=== PATIENT | male | born 1965 | race Caucasian/White ===

== ENCOUNTER 2017-04-05 08:40 | Outpatient (RCR) | payer MEDICAID, SELFPAY ==
[2017-04-05 08:48] VITALS: BP 103/62; PULSE 89; RESP 18; TEMP 36.8; BMI 56.7
--- NOTE | 2017-04-05 10:22 | PCM.WC.HP ---
(1) Chronic ulcer of left foot with fat layer exposed Status: Chronic Current Visit: Yes Code(s): L97.522 - Non-pressure chronic ulcer of other part of left foot with fat layer exposed (2) Ulcer of right lower extremity with fat layer exposed Status: Chronic Current Visit: Yes Code(s): L97.912 - Non-pressure chronic ulcer of unspecified part of right lower leg with fat layer exposed (3) Malnutrition Status: Chronic Current Visit: Yes Code(s): E46 - Unspecified protein-calorie malnutrition (4) PAD (peripheral artery disease) Status: Chronic Current Visit: Yes Code(s): I73.9 - Peripheral vascular disease, unspecified (5) Type 2 diabetes mellitus with diabetic polyneuropathy Status: Chronic Current Visit: Yes Code(s): E11.42 - Type 2 diabetes mellitus with diabetic polyneuropathy History of Present Illness Date of Service: 04/05/17 Chief Complaint: right leg ulcer. left foot ulcer History of Wound: This 50-year-old male with diabetes and peripheral vascular disease presents the wound care center for chronic right leg ulcer and his previous below-knee amputation stump site. Dr. Gamez performed his surgery on February 02, 2017 and he had a subsequent dehiscence and cellulitis that is now resolved. He also has a chronic left foot ulcer that has been present for almost 3 months. [facility]. He has been discharged by his surgeon at this time. He wears a surgical shoe on the left lower extremity to keep pressure off the ulcer site however he presents wearing a slipper today. He takes nutritional supplements including Fracisco at this time. He is previously known to our vascular surgeon, Dr. Cristina who treated him for a right popliteal occlusion with a stent. He did not have intervention performed on his left popliteal occlusion site and has a future follow-up. The exact date is not known at this time. He denies recent injury, fever, chill, nausea, redness, or odor. He is previously well known to me. Past Medical History Past Medical History: Chronic Problems CAD (coronary artery disease) (Chronic) Diabetes (Chronic) HTN (hypertension) (Chronic) Dyslipidemia (Chronic) Depression (Chronic) PAD (peripheral artery disease) (Chronic) Type 2 diabetes mellitus with diabetic polyneuropathy (Chronic) Chronic ulcer of left foot with fat layer exposed (Chronic) Ulcer of right lower extremity with fat layer exposed (Chronic) Malnutrition (Chronic) Past Medical History: Peripheral vascular disease, diabetes with neuropathy, history of heroin abuse Surgical History: - - surgeries for cellulitis on each side of groin, 2 foot amputations surgeries, right below-knee amputation, stent placement for right popliteal artery occlusion Allergies/Adverse Reactions: Allergies Penicillins [PCN] Allergy (Verified 04/05/17 09:04) Hives Home Medications: Ambulatory Orders Medication Instructions Recorded Acetaminophen [Tylenol Tablet] 325 - 650 mg PO Q6H PRN tablet 01/05/17 Clopidogrel Bisulfate [Plavix] 75 mg PO DAILY #30 tablet 01/05/17 Glucerna Shake 120 ml PO 4X/DAY 01/05/17 Lactobacillus Acidophilus 1 tablet PO BID #60 tablet 01/05/17 [Acidophilus] Mag Hydrox/Al Hydrox/Simeth 30 ml PO Q6H PRN PRN udc 01/05/17 [Mylanta II] Metformin HCl [Glucophage] 1,000 mg PO BIDCM #60 tablet 01/05/17 Metoprolol Tartrate [Lopressor 12.5 mg PO BID #60 tablet 01/05/17 (beta marina)] Nutritional Supplement [Fracisco - 1 packet PO BIDCM #60 packet 01/05/17 [place] FLAVOR] Bupropion HCl [Wellbutrin Xl] 150 mg PO DAILY 01/31/17 Aspirin 325 mg PO BIDCM tablet 02/06/17 Docusate Sodium [Colace] 200 mg PO BID PRN PRN capsule 02/06/17 Insulin Aspart [Novolog Flexpen] 4 units SC DAILY@0700 02/06/17 Insulin Aspart [Novolog Flexpen] 6 units SC DAILY@1100 02/06/17 Insulin Aspart [Novolog Flexpen] 6 units SC DAILY@1600 02/06/17 Insulin Detemir [Levemir FlexPen] 10 units SC QHS 02/06/17 - Family History Maternal No pertinent history Lives: Custodial Smoking Status: Current every day smoker Review of Systems Constitutional: Denies: Chills, Fever, Weakness Cardiovascular: Denies: Chest Pain, Edema Gastrointestinal: Denies: Nausea, Vomiting Musculoskeletal: Reports: Leg Pain - at wound, - - amputation right leg. Denies: Foot Pain Skin: Reports: Skin Changes, Wounds Neurological: Reports: Incoordination, Numbness, Tingling - Physical Exam Vital Signs Temp Pulse Resp BP 98.2 F 89 18 103/62 04/05/17 08:48 04/05/17 08:48 04/05/17 08:48 04/05/17 08:48 General: Alert, Oriented x3, Cooperative HEENT: Atraumatic Extremities: No cyanosis, Capillary Refill Less than 3 Seconds - Dorsal and plantar right below-knee amputation stump site and to all digits of the left foot, Diminished Peripheral Pulses, Edema - right leg stump site Skin: Ulcer/ Wound - No purulence, no erythema, no streaking, no infection, no odor bilateral. The left foot ulcer is decreased in size. The distal aspect of the wound has returned eschar and there is interspersed fibrous and granular base noted. There is no bone or deep tissue exposed Wound Measurements and Assessment - Nurse 1 - General Ulcer Measurement Start: 04/05/17 08:47 Freq: Status: Active Protocol: Activity Type Activity Date Activity User E-Sign Co-Sign Detail Recorded Client Recorded Date Recorded By Document 04/05/17 08:48 DL [id number] 04/05/17 09:00 DL 04/05/17 08:48 Wound Center Nurse 1 [Ulcer Assessment Protocol: WC.WD.LOC] #2 L Plantar -Current Size (cm) - Length 0.7 -Current Size (cm) - Width 0.3 -Current Size (cm) - Depth 0.3 -Total Square Cm 0.21 -Photo Taken Yes -Classification - Thickness Full Thickness without Exposed Support Structure -Exudate Amt Small (1-33%) -Exudate Type Serosanguineous -Wound Margin Distinct, Outline Attached -Granulation Amt Small (1-33%) -Granulation Quality [place] -Necrosis Amt Small (1-33%) -Necrotic Tissue Type Adherent Slough -Structure Exposed N/A -Moisture (Elena-wound Skin Appearance Dry/Scaly ) -Color (Elena-wound Skin Appearance) No Abnormality -Temperature (Elena-wound Skin No Abnormality Appearance) (Pt Warm) -Ulcer Cleansing Rinsed/ Irrigated with Saline -Foul Odor after Cleansing No -Anesthetic Used 4% Lidocaine Solution #1 R BKA Stump -Current Size (cm) - Length 2.2 -Current Size (cm) - Width 4.6 -Current Size (cm) - Depth 0.5 -Total Square Cm 10.12 -Photo Taken Yes -Classification - Thickness Full Thickness without Exposed Support Structure -Exudate Amt Medium (34-66%) -Exudate Type Serosanguineous -Wound Margin Distinct, Outline Attached -Granulation Amt Medium (34-66%) -Granulation Quality Red -Necrosis Amt Medium (34-66%) -Necrotic Tissue Type Adherent Slough -Structure Exposed N/A -Texture (Elena-wound Skin Appearance) No Abnormality -Moisture (Elena-wound Skin Appearance No Abnormality ) -Color (Elena-wound Skin Appearance) Erythema Rubor -Temperature (Elena-wound Skin No Abnormality Appearance) (Pt Warm) -Tenderness on Palpation (Elena-wound No Skin Appearance) -Ulcer Cleansing Wound Cleanser -Foul Odor after Cleansing No -Anesthetic Used 4% Lidocaine Solution [Edema Assessment] -Left Calf (cm) 34.5 -Left Ankle (cm) 22.2 WC - Nurse 2 - General Ulcer CM Notes Start: 04/05/17 08:47 Freq: Status: Active Protocol: Activity Type Activity Date Activity User E-Sign Co-Sign Detail Recorded Client Recorded Date Recorded By Document 04/05/17 09:24 [id number] 04/05/17 09:26 ALONDRA 04/05/17 09:24 Wound Center Nurse 2 [Procedure/Treatment] #2 L Plantar -Time 09:25 -Correct Patient Yes -Correct Side, Site, Position Yes -Correct Procedure Yes -Procedure Performed Yes -Type of Procedure Debridement -Clinical Debridement Subcutaneous -Post Debridement Size (cm) - Length 0.8 -Post Debridement Size (cm) - Width 0.3 -Post Debridement Size (cm) - Depth 0.3 -Total Square Cm 0.24 -Ulcer Cleansing Rinsed/ Irrigated with Saline -Foul Odor after Cleansing No -Bioengineered Tissue No -Cetacaine [place] No -Bleeding Controlled with Pressure -Treatment Response Procedure Tolerated Well #1 R BKA Stump -Time 09:26 -Correct Patient Yes -Correct Side, Site, Position Yes -Correct Procedure Yes -Procedure Performed Yes -Type of Procedure Debridement -Clinical Debridement Subcutaneous -Post Debridement Size (cm) - Length 2.3 -Post Debridement Size (cm) - Width 4.6 -Post Debridement Size (cm) - Depth 0.5 -Total Square Cm 10.58 -Wound/Ulcer Outcome Not Healed -Ulcer Cleansing Rinsed/ Irrigated with Saline -Foul Odor after Cleansing No -Bioengineered Tissue No -Cetacaine [place] No -Bleeding Controlled with Pressure -Treatment Response Procedure Tolerated Well [See Physician Procedure note for Specifics] Pain Scale: 0-10 Numeric [Pain] -Is Patient Pain Free? Yes Musculoskeletal: No Tenderness to Palpation of Joints or Extremities, Muscle Wasting, Tenderness - Pain with right ulcer manipulation and no pain to the left, - - Right below-knee amputation. Dorsal contraction of lesser digits prominent metatarsal head Neurological: - - Lack of epicritic sensation noted to left lower extremity Psych/Mental Status: Normal Affect, Appropriate Debridement Note Post-Debridement Measurements/Treatment WC - Nurse 2 - General Ulcer CM Notes Start: 04/05/17 08:47 Freq: Status: Active Protocol: Activity Type Activity Date Activity User E-Sign Co-Sign Detail Recorded Client Recorded Date Recorded By Document 04/05/17 09:24 ALONDRA [id number] 04/05/17 09:26 ALONDRA 04/05/17 09:24 Wound Center Nurse 2 #2 L Plantar -Time 09:25 -Correct Patient Yes -Correct Side, Site, Position Yes -Correct Procedure Yes -Procedure Performed Yes -Type of Procedure Debridement -Clinical Debridement Subcutaneous -Post Debridement Size (cm) - Length 0.8 -Post Debridement Size (cm) - Width 0.3 -Post Debridement Size (cm) - Depth 0.3 -Total Square Cm 0.24 -Ulcer Cleansing Rinsed/ Irrigated with Saline -Foul Odor after Cleansing No -Bioengineered Tissue No -Cetacaine [place] No -Bleeding Controlled with Pressure -Treatment Response Procedure Tolerated Well #1 R BKA Stump -Time 09:26 -Correct Patient Yes -Correct Side, Site, Position Yes -Correct Procedure Yes -Procedure Performed Yes -Type of Procedure Debridement -Clinical Debridement Subcutaneous -Post Debridement Size (cm) - Length 2.3 -Post Debridement Size (cm) - Width 4.6 -Post Debridement Size (cm) - Depth 0.5 -Total Square Cm 10.58 -Wound/Ulcer Outcome Not Healed -Ulcer Cleansing Rinsed/ Irrigated with Saline -Foul Odor after Cleansing No -Bioengineered Tissue No -Cetacaine [place] No -Bleeding Controlled with Pressure -Treatment Response Procedure Tolerated Well Pain Scale: 0-10 Numeric Is Patient Pain Free? Yes Wound debrided: Medial below-knee amputation stump site Laterality: Right Wound Grade/Stage: Grade 1 Type of Debridement: Excisional debridement Anesthesia Used: 4% Lidocaine Solution Depth: in the subcutaneous layer Percentage of wound debrided: 100 Instrument Used: #15 blade Tissue Removed: fibrous, devitalized subcutaneous, biofilm, slough, eschar Severity: Fat Layer Exposed Amount of bleeding with debridement: Mild Bleeding Controlled with: Pressure Patient tolerated procedure well - Additional Wound Wound debrided: Submetatarsal head Laterality: Left Wound Grade/Stage: Grade 1 Type of Debridement: Excisional debridement Anesthesia Used: 4% Lidocaine Solution Depth: in the subcutaneous layer Percentage of wound debrided: 100 Instrument Used: #15 blade Tissue Removed: fibrous, devitalized subcutaneous, biofilm, slough Severity: Fat Layer Exposed Amount of bleeding with debridement: Mild Bleeding Controlled with: Pressure Patient tolerated procedure: Patient tolerated procedure well Assessment/Plan Active Problems PAD (peripheral artery disease) (Chronic) Type 2 diabetes mellitus with diabetic polyneuropathy (Chronic) Chronic ulcer of left foot with fat layer exposed (Chronic) Ulcer of right lower extremity with fat layer exposed (Chronic) Malnutrition (Chronic) Assessment: Right leg ulcer with fat layer exposed. Left foot ulcer with fat layer exposed. Right below-knee amputation with medial dehiscence and resolved cellulitis. Left Hammer digit syndrome. Peripheral vascular disease status post stenting to the popliteal artery on the right lower extremity. Diabetes with peripheral neuropathy. Malnutrition. Delayed healing. History of drug abuse. Smoker Plan: I reviewed and discussed his plan today. Debridement was performed as noted in the clinical panel. I recommended Santyl application daily with gauze dressing. This was ordered and applied today. I recommend decreasing edema to the right lower extremity with standard moisture meter reader application. He does not have apparent left lower extremity edema. He has known peripheral vascular disease with right popliteal stenting performed by vascular surgeon, Dr. Cristina. 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 To optimize healing by drinking 2 Fracisco supplements daily at his [facility] facility. To keep weight off of his left foot by heel weightbearing in a surgical shoe. This was previously provided. I will continue to monitor him with serial foot x-rays and labs. He was reassured there are no clinical signs of infection noted today. I recommend he follows up in 1 week or call sooner if he has any questions or concerns. To DC smoking to also optimize healing.
--- NOTE | 2017-04-05 10:33 | HP.PCM_ITS ---
(1) Chronic ulcer of left foot with fat layer exposed Status: Chronic Current Visit: Yes Code(s): L97.522 - Non-pressure chronic ulcer of other part of left foot with fat layer exposed (2) Ulcer of right lower extremity with fat layer exposed Status: Chronic Current Visit: Yes Code(s): L97.912 - Non-pressure chronic ulcer of unspecified part of right lower leg with fat layer exposed (3) Malnutrition Status: Chronic Current Visit: Yes Code(s): E46 - Unspecified protein- calorie malnutrition (4) PAD (peripheral artery disease) Status: Chronic Current Visit: Yes Code(s): I73.9 - Peripheral vascular disease, unspecified (5) Type 2 diabetes mellitus with diabetic polyneuropathy Status: Chronic Current Visit: Yes Code(s): E11.42 - Type 2 diabetes mellitus with diabetic polyneuropathy History of Present Illness Date of Service: 04/05/17 Chief Complaint: right leg ulcer. left foot ulcer History of Wound: This 50-year-old male with diabetes and peripheral vascular disease presents the wound care center for chronic right leg ulcer and his previous below-knee amputation stump site. Dr. Gamez performed his surgery on February 02, 2017 and he had a subsequent dehiscence and cellulitis that is now resolved. He also has a chronic left foot ulcer that has been present for almost 3 months. He resides at a long-term facility. He has been discharged by his surgeon at this time. He wears a surgical shoe on the left lower extremity to keep pressure off the ulcer site however he presents wearing a slipper today. He takes nutritional supplements including Fracisco at this time. He is previously known to our vascular surgeon, Dr. Cristina who treated him for a right popliteal occlusion with a stent. He did not have intervention performed on his left popliteal occlusion site and has a future follow-up. The exact date is not known at this time. He denies recent injury, fever, chill, nausea, redness, or odor. He is previously well known to me. Past Medical History Past Medical History: Chronic Problems CAD (coronary artery disease) (Chronic) Diabetes (Chronic) HTN (hypertension) (Chronic) Dyslipidemia (Chronic) Depression (Chronic) PAD (peripheral artery disease) (Chronic) Type 2 diabetes mellitus with diabetic polyneuropathy (Chronic) Chronic ulcer of left foot with fat layer exposed (Chronic) Ulcer of right lower extremity with fat layer exposed (Chronic) Malnutrition (Chronic) Past Medical History: Peripheral vascular disease, diabetes with neuropathy, history of heroin abuse Surgical History: - - surgeries for cellulitis on each side of groin, 2 foot amputations surgeries, right below-knee amputation, stent placement for right popliteal artery occlusion Allergies/Adverse Reactions: Allergies Penicillins [PCN] Allergy (Verified 04/05/17 09:04) Hives Home Medications: Ambulatory Orders Medication Instructions Recorded Acetaminophen [Tylenol Tablet] 325 - 650 mg PO Q6H PRN tablet 01/05/17 Clopidogrel Bisulfate [Plavix] 75 mg PO DAILY #30 tablet 01/05/17 Glucerna Shake 120 ml PO 4X/DAY 01/05/17 Lactobacillus Acidophilus 1 tablet PO BID #60 tablet 01/05/17 [Acidophilus] Mag Hydrox/Al Hydrox/Simeth 30 ml PO Q6H PRN PRN udc 01/05/17 [Mylanta II] Metformin HCl [Glucophage] 1,000 mg PO BIDCM #60 tablet 01/05/17 Metoprolol Tartrate [Lopressor 12.5 mg PO BID #60 tablet 01/05/17 (beta marina)] Nutritional Supplement [Fracisco - 1 packet PO BIDCM #60 packet 01/05/17 ORANGE FLAVOR] Bupropion HCl [Wellbutrin Xl] 150 mg PO DAILY 01/31/17 Aspirin 325 mg PO BIDCM tablet 02/06/17 Docusate Sodium [Colace] 200 mg PO BID PRN PRN capsule 02/06/17 Insulin Aspart [Novolog Flexpen] 4 units SC DAILY@0700 02/06/17 Insulin Aspart [Novolog Flexpen] 6 units SC DAILY@1100 02/06/17 Insulin Aspart [Novolog Flexpen] 6 units SC DAILY@1600 02/06/17 Insulin Detemir [Levemir FlexPen] 10 units SC QHS 02/06/17 - Family History Maternal No pertinent history Lives: Custodial Smoking Status: Current every day smoker Review of Systems Constitutional: Denies: Chills, Fever, Weakness Cardiovascular: Denies: Chest Pain, Edema Gastrointestinal: Denies: Nausea, Vomiting Musculoskeletal: Reports: Leg Pain - at wound, - - amputation right leg. Denies : Foot Pain Skin: Reports: Skin Changes, Wounds Neurological: Reports: Incoordination, Numbness, Tingling - Physical Exam Vital Signs Temp Pulse Resp BP 98.2 F 89 18 103/62 04/05/17 08:48 04/05/17 08:48 04/05/17 08:48 04/05/17 08:48 General: Alert, Oriented x3, Cooperative HEENT: Atraumatic Extremities: No cyanosis, Capillary Refill Less than 3 Seconds - Dorsal and plantar right below-knee amputation stump site and to all digits of the left foot, Diminished Peripheral Pulses, Edema - right leg stump site Skin: Ulcer/ Wound - No purulence, no erythema, no streaking, no infection, no odor bilateral. The left foot ulcer is decreased in size. The distal aspect of the wound has returned eschar and there is interspersed fibrous and granular base noted. There is no bone or deep tissue exposed Wound Measurements and Assessment - Nurse 1 - General Ulcer Measurement Start: 04/05/17 08:47 Freq: Status: Active Protocol: Activity Type Activity Date Activity User E-Sign Co-Sign Detail Recorded Client Recorded Date Recorded By Document 04/05/17 08:48 DL [id number] 04/05/17 09:00 DL 04/05/17 08:48 Wound Center Nurse 1 [Ulcer Assessment Protocol: WC.WD.LOC] #2 L Plantar -Current Size (cm) - Length 0.7 -Current Size (cm) - Width 0.3 -Current Size (cm) - Depth 0.3 -Total Square Cm 0.21 -Photo Taken Yes -Classification - Thickness Full Thickness without Exposed Support Structure -Exudate Amt Small (1-33%) -Exudate Type Serosanguineous -Wound Margin Distinct, Outline Attached -Granulation Amt Small (1-33%) -Granulation Quality [place] -Necrosis Amt Small (1-33%) -Necrotic Tissue Type Adherent Slough -Structure Exposed N/A -Moisture (Elena-wound Skin Appearance Dry/Scaly ) -Color (Elena-wound Skin Appearance) No Abnormality -Temperature (Elena-wound Skin No Abnormality Appearance) (Pt Warm) -Ulcer Cleansing Rinsed/ Irrigated with Saline -Foul Odor after Cleansing No -Anesthetic Used 4% Lidocaine Solution #1 R BKA Stump -Current Size (cm) - Length 2.2 -Current Size (cm) - Width 4.6 -Current Size (cm) - Depth 0.5 -Total Square Cm 10.12 -Photo Taken Yes -Classification - Thickness Full Thickness without Exposed Support Structure -Exudate Amt Medium (34-66%) -Exudate Type Serosanguineous -Wound Margin Distinct, Outline Attached -Granulation Amt Medium (34-66%) -Granulation Quality Red -Necrosis Amt Medium (34-66%) -Necrotic Tissue Type Adherent Slough -Structure Exposed N/A -Texture (Elena-wound Skin Appearance) No Abnormality -Moisture (Elena-wound Skin Appearance No Abnormality ) -Color (Elena-wound Skin Appearance) Erythema Rubor -Temperature (Elena-wound Skin No Abnormality Appearance) (Pt Warm) -Tenderness on Palpation (Elena-wound No Skin Appearance) -Ulcer Cleansing Wound Cleanser -Foul Odor after Cleansing No -Anesthetic Used 4% Lidocaine Solution [Edema Assessment] -Left Calf (cm) 34.5 -Left Ankle (cm) 22.2 WC - Nurse 2 - General Ulcer CM Notes Start: 04/05/17 08:47 Freq: Status: Active Protocol: Activity Type Activity Date Activity User E-Sign Co-Sign Detail Recorded Client Recorded Date Recorded By Document 04/05/17 09:24 [id number] 04/05/17 09:26 ALONDRA 04/05/17 09:24 Wound Center Nurse 2 [Procedure/Treatment] #2 L Plantar -Time 09:25 -Correct Patient Yes -Correct Side, Site, Position Yes -Correct Procedure Yes -Procedure Performed Yes -Type of Procedure Debridement -Clinical Debridement Subcutaneous -Post Debridement Size (cm) - Length 0.8 -Post Debridement Size (cm) - Width 0.3 -Post Debridement Size (cm) - Depth 0.3 -Total Square Cm 0.24 -Ulcer Cleansing Rinsed/ Irrigated with Saline -Foul Odor after Cleansing No -Bioengineered Tissue No -Cetacaine Hamer No -Bleeding Controlled with Pressure -Treatment Response Procedure Tolerated Well #1 R BKA Stump -Time 09:26 -Correct Patient Yes -Correct Side, Site, Position Yes -Correct Procedure Yes -Procedure Performed Yes -Type of Procedure Debridement -Clinical Debridement Subcutaneous -Post Debridement Size (cm) - Length 2.3 -Post Debridement Size (cm) - Width 4.6 -Post Debridement Size (cm) - Depth 0.5 -Total Square Cm 10.58 -Wound/Ulcer Outcome Not Healed -Ulcer Cleansing Rinsed/ Irrigated with Saline -Foul Odor after Cleansing No -Bioengineered Tissue No -Cetacaine Hamer No -Bleeding Controlled with Pressure -Treatment Response Procedure Tolerated Well [See Physician Procedure note for Specifics] Pain Scale: 0-10 Numeric [Pain] -Is Patient Pain Free? Yes Musculoskeletal: No Tenderness to Palpation of Joints or Extremities, Muscle Wasting, Tenderness - Pain with right ulcer manipulation and no pain to the left , - - Right below-knee amputation. Dorsal contraction of lesser digits prominent metatarsal head Neurological: - - Lack of epicritic sensation noted to left lower extremity Psych/Mental Status: Normal Affect, Appropriate Debridement Note Post-Debridement Measurements/Treatment WC - Nurse 2 - General Ulcer CM Notes Start: 04/05/17 08:47 Freq: Status: Active Protocol: Activity Type Activity Date Activity User E-Sign Co-Sign Detail Recorded Client Recorded Date Recorded By Document 04/05/17 09:24 ALONDRA [id number] 04/05/17 09:26 ALONDRA 04/05/17 09:24 Wound Center Nurse 2 #2 L Plantar -Time 09:25 -Correct Patient Yes -Correct Side, Site, Position Yes -Correct Procedure Yes -Procedure Performed Yes -Type of Procedure Debridement -Clinical Debridement Subcutaneous -Post Debridement Size (cm) - Length 0.8 -Post Debridement Size (cm) - Width 0.3 -Post Debridement Size (cm) - Depth 0.3 -Total Square Cm 0.24 -Ulcer Cleansing Rinsed/ Irrigated with Saline -Foul Odor after Cleansing No -Bioengineered Tissue No -Cetacaine Hamer No -Bleeding Controlled with Pressure -Treatment Response Procedure Tolerated Well #1 R BKA Stump -Time 09:26 -Correct Patient Yes -Correct Side, Site, Position Yes -Correct Procedure Yes -Procedure Performed Yes -Type of Procedure Debridement -Clinical Debridement Subcutaneous -Post Debridement Size (cm) - Length 2.3 -Post Debridement Size (cm) - Width 4.6 -Post Debridement Size (cm) - Depth 0.5 -Total Square Cm 10.58 -Wound/Ulcer Outcome Not Healed -Ulcer Cleansing Rinsed/ Irrigated with Saline -Foul Odor after Cleansing No -Bioengineered Tissue No -Cetacaine Hamer No -Bleeding Controlled with Pressure -Treatment Response Procedure Tolerated Well Pain Scale: 0-10 Numeric Is Patient Pain Free? Yes Wound debrided: Medial below-knee amputation stump site Laterality: Right Wound Grade/Stage: Grade 1 Type of Debridement: Excisional debridement Anesthesia Used: 4% Lidocaine Solution Depth: in the subcutaneous layer Percentage of wound debrided: 100 Instrument Used: #15 blade Tissue Removed: fibrous, devitalized subcutaneous, biofilm, slough, eschar Severity: Fat Layer Exposed Amount of bleeding with debridement: Mild Bleeding Controlled with: Pressure Patient tolerated procedure well - Additional Wound Wound debrided: Submetatarsal head Laterality: Left Wound Grade/Stage: Grade 1 Type of Debridement: Excisional debridement Anesthesia Used: 4% Lidocaine Solution Depth: in the subcutaneous layer Percentage of wound debrided: 100 Instrument Used: #15 blade Tissue Removed: fibrous, devitalized subcutaneous, biofilm, slough Severity: Fat Layer Exposed Amount of bleeding with debridement: Mild Bleeding Controlled with: Pressure Patient tolerated procedure: Patient tolerated procedure well Assessment/Plan Active Problems PAD (peripheral artery disease) (Chronic) Type 2 diabetes mellitus with diabetic polyneuropathy (Chronic) Chronic ulcer of left foot with fat layer exposed (Chronic) Ulcer of right lower extremity with fat layer exposed (Chronic) Malnutrition (Chronic) Assessment: Right leg ulcer with fat layer exposed. Left foot ulcer with fat layer exposed. Right below-knee amputation with medial dehiscence and resolved cellulitis. Left Hammer digit syndrome. Peripheral vascular disease status post stenting to the popliteal artery on the right lower extremity. Diabetes with peripheral neuropathy. Malnutrition. Delayed healing. History of drug abuse. Smoker Plan: I reviewed and discussed his plan today. Debridement was performed as noted in the clinical panel. I recommended Santyl application daily with gauze dressing. This was ordered and applied today. I recommend decreasing edema to the right lower extremity with standard aeronautical engineering professor application. He does not have apparent left lower extremity edema. He has known peripheral vascular disease with right popliteal stenting performed by vascular surgeon, Dr. Cristina. 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 To optimize healing by drinking 2 Fracisco supplements daily at his long-term facility. To keep weight off of his left foot by heel weightbearing in a surgical shoe. This was previously provided. I will continue to monitor him with serial foot x-rays and labs. He was reassured there are no clinical signs of infection noted today. I recommend he follows up in 1 week or call sooner if he has any questions or concerns. To DC smoking to also optimize healing.
== END 2017-04-26 23:59 ==
LOC: WC 08:40
PROVIDERS: Visit Provider Podiatrist
DX: E11.621 Type 2 diabetes mellitus with foot ulcer (principal); L97.812 Non-pressure chronic ulcer of other part of right lower leg with fat layer exposed; L97.522 Non-pressure chronic ulcer of other part of left foot with fat layer exposed; E11.622 Type 2 diabetes mellitus with other skin ulcer; E11.51 Type 2 diabetes mellitus with diabetic peripheral angiopathy without gangrene; E11.42 Type 2 diabetes mellitus with diabetic polyneuropathy; Z89.511 Acquired absence of right leg below knee; I25.10 Atherosclerotic heart disease of native coronary artery without angina pectoris; I10 Essential (primary) hypertension; E78.5 Hyperlipidemia, unspecified; Z79.899 Other long term (current) drug therapy; F41.9 Anxiety disorder, unspecified; Z79.02 Long term (current) use of antithrombotics/antiplatelets; Z79.4 Long term (current) use of insulin; Z79.82 Long term (current) use of aspirin; F17.200 Nicotine dependence, unspecified, uncomplicated
CPT/HCPCS: 11042; 99213; G0463

== ENCOUNTER 2017-05-24 13:30 | Outpatient (RCR) | payer MEDICAID, SELFPAY ==
[2017-01-02 14:15] VITALS: BP 115/62
[2017-04-05 08:48] VITALS: BP 103/62
[2017-04-27 01:06] VITALS: PULSE 89; RESP 18; TEMP 36.8
[2017-05-03 09:54] VITALS: BP 121/84; PULSE 83; RESP 16; TEMP 36.8; BMI 56.7
--- NOTE | 2017-05-03 10:36 | PCM.WC.PN ---
(1) Hammer toe of right foot Status: Chronic Current Visit: Yes Code(s): M20.41 - Other hammer toe(s) (acquired), right foot (2) Type 2 diabetes mellitus with diabetic polyneuropathy Status: Chronic Current Visit: Yes Code(s): E11.42 - Type 2 diabetes mellitus with diabetic polyneuropathy (3) Ulcer of right lower extremity with fat layer exposed Status: Chronic Current Visit: Yes Code(s): L97.912 - Non-pressure chronic ulcer of unspecified part of right lower leg with fat layer exposed (4) Chronic ulcer of left foot with fat layer exposed Status: Chronic Current Visit: Yes Code(s): L97.522 - Non-pressure chronic ulcer of other part of left foot with fat layer exposed (5) History of right below knee amputation Status: Chronic Current Visit: Yes Code(s): Z89.511 - Acquired absence of right leg below knee Type of Wound Date of Service: 05/03/17 Chief Complaint: right leg ulcer. left foot ulcer History of Wound: This 50-year-old male with diabetes and peripheral vascular disease presents the wound care center for chronic right leg ulcer and his previous below-knee amputation stump site. Dr. Gamez performed his surgery on February 02, 2017 and he had a subsequent dehiscence. He wears a surgical shoe to the left foot and tries to walk on his heel. He started wearing a shrink wrap to the right lower extremity preparation for eventual prosthesis. Progress of Wound: Stable - Physical Exam Vital Signs Temp Pulse Resp BP 98.2 F 83 16 121/84 H 05/03/17 09:54 05/03/17 09:54 05/03/17 09:54 05/03/17 09:54 General: Alert, Oriented x3, Cooperative Extremities: No cyanosis, Capillary Refill Less than 3 Seconds, No Calf Tenderness - Negative Germán and Cobian left, Diminished Peripheral Pulses, Edema, - - Right below-knee amputation Skin: Ulcer/ Wound - No purulence, no erythema, no streaking, no acute infection. There is some eschar that has reformed to the distal aspect of the right leg stump., - - hairless and atrophic Wound Measurements and Assessment WC - Nurse 1 - General Ulcer Measurement Start: 05/03/17 09:54 Freq: Status: Active Protocol: Activity Type Activity Date Activity User E-Sign Co-Sign Detail Recorded Client Recorded Date Recorded By Document 05/03/17 09:54 DL [id number] 05/03/17 10:04 DL 05/03/17 09:54 Wound Center Nurse 1 [Ulcer Assessment Protocol: WC.WD.LOC] #2 L Plantar -Current Size (cm) - Length 0.6 -Current Size (cm) - Width 0.3 -Current Size (cm) - Depth 0.2 -Total Square Cm 0.18 -Photo Taken No -Maximum Distance #2 (cm) 0.2 -Circular Undermining Yes -Exudate Amt Small (1-33%) -Exudate Type Serosanguineous -Wound Margin Distinct, Outline Attached -Granulation Amt Small (1-33%) -Granulation Quality [place] -Necrosis Amt None Present (0 %) -Structure Exposed N/A -Texture (Elena-wound Skin Appearance) Scarring -Moisture (Elena-wound Skin Appearance No Abnormality ) -Color (Elena-wound Skin Appearance) No Abnormality -Temperature (Elena-wound Skin No Abnormality Appearance) (Pt Warm) -Ulcer Cleansing Rinsed/ Irrigated with Saline -Foul Odor after Cleansing No -Anesthetic Used 4% Lidocaine Solution #1 R BKA Stump -Current Size (cm) - Length 2.4 -Current Size (cm) - Width 4.9 -Current Size (cm) - Depth 0.1 -Total Square Cm 11.76 -Photo Taken No -Exudate Amt Small (1-33%) -Exudate Type Serosanguineous -Wound Margin Distinct, Outline Attached -Granulation Amt Small (1-33%) -Granulation Quality Red -Necrosis Amt Large (67-100%) -Necrotic Tissue Type Adherent Slough -Structure Exposed N/A -Texture (Elena-wound Skin Appearance) No Abnormality -Moisture (Elena-wound Skin Appearance No Abnormality ) -Color (Elena-wound Skin Appearance) No Abnormality -Temperature (Elena-wound Skin No Abnormality Appearance) (Pt Warm) -Ulcer Cleansing Rinsed/ Irrigated with Saline -Foul Odor after Cleansing No -Anesthetic Used 4% Lidocaine Solution [Edema Assessment] -Left Calf (cm) 34.5 -Left Ankle (cm) 21.8 WC - Nurse 2 - General Ulcer CM Notes Start: 05/03/17 09:54 Freq: Status: Active Protocol: Activity Type Activity Date Activity User E-Sign Co-Sign Detail Recorded Client Recorded Date Recorded By Document 05/03/17 10:21 [id number] 05/03/17 10:24 05/03/17 10:21 Wound Center Nurse 2 [Procedure/Treatment] #2 L Plantar -Time 10:21 -Correct Patient Yes -Correct Side, Site, Position Yes -Correct Procedure Yes -Procedure Performed Yes -Type of Procedure Debridement -Clinical Debridement Subcutaneous -Post Debridement Size (cm) - Length 0.7 -Post Debridement Size (cm) - Width 0.4 -Post Debridement Size (cm) - Depth 0.2 -Total Square Cm 0.28 -Wound/Ulcer Outcome Not Healed -Ulcer Cleansing Rinsed/ Irrigated with Saline -Foul Odor after Cleansing No -Bioengineered Tissue No -Bleeding Controlled with Pressure -Treatment Response Procedure Tolerated Well #1 R BKA Stump -Time 10:22 -Correct Patient Yes -Correct Side, Site, Position Yes -Correct Procedure Yes -Procedure Performed Yes -Type of Procedure Debridement -Clinical Debridement Subcutaneous -Post Debridement Size (cm) - Length 2.5 -Post Debridement Size (cm) - Width 5.0 -Post Debridement Size (cm) - Depth 0.1 -Total Square Cm 12.50 -Wound/Ulcer Outcome Not Healed -Ulcer Cleansing Rinsed/ Irrigated with Saline -Foul Odor after Cleansing No -Bioengineered Tissue No -Bleeding Controlled with Pressure -Treatment Response Procedure Tolerated Well [See Physician Procedure note for Specifics] Pain Scale: 0-10 Numeric [Pain] -Is Patient Pain Free? Yes Musculoskeletal: No Tenderness to Palpation of Joints or Extremities, Muscle Wasting, Tenderness - right ulcer site, - - contraction of lesser toes and prominent metatarsal head Neurological: - - lack of epicritic sensation via light touch left lower extremity Psych/Mental Status: Normal Affect, Appropriate Debridement Note Post-Debridement Measurements/Treatment WC - Nurse 2 - General Ulcer CM Notes Start: 05/03/17 09:54 Freq: Status: Active Protocol: Activity Type Activity Date Activity User E-Sign Co-Sign Detail Recorded Client Recorded Date Recorded By Document 05/03/17 10:21 [id number] 05/03/17 10:24 05/03/17 10:21 Wound Center Nurse 2 #2 L Plantar -Time 10:21 -Correct Patient Yes -Correct Side, Site, Position Yes -Correct Procedure Yes -Procedure Performed Yes -Type of Procedure Debridement -Clinical Debridement Subcutaneous -Post Debridement Size (cm) - Length 0.7 -Post Debridement Size (cm) - Width 0.4 -Post Debridement Size (cm) - Depth 0.2 -Total Square Cm 0.28 -Wound/Ulcer Outcome Not Healed -Ulcer Cleansing Rinsed/ Irrigated with Saline -Foul Odor after Cleansing No -Bioengineered Tissue No -Bleeding Controlled with Pressure -Treatment Response Procedure Tolerated Well #1 R BKA Stump -Time 10:22 -Correct Patient Yes -Correct Side, Site, Position Yes -Correct Procedure Yes -Procedure Performed Yes -Type of Procedure Debridement -Clinical Debridement Subcutaneous -Post Debridement Size (cm) - Length 2.5 -Post Debridement Size (cm) - Width 5.0 -Post Debridement Size (cm) - Depth 0.1 -Total Square Cm 12.50 -Wound/Ulcer Outcome Not Healed -Ulcer Cleansing Rinsed/ Irrigated with Saline -Foul Odor after Cleansing No -Bioengineered Tissue No -Bleeding Controlled with Pressure -Treatment Response Procedure Tolerated Well Pain Scale: 0-10 Numeric Is Patient Pain Free? Yes Wound debrided: plantar foot Laterality: Left Wound Grade/Stage: grade 1 Type of Debridement: Excisional debridement Anesthesia Used: 4% Lidocaine Solution Depth: in the subcutaneous layer Percentage of wound debrided: 100 Instrument Used: #15 blade Tissue Removed: fibrous, devitalized subcutaneous, biofilm, slough Severity: Fat Layer Exposed Amount of bleeding with debridement: Mild Bleeding Controlled with: Pressure Patient tolerated procedure well - Additional Wound Wound debrided: bka stump site Laterality: Right Wound Grade/Stage: grade 1 Type of Debridement: Excisional debridement Anesthesia Used: 4% Lidocaine Solution Depth: in the subcutaneous layer Percentage of wound debrided: 100 Instrument Used: #15 blade Tissue Removed: fibrous, devitalized subcutaneous, biofilm, slough Severity: Fat Layer Exposed Amount of bleeding with debridement: Mild Bleeding Controlled with: Pressure Patient tolerated procedure: Patient tolerated procedure well Assessment/Plan Active Problems Hammer toe of right foot (Chronic) History of right below knee amputation (Chronic) Type 2 diabetes mellitus with diabetic polyneuropathy (Chronic) Ulcer of right lower extremity with fat layer exposed (Chronic) Chronic ulcer of left foot with fat layer exposed (Chronic) Assessment: Right leg ulcer with fat layer exposed. Left foot ulcer with fat layer exposed. Right below-knee amputation with medial dehiscence and resolved cellulitis. Left Hammer digit syndrome. Peripheral vascular disease status post stenting to the popliteal artery on the right lower extremity. Diabetes with peripheral neuropathy. Malnutrition. Delayed healing. History of drug abuse. Smoker Plan: I reviewed and discussed his plan today. Debridement was performed as noted in the clinical panel. I recommended Santyl application daily with gauze dressing. This was ordered and applied today. I recommend decreasing edema to the right lower extremity with standard medical staff credentialing coordinator application. He does not have apparent left lower extremity edema. He has known peripheral vascular disease with right popliteal stenting performed by vascular surgeon, Dr. Cristina. 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 To optimize healing by drinking two Fracisco supplements daily at his residential facility. To keep weight off of his left foot by heel weightbearing in a surgical shoe. This was previously provided. Additional offloading felt pad was applied. I will continue to monitor him with serial foot x-rays and labs. He was reassured there are no clinical signs of infection noted today. I recommend he follows up in 1 week or call sooner if he has any questions or concerns. To DC smoking to also optimize healing.
[2017-05-10 09:20] VITALS: BP 131/60; PULSE 86; RESP 18; TEMP 36.9; BMI 56.7
--- NOTE | 2017-05-10 11:35 | PCM.WC.PN ---
(1) Chronic ulcer of left foot with fat layer exposed Status: Chronic Code(s): L97.522 - Non-pressure chronic ulcer of other part of left foot with fat layer exposed (2) Ulcer of right lower extremity with fat layer exposed Status: Chronic Code(s): L97.912 - Non-pressure chronic ulcer of unspecified part of right lower leg with fat layer exposed (3) Type 2 diabetes mellitus with diabetic polyneuropathy Status: Chronic Code(s): E11.42 - Type 2 diabetes mellitus with diabetic polyneuropathy (4) History of right below knee amputation Status: Chronic Code(s): Z89.511 - Acquired absence of right leg below knee Type of Wound Date of Service: 05/13/17 Chief Complaint: right leg ulcer. left foot ulcer History of Wound: This 52-year-old male with diabetes and peripheral vascular disease presents the wound care center for chronic right leg ulcer and his previous below-knee amputation stump site. He wears a surgical shoe to the left foot and tries to walk on his heel. He is having difficulty maintaining control of his left ankle and ask for a different brace or boot. He resides at a long-term facility. Progress of Wound: Improving - Physical Exam Vital Signs Temp Pulse Resp BP 98.4 F 86 18 131/60 H 05/10/17 09:20 05/10/17 09:20 05/10/17 09:20 05/10/17 09:20 General: Alert, Oriented x3, Cooperative Extremities: No cyanosis, Capillary Refill Less than 3 Seconds, No Calf Tenderness - Negative Germán and Cobian left, Diminished Peripheral Pulses, Edema - Controlled Skin: Ulcer/ Wound - No purulence, no erythema, no streaking, no odor. There is decreased necrosis to the plantar aspect of the right ulcer stump site. There is no exposed bone or tissue noted., - - The skin is atrophic Wound Measurements and Assessment BRET - Nurse 1 - General Ulcer Measurement Start: 05/03/17 09:54 Freq: Status: Active Protocol: Activity Type Activity Date Activity User E-Sign Co-Sign Detail Recorded Client Recorded Date Recorded By Document 05/10/17 09:20 ALONDRA [id number] 05/10/17 09:22 ALONDRA 05/10/17 09:20 Wound Center Nurse 1 [Ulcer Assessment Protocol: BRET.ELVIA.LOC] #2 L Plantar -Combined with other wound No -Current Size (cm) - Length 0.4 -Current Size (cm) - Width 0.3 -Current Size (cm) - Depth 0.1 -Total Square Cm 0.12 -Photo Taken No -Epithelialization Small 1-33% -Tunneling No -Undermining/Tunneling No -Circular Undermining No -Exudate Amt None Present (0 %) -Wound Margin Flat & Intact -Granulation Amt None Present (0 %) -Slough/Fibrin Yes -Necrosis Amt Large (67-100%) -Necrotic Tissue Type Adherent Slough -Structure Exposed N/A -Texture (Elena-wound Skin Appearance) Assessed Callus -Moisture (Elena-wound Skin Appearance Assessed ) -Color (Elena-wound Skin Appearance) Assessed -Temperature (Elena-wound Skin No Abnormality Appearance) (Pt Warm) -Tenderness on Palpation (Elena-wound No Skin Appearance) -Ulcer Cleansing Rinsed/ Irrigated with Saline -Foul Odor after Cleansing No -Anesthetic Used 4% Lidocaine Solution #1 R BKA Stump -Combined with other wound No -Current Size (cm) - Length 2 -Current Size (cm) - Width 5 -Current Size (cm) - Depth 0.2 -Total Square Cm 10 -Photo Taken No -Epithelialization None Present -Tunneling No -Undermining/Tunneling No -Circular Undermining No -Exudate Amt Medium (34-66%) -Exudate Type Serosanguineous -Wound Margin Flat & Intact -Granulation Amt Medium (34-66%) -Granulation Quality Red -Slough/Fibrin Yes -Necrosis Amt Small (1-33%) -Necrotic Tissue Type Adherent Slough -Structure Exposed N/A -Texture (Elena-wound Skin Appearance) Assessed -Moisture (Elena-wound Skin Appearance Assessed ) Dry/Scaly -Color (Elena-wound Skin Appearance) Assessed -Temperature (Elena-wound Skin No Abnormality Appearance) (Pt Warm) -Tenderness on Palpation (Elena-wound No Skin Appearance) -Ulcer Cleansing Rinsed/ Irrigated with Saline -Foul Odor after Cleansing No -Anesthetic Used 4% Lidocaine Solution [Edema Assessment] -Lower Limb Edema Present Yes -Right Calf (cm) 33.0 -Left Calf (cm) 34.3 -Left Ankle (cm) 22.3 WC - Nurse 2 - General Ulcer CM Notes Start: 05/03/17 09:54 Freq: Status: Active Protocol: Activity Type Activity Date Activity User E-Sign Co-Sign Detail Recorded Client Recorded Date Recorded By Document 05/10/17 09:54 TM [id number] 05/10/17 09:55 05/10/17 09:54 Wound Center Nurse 2 [Procedure/Treatment] #2 L Plantar -Time 09:54 -Correct Patient Yes -Correct Side, Site, Position Yes -Correct Procedure Yes -Procedure Performed Yes -Type of Procedure Debridement -Clinical Debridement Subcutaneous -Post Debridement Size (cm) - Length 0.5 -Post Debridement Size (cm) - Width 0.4 -Post Debridement Size (cm) - Depth 0.2 -Total Square Cm 0.20 -Wound/Ulcer Outcome Not Healed -Ulcer Cleansing Rinsed/ Irrigated with Saline -Foul Odor after Cleansing No -Bioengineered Tissue No -Topical Lidocaine (%) 4 -Bleeding Controlled with Pressure -Treatment Response Procedure Tolerated Well #1 R BKA Stump -Time 09:54 -Correct Patient Yes -Correct Side, Site, Position Yes -Correct Procedure Yes -Procedure Performed Yes -Type of Procedure Debridement -Clinical Debridement Subcutaneous -Post Debridement Size (cm) - Length 2.1 -Post Debridement Size (cm) - Width 5.1 -Post Debridement Size (cm) - Depth 0.2 -Total Square Cm 10.71 -Wound/Ulcer Outcome Not Healed -Ulcer Cleansing Rinsed/ Irrigated with Saline -Foul Odor after Cleansing No -Bioengineered Tissue No -Topical Lidocaine (%) 4 -Bleeding Controlled with Pressure -Treatment Response Procedure Not Tolerated Well [See Physician Procedure note for Specifics] Pain Scale: 0-10 Numeric [Pain] -Is Patient Pain Free? Yes Musculoskeletal: No Tenderness to Palpation of Joints or Extremities, Muscle Wasting, - - Right below-knee amputation. Dorsal contraction of lesser digits left foot with prominent metatarsal head region. Neurological: - - Lack of epicritic sensation light touch left lower extremity Psych/Mental Status: Normal Affect, Appropriate Debridement Note Post-Debridement Measurements/Treatment WC - Nurse 2 - General Ulcer CM Notes Start: 05/03/17 09:54 Freq: Status: Active Protocol: Activity Type Activity Date Activity User E-Sign Co-Sign Detail Recorded Client Recorded Date Recorded By Document 05/03/17 10:21 TM [id number] 05/03/17 10:24 TM Document 05/10/17 09:54 [id number] 05/10/17 09:55 05/03/17 05/10/17 10:21 09:54 Wound Center Nurse 2 #2 L Plantar -Time 10:21 09:54 -Correct Patient Yes Yes -Correct Side, Site, Position Yes Yes -Correct Procedure Yes Yes -Procedure Performed Yes Yes -Type of Procedure Debridement Debridement -Clinical Debridement Subcutaneous Subcutaneous -Post Debridement Size (cm) - Length 0.7 0.5 -Post Debridement Size (cm) - Width 0.4 0.4 -Post Debridement Size (cm) - Depth 0.2 0.2 -Total Square Cm 0.28 0.20 -Wound/Ulcer Outcome Not Healed Not Healed -Ulcer Cleansing Rinsed/ Rinsed/ Irrigated with Irrigated with Saline Saline -Foul Odor after Cleansing No No -Bioengineered Tissue No No -Topical Lidocaine (%) 4 -Bleeding Controlled with Pressure Pressure -Treatment Response Procedure Procedure Tolerated Well Tolerated Well #1 R BKA Stump -Time 10:22 09:54 -Correct Patient Yes Yes -Correct Side, Site, Position Yes Yes -Correct Procedure Yes Yes -Procedure Performed Yes Yes -Type of Procedure Debridement Debridement -Clinical Debridement Subcutaneous Subcutaneous -Post Debridement Size (cm) - Length 2.5 2.1 -Post Debridement Size (cm) - Width 5.0 5.1 -Post Debridement Size (cm) - Depth 0.1 0.2 -Total Square Cm 12.50 10.71 -Wound/Ulcer Outcome Not Healed Not Healed -Ulcer Cleansing Rinsed/ Rinsed/ Irrigated with Irrigated with Saline Saline -Foul Odor after Cleansing No No -Bioengineered Tissue No No -Topical Lidocaine (%) 4 -Bleeding Controlled with Pressure Pressure -Treatment Response Procedure Procedure Not Tolerated Well Tolerated Well Pain Scale: 0-10 Numeric Is Patient Pain Free? Yes Yes Wound debrided: below knee amputation stump site Laterality: Right Wound Grade/Stage: grade 1 Type of Debridement: Excisional debridement Anesthesia Used: 4% Lidocaine Solution Depth: in the subcutaneous layer Percentage of wound debrided: 100 Instrument Used: #15 blade Tissue Removed: fibrous, devitalilzed subcutaneous, biofilm, slough Severity: Fat Layer Exposed Amount of bleeding with debridement: Mild Bleeding Controlled with: Pressure Patient tolerated procedure well - Additional Wound Wound debrided: sub metatarsal head Laterality: Left Wound Grade/Stage: grade 1 Type of Debridement: Excisional debridement Anesthesia Used: 4% Lidocaine Solution Depth: in the subcutaneous layer Percentage of wound debrided: 100 Instrument Used: #15 blade Tissue Removed: fibrous, devitalilzed subcutaneous, biofilm, slough Severity: Fat Layer Exposed Amount of bleeding with debridement: Mild Bleeding Controlled with: Pressure Patient tolerated procedure: Patient tolerated procedure well Assessment/Plan Assessment: Right leg ulcer with fat layer exposed. Left foot ulcer with fat layer exposed. Right below-knee amputation with medial dehiscence and resolved cellulitis. Left Hammer digit syndrome. Peripheral vascular disease status post stenting to the popliteal artery on the right lower extremity. Diabetes with peripheral neuropathy. Malnutrition. Delayed healing. History of drug abuse. Smoker Plan: I reviewed and discussed his plan today. Debridement was performed as noted in the clinical panel. I recommended continued Santyl application daily with gauze dressing. I recommend decreasing edema to the right lower extremity with standard sound engineer audio control application. He does not have apparent left lower extremity edema. He has known peripheral vascular disease with right popliteal stenting performed by vascular surgeon, Dr. Cristina. 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 To optimize healing by drinking two Fracisco supplements daily at his long-term facility. To keep weight off of his left foot by heel weightbearing in a CAM walker; this order was placed today. To continue to work with physical therapy at the long-term facility. This was previously provided. Additional offloading felt pad was applied. I will continue to monitor him with serial foot x-rays and labs. He was reassured there are no clinical signs of infection noted today. I recommend he follows up in 1 week or call sooner if he has any questions or concerns. To DC smoking to also optimize healing.
[2017-05-17 13:05] VITALS: BP 104/68; PULSE 92; RESP 16; TEMP 36.6; BMI 56.7
--- NOTE | 2017-05-17 14:21 | PCM.WC.PN ---
(1) Chronic ulcer of left foot with fat layer exposed Status: Chronic Current Visit: Yes Code(s): L97.522 - Non-pressure chronic ulcer of other part of left foot with fat layer exposed (2) Ulcer of right lower extremity with fat layer exposed Status: Chronic Current Visit: Yes Code(s): L97.912 - Non-pressure chronic ulcer of unspecified part of right lower leg with fat layer exposed (3) Type 2 diabetes mellitus with diabetic polyneuropathy Status: Chronic Current Visit: Yes Code(s): E11.42 - Type 2 diabetes mellitus with diabetic polyneuropathy (4) History of right below knee amputation Status: Chronic Current Visit: Yes Code(s): Z89.511 - Acquired absence of right leg below knee Type of Wound Date of Service: 05/17/17 Chief Complaint: right leg ulcer. left foot ulcer History of Wound: This 52-year-old male with diabetes and peripheral vascular disease presents the wound care center for chronic right leg ulcer and his previous below-knee amputation stump site. He wears a cam walker boot with offloading Plastizote to the left foot. He resides at a [facility]. He denies fever, chill, nausea, vomiting. Progress of Wound: Improving - Physical Exam Vital Signs Temp Pulse Resp BP 97.8 F 92 16 104/68 05/17/17 13:05 05/17/17 13:05 05/17/17 13:05 05/17/17 13:05 General: Alert, Oriented x3, Cooperative Extremities: No cyanosis, Capillary Refill Less than 3 Seconds, No Calf Tenderness - Negative Germán and Cobian left, Diminished Peripheral Pulses, Edema, - - Right below-knee amputation with decreased stump swelling Skin: Ulcer/ Wound - No purulence, no erythema, no streaking, no odor, no infection. There is decreased eschar and fibrous tissue to the right leg stump site., - - Atrophic skin Wound Measurements and Assessment WC - Nurse 1 - General Ulcer Measurement Start: 05/03/17 09:54 Freq: Status: Active Protocol: Activity Type Activity Date Activity User E-Sign Co-Sign Detail Recorded Client Recorded Date Recorded By Document 05/17/17 13:05 [facility] [id number] 05/17/17 13:18 [facility] 05/17/17 13:05 Wound Center Nurse 1 [Ulcer Assessment] #2 L Plantar -Combined with other wound No -Current Size (cm) - Length 0.4 -Current Size (cm) - Width 0.2 -Current Size (cm) - Depth 0.2 -Total Square Cm 0.08 -Date of Last Picture (Recall this 05/17/17 field) -Photo Taken Yes -Epithelialization None Present -Tunneling No -Undermining/Tunneling No -Exudate Amt Small (1-33%) -Exudate Type Serous -Wound Margin Distinct, Outline Attached -Granulation Amt Large (67-100%) -Granulation Quality [place] -Slough/Fibrin No -Necrosis Amt None Present (0 %) -Structure Exposed N/A -Texture (Elena-wound Skin Appearance) Callus -Moisture (Elena-wound Skin Appearance Dry/Scaly ) -Color (Elena-wound Skin Appearance) Assessed -Temperature (Elena-wound Skin No Abnormality Appearance) (Pt Warm) -Tenderness on Palpation (Elena-wound No Skin Appearance) -Ulcer Cleansing Wound Cleanser -Foul Odor after Cleansing No -Anesthetic Used 4% Lidocaine Solution #1 R BKA Stump -Combined with other wound No -Current Size (cm) - Length 1.5 -Current Size (cm) - Width 4 -Current Size (cm) - Depth 0.1 -Total Square Cm 6.0 -Date of Last Picture (Recall this 05/17/17 field) -Photo Taken Yes -Epithelialization Small 1-33% -Tunneling No -Undermining/Tunneling No -Exudate Amt Small (1-33%) -Exudate Type Serous -Wound Margin Distinct, Outline Attached -Granulation Amt Medium (34-66%) -Granulation Quality Red -Slough/Fibrin Yes -Necrosis Amt Medium (34-66%) -Necrotic Tissue Type Adherent Slough -Structure Exposed N/A -Texture (Elena-wound Skin Appearance) Scarring -Moisture (Elena-wound Skin Appearance Dry/Scaly ) -Color (Elena-wound Skin Appearance) Erythema -Temperature (Elena-wound Skin No Abnormality Appearance) (Pt Warm) -Tenderness on Palpation (Elena-wound Yes Skin Appearance) -Ulcer Cleansing Wound Cleanser -Foul Odor after Cleansing No -Anesthetic Used 4% Lidocaine Solution [Edema Assessment] -Right Calf (cm) 34.6 WC - Nurse 2 - General Ulcer CM Notes Start: 02/07/18 09:54 Freq: Status: Active Protocol: Activity Type Activity Date Activity User E-Sign Co-Sign Detail Recorded Client Recorded Date Recorded By Document 05/17/17 13:31 [id number] 05/17/17 13:34 05/17/17 13:31 Wound Center Nurse 2 [Procedure/Treatment] #2 L Plantar -Time 13:33 -Correct Patient Yes -Correct Side, Site, Position Yes -Correct Procedure Yes -Procedure Performed Yes -Type of Procedure Debridement -Clinical Debridement Subcutaneous -Post Debridement Size (cm) - Length 0.5 -Post Debridement Size (cm) - Width 0.3 -Post Debridement Size (cm) - Depth 0.2 -Total Square Cm 0.15 -Wound/Ulcer Outcome Not Healed -Ulcer Cleansing Rinsed/ Irrigated with Saline -Foul Odor after Cleansing No -Bioengineered Tissue No -Topical Lidocaine (%) 4 -Bleeding Controlled with Pressure -Treatment Response Procedure Tolerated Well #1 R BKA Stump -Time 13:33 -Correct Patient Yes -Correct Side, Site, Position Yes -Correct Procedure Yes -Procedure Performed Yes -Type of Procedure Debridement -Clinical Debridement Subcutaneous -Post Debridement Size (cm) - Length 1.6 -Post Debridement Size (cm) - Width 4.1 -Post Debridement Size (cm) - Depth 0.1 -Total Square Cm 6.56 -Wound/Ulcer Outcome Not Healed -Ulcer Cleansing Rinsed/ Irrigated with Saline -Foul Odor after Cleansing No -Bioengineered Tissue No -Topical Lidocaine (%) 4 -Bleeding Controlled with Pressure -Treatment Response Procedure Tolerated Well [See Physician Procedure note for Specifics] Pain Scale: 0-10 Numeric [Pain] -Is Patient Pain Free? Yes Musculoskeletal: No Tenderness to Palpation of Joints or Extremities, Muscle Wasting, - - Lesser toe contraction of prominent metatarsal head region inverted resting position of the left lower extremity with contraction of the foot in a slightly plantarflexed position noted this is reducible Neurological: - - Lack of epicritic sensation light touch left Psych/Mental Status: Normal Affect, Appropriate Debridement Note Post-Debridement Measurements/Treatment WC - Nurse 2 - General Ulcer CM Notes Start: 05/03/17 09:54 Freq: Status: Active Protocol: Activity Type Activity Date Activity User E-Sign Co-Sign Detail Recorded Client Recorded Date Recorded By Document 05/03/17 10:21 [id number] 05/03/17 10:24 TM Document 05/10/17 09:54 [id number] 05/10/17 09:55 TM Document 05/17/17 13:31 [id number] 05/17/17 13:34 05/03/17 05/10/17 05/17/17 10:21 09:54 13:31 Wound Center Nurse 2 #2 L Plantar -Time 10:21 09:54 13:33 -Correct Patient Yes Yes Yes -Correct Side, Site, Position Yes Yes Yes -Correct Procedure Yes Yes Yes -Procedure Performed Yes Yes Yes -Type of Procedure Debridement Debridement Debridement -Clinical Debridement Subcutaneous Subcutaneous Subcutaneous -Post Debridement Size (cm) - Length 0.7 0.5 0.5 -Post Debridement Size (cm) - Width 0.4 0.4 0.3 -Post Debridement Size (cm) - Depth 0.2 0.2 0.2 -Total Square Cm 0.28 0.20 0.15 -Wound/Ulcer Outcome Not Healed Not Healed Not Healed -Ulcer Cleansing Rinsed/ Rinsed/ Rinsed/ Irrigated with Irrigated with Irrigated with Saline Saline Saline -Foul Odor after Cleansing No No No -Bioengineered Tissue No No No -Topical Lidocaine (%) 4 4 -Bleeding Controlled with Pressure Pressure Pressure -Treatment Response Procedure Procedure Procedure Tolerated Well Tolerated Well Tolerated Well #1 R BKA Stump -Time 10:22 09:54 13:33 -Correct Patient Yes Yes Yes -Correct Side, Site, Position Yes Yes Yes -Correct Procedure Yes Yes Yes -Procedure Performed Yes Yes Yes -Type of Procedure Debridement Debridement Debridement -Clinical Debridement Subcutaneous Subcutaneous Subcutaneous -Post Debridement Size (cm) - Length 2.5 2.1 1.6 -Post Debridement Size (cm) - Width 5.0 5.1 4.1 -Post Debridement Size (cm) - Depth 0.1 0.2 0.1 -Total Square Cm 12.50 10.71 6.56 -Wound/Ulcer Outcome Not Healed Not Healed Not Healed -Ulcer Cleansing Rinsed/ Rinsed/ Rinsed/ Irrigated with Irrigated with Irrigated with Saline Saline Saline -Foul Odor after Cleansing No No No -Bioengineered Tissue No No No -Topical Lidocaine (%) 4 4 -Bleeding Controlled with Pressure Pressure Pressure -Treatment Response Procedure Procedure Not Procedure Tolerated Well Tolerated Well Tolerated Well Pain Scale: 0-10 Numeric Is Patient Pain Free? Yes Yes Yes Wound debrided: plantar foot Laterality: Left Wound Grade/Stage: grade 1 Type of Debridement: Excisional debridement Anesthesia Used: 4% Lidocaine Solution Depth: in the subcutaneous layer Percentage of wound debrided: 100 Instrument Used: #15 blade Tissue Removed: fibrous, devitalized subcutaneous, biofilm, slough Severity: Fat Layer Exposed Amount of bleeding with debridement: Mild Bleeding Controlled with: Pressure Patient tolerated procedure well - Additional Wound Wound debrided: leg stump site Laterality: Right Wound Grade/Stage: grade 1 Type of Debridement: Excisional debridement Anesthesia Used: 4% Lidocaine Solution Depth: in the subcutaneous layer Percentage of wound debrided: 100 Instrument Used: #15 blade Tissue Removed: fibrous, devitalized subcutaneous, biofilm, slough Severity: Fat Layer Exposed Amount of bleeding with debridement: Mild Bleeding Controlled with: Pressure Patient tolerated procedure: Patient tolerated procedure well Assessment/Plan Active Problems History of right below knee amputation (Chronic) Type 2 diabetes mellitus with diabetic polyneuropathy (Chronic) Ulcer of right lower extremity with fat layer exposed (Chronic) Chronic ulcer of left foot with fat layer exposed (Chronic) Assessment: Right leg ulcer with fat layer exposed. Left foot ulcer with fat layer exposed. Right below-knee amputation with medial dehiscence and resolved cellulitis. Left Hammer digit syndrome. Peripheral vascular disease status post stenting to the popliteal artery on the right lower extremity. Diabetes with peripheral neuropathy. Malnutrition. Delayed healing. History of drug abuse. Smoker Plan: I reviewed and discussed his plan today. Debridement was performed as noted in the clinical panel. I recommended continued Santyl application daily with gauze dressing. He has demonstrated recent improvement and I recommend transition to an advanced wound care products such as epi fix. The indication, purpose, anticipated healing and management were discussed in detail. He understands and elects to proceed at this time. Preauthorization will be initiated and he will be notified upon decision. I recommend decreasing edema to the right lower extremity with standard ticket printer application. He does not have apparent left lower extremity edema. He has known peripheral vascular disease with right popliteal stenting performed by vascular surgeon, Dr. Cristina. 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 He followed up with Dr. Cristina this morning who recommended monitoring this and he will return again in 6 months unless the wound has continued delayed healing or it worsens. To optimize healing by drinking two Fracisco supplements daily at his [facility] facility. To keep weight off of his left foot with cam walker offloading Plastizote liner to the left lower extremity. Decrease tension to the right leg wound with compression dressing applied by nursing staff at his skilled facility. To continue to work with physical therapy at the [facility] facility. This was previously provided. Additional offloading felt pad was applied. I will continue to monitor him with serial foot x-rays and labs. His labs from May 11 were reviewed with a creatinine of 0.7 albumin of 3.3 white blood cell count of 7.1 he was reassured there are no clinical signs of infection noted today. I recommend he follows up in 1 week or call sooner if he has any questions or concerns. To DC smoking to also optimize healing.
--- NOTE | 2017-05-17 14:26 | PN.PCM_ITS ---
(1) Chronic ulcer of left foot with fat layer exposed Status: Chronic Current Visit: Yes Code(s): L97.522 - Non-pressure chronic ulcer of other part of left foot with fat layer exposed (2) Ulcer of right lower extremity with fat layer exposed Status: Chronic Current Visit: Yes Code(s): L97.912 - Non-pressure chronic ulcer of unspecified part of right lower leg with fat layer exposed (3) Type 2 diabetes mellitus with diabetic polyneuropathy Status: Chronic Current Visit: Yes Code(s): E11.42 - Type 2 diabetes mellitus with diabetic polyneuropathy (4) History of right below knee amputation Status: Chronic Current Visit: Yes Code(s): Z89.511 - Acquired absence of right leg below knee Type of Wound Date of Service: 05/17/17 Chief Complaint: right leg ulcer. left foot ulcer History of Wound: This 52-year-old male with diabetes and peripheral vascular disease presents the wound care center for chronic right leg ulcer and his previous below-knee amputation stump site. He wears a cam walker boot with offloading Plastizote to the left foot. He resides at a retirement facility. He denies fever, chill, nausea, vomiting. Progress of Wound: Improving - Physical Exam Vital Signs Temp Pulse Resp BP 97.8 F 92 16 104/68 05/17/17 13:05 05/17/17 13:05 05/17/17 13:05 05/17/17 13:05 General: Alert, Oriented x3, Cooperative Extremities: No cyanosis, Capillary Refill Less than 3 Seconds, No Calf Tenderness - Negative Germán and Cobian left, Diminished Peripheral Pulses, Edema , - - Right below-knee amputation with decreased stump swelling Skin: Ulcer/ Wound - No purulence, no erythema, no streaking, no odor, no infection. There is decreased eschar and fibrous tissue to the right leg stump site., - - Atrophic skin Wound Measurements and Assessment WC - Nurse 1 - General Ulcer Measurement Start: 05/03/17 09:54 Freq: Status: Active Protocol: Activity Type Activity Date Activity User E-Sign Co-Sign Detail Recorded Client Recorded Date Recorded By Document 05/17/17 13:05 [facility] [id number] 05/17/17 13:18 [facility] 05/17/17 13:05 Wound Center Nurse 1 [Ulcer Assessment] #2 L Plantar -Combined with other wound No -Current Size (cm) - Length 0.4 -Current Size (cm) - Width 0.2 -Current Size (cm) - Depth 0.2 -Total Square Cm 0.08 -Date of Last Picture (Recall this 05/17/17 field) -Photo Taken Yes -Epithelialization None Present -Tunneling No -Undermining/Tunneling No -Exudate Amt Small (1-33%) -Exudate Type Serous -Wound Margin Distinct, Outline Attached -Granulation Amt Large (67-100%) -Granulation Quality [place] -Slough/Fibrin No -Necrosis Amt None Present (0 %) -Structure Exposed N/A -Texture (Elena-wound Skin Appearance) Callus -Moisture (Elena-wound Skin Appearance Dry/Scaly ) -Color (Elena-wound Skin Appearance) Assessed -Temperature (Elena-wound Skin No Abnormality Appearance) (Pt Warm) -Tenderness on Palpation (Elena-wound No Skin Appearance) -Ulcer Cleansing Wound Cleanser -Foul Odor after Cleansing No -Anesthetic Used 4% Lidocaine Solution #1 R BKA Stump -Combined with other wound No -Current Size (cm) - Length 1.5 -Current Size (cm) - Width 4 -Current Size (cm) - Depth 0.1 -Total Square Cm 6.0 -Date of Last Picture (Recall this 05/17/17 field) -Photo Taken Yes -Epithelialization Small 1-33% -Tunneling No -Undermining/Tunneling No -Exudate Amt Small (1-33%) -Exudate Type Serous -Wound Margin Distinct, Outline Attached -Granulation Amt Medium (34-66%) -Granulation Quality Red -Slough/Fibrin Yes -Necrosis Amt Medium (34-66%) -Necrotic Tissue Type Adherent Slough -Structure Exposed N/A -Texture (Elena-wound Skin Appearance) Scarring -Moisture (Elena-wound Skin Appearance Dry/Scaly ) -Color (Elena-wound Skin Appearance) Erythema -Temperature (Elena-wound Skin No Abnormality Appearance) (Pt Warm) -Tenderness on Palpation (Elena-wound Yes Skin Appearance) -Ulcer Cleansing Wound Cleanser -Foul Odor after Cleansing No -Anesthetic Used 4% Lidocaine Solution [Edema Assessment] -Right Calf (cm) 34.6 WC - Nurse 2 - General Ulcer CM Notes Start: 02/07/18 09:54 Freq: Status: Active Protocol: Activity Type Activity Date Activity User E-Sign Co-Sign Detail Recorded Client Recorded Date Recorded By Document 05/17/17 13:31 [id number] 05/17/17 13:34 05/17/17 13:31 Wound Center Nurse 2 [Procedure/Treatment] #2 L Plantar -Time 13:33 -Correct Patient Yes -Correct Side, Site, Position Yes -Correct Procedure Yes -Procedure Performed Yes -Type of Procedure Debridement -Clinical Debridement Subcutaneous -Post Debridement Size (cm) - Length 0.5 -Post Debridement Size (cm) - Width 0.3 -Post Debridement Size (cm) - Depth 0.2 -Total Square Cm 0.15 -Wound/Ulcer Outcome Not Healed -Ulcer Cleansing Rinsed/ Irrigated with Saline -Foul Odor after Cleansing No -Bioengineered Tissue No -Topical Lidocaine (%) 4 -Bleeding Controlled with Pressure -Treatment Response Procedure Tolerated Well #1 R BKA Stump -Time 13:33 -Correct Patient Yes -Correct Side, Site, Position Yes -Correct Procedure Yes -Procedure Performed Yes -Type of Procedure Debridement -Clinical Debridement Subcutaneous -Post Debridement Size (cm) - Length 1.6 -Post Debridement Size (cm) - Width 4.1 -Post Debridement Size (cm) - Depth 0.1 -Total Square Cm 6.56 -Wound/Ulcer Outcome Not Healed -Ulcer Cleansing Rinsed/ Irrigated with Saline -Foul Odor after Cleansing No -Bioengineered Tissue No -Topical Lidocaine (%) 4 -Bleeding Controlled with Pressure -Treatment Response Procedure Tolerated Well [See Physician Procedure note for Specifics] Pain Scale: 0-10 Numeric [Pain] -Is Patient Pain Free? Yes Musculoskeletal: No Tenderness to Palpation of Joints or Extremities, Muscle Wasting, - - Lesser toe contraction of prominent metatarsal head region inverted resting position of the left lower extremity with contraction of the foot in a slightly plantarflexed position noted this is reducible Neurological: - - Lack of epicritic sensation light touch left Psych/Mental Status: Normal Affect, Appropriate Debridement Note Post-Debridement Measurements/Treatment WC - Nurse 2 - General Ulcer CM Notes Start: 05/03/17 09:54 Freq: Status: Active Protocol: Activity Type Activity Date Activity User E-Sign Co-Sign Detail Recorded Client Recorded Date Recorded By Document 05/03/17 10:21 [id number] 05/03/17 10:24 TM Document 05/10/17 09:54 [id number] 05/10/17 09:55 TM Document 05/17/17 13:31 [id number] 05/17/17 13:34 05/03/17 05/10/17 05/17/17 10:21 09:54 13:31 Wound Center Nurse 2 #2 L Plantar -Time 10:21 09:54 13:33 -Correct Patient Yes Yes Yes -Correct Side, Site, Position Yes Yes Yes -Correct Procedure Yes Yes Yes -Procedure Performed Yes Yes Yes -Type of Procedure Debridement Debridement Debridement -Clinical Debridement Subcutaneous Subcutaneous Subcutaneous -Post Debridement Size (cm) - Length 0.7 0.5 0.5 -Post Debridement Size (cm) - Width 0.4 0.4 0.3 -Post Debridement Size (cm) - Depth 0.2 0.2 0.2 -Total Square Cm 0.28 0.20 0.15 -Wound/Ulcer Outcome Not Healed Not Healed Not Healed -Ulcer Cleansing Rinsed/ Rinsed/ Rinsed/ Irrigated with Irrigated with Irrigated with Saline Saline Saline -Foul Odor after Cleansing No No No -Bioengineered Tissue No No No -Topical Lidocaine (%) 4 4 -Bleeding Controlled with Pressure Pressure Pressure -Treatment Response Procedure Procedure Procedure Tolerated Well Tolerated Well Tolerated Well #1 R BKA Stump -Time 10:22 09:54 13:33 -Correct Patient Yes Yes Yes -Correct Side, Site, Position Yes Yes Yes -Correct Procedure Yes Yes Yes -Procedure Performed Yes Yes Yes -Type of Procedure Debridement Debridement Debridement -Clinical Debridement Subcutaneous Subcutaneous Subcutaneous -Post Debridement Size (cm) - Length 2.5 2.1 1.6 -Post Debridement Size (cm) - Width 5.0 5.1 4.1 -Post Debridement Size (cm) - Depth 0.1 0.2 0.1 -Total Square Cm 12.50 10.71 6.56 -Wound/Ulcer Outcome Not Healed Not Healed Not Healed -Ulcer Cleansing Rinsed/ Rinsed/ Rinsed/ Irrigated with Irrigated with Irrigated with Saline Saline Saline -Foul Odor after Cleansing No No No -Bioengineered Tissue No No No -Topical Lidocaine (%) 4 4 -Bleeding Controlled with Pressure Pressure Pressure -Treatment Response Procedure Procedure Not Procedure Tolerated Well Tolerated Well Tolerated Well Pain Scale: 0-10 Numeric Is Patient Pain Free? Yes Yes Yes Wound debrided: plantar foot Laterality: Left Wound Grade/Stage: grade 1 Type of Debridement: Excisional debridement Anesthesia Used: 4% Lidocaine Solution Depth: in the subcutaneous layer Percentage of wound debrided: 100 Instrument Used: #15 blade Tissue Removed: fibrous, devitalized subcutaneous, biofilm, slough Severity: Fat Layer Exposed Amount of bleeding with debridement: Mild Bleeding Controlled with: Pressure Patient tolerated procedure well - Additional Wound Wound debrided: leg stump site Laterality: Right Wound Grade/Stage: grade 1 Type of Debridement: Excisional debridement Anesthesia Used: 4% Lidocaine Solution Depth: in the subcutaneous layer Percentage of wound debrided: 100 Instrument Used: #15 blade Tissue Removed: fibrous, devitalized subcutaneous, biofilm, slough Severity: Fat Layer Exposed Amount of bleeding with debridement: Mild Bleeding Controlled with: Pressure Patient tolerated procedure: Patient tolerated procedure well Assessment/Plan Active Problems History of right below knee amputation (Chronic) Type 2 diabetes mellitus with diabetic polyneuropathy (Chronic) Ulcer of right lower extremity with fat layer exposed (Chronic) Chronic ulcer of left foot with fat layer exposed (Chronic) Assessment: Right leg ulcer with fat layer exposed. Left foot ulcer with fat layer exposed. Right below-knee amputation with medial dehiscence and resolved cellulitis. Left Hammer digit syndrome. Peripheral vascular disease status post stenting to the popliteal artery on the right lower extremity. Diabetes with peripheral neuropathy. Malnutrition. Delayed healing. History of drug abuse. Smoker Plan: I reviewed and discussed his plan today. Debridement was performed as noted in the clinical panel. I recommended continued Santyl application daily with gauze dressing. He has demonstrated recent improvement and I recommend transition to an advanced wound care products such as epi fix. The indication, purpose, anticipated healing and management were discussed in detail. He understands and elects to proceed at this time. Preauthorization will be initiated and he will be notified upon decision. I recommend decreasing edema to the right lower extremity with standard solvent station attendant application. He does not have apparent left lower extremity edema. He has known peripheral vascular disease with right popliteal stenting performed by vascular surgeon, Dr. Cristina. 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 He followed up with Dr. Cristina this morning who recommended monitoring this and he will return again in 6 months unless the wound has continued delayed healing or it worsens. To optimize healing by drinking two Fracisco supplements daily at his retirement facility. To keep weight off of his left foot with cam walker offloading Plastizote liner to the left lower extremity. Decrease tension to the right leg wound with compression dressing applied by nursing staff at his skilled facility. To continue to work with physical therapy at the retirement facility. This was previously provided. Additional offloading felt pad was applied. I will continue to monitor him with serial foot x-rays and labs. His labs from May 11 were reviewed with a creatinine of 0.7 albumin of 3.3 white blood cell count of 7.1 he was reassured there are no clinical signs of infection noted today. I recommend he follows up in 1 week or call sooner if he has any questions or concerns. To DC smoking to also optimize healing.
[2017-05-24 13:13] VITALS: BP 133/65; PULSE 85; RESP 16; TEMP 37; BMI 56.7
--- NOTE | 2017-05-24 16:14 | PN.PCM_ITS ---
(1) Chronic ulcer of left foot with fat layer exposed Status: Chronic Code(s): L97.522 - Non-pressure chronic ulcer of other part of left foot with fat layer exposed (2) Ulcer of right lower extremity with fat layer exposed Status: Chronic Code(s): L97.912 - Non-pressure chronic ulcer of unspecified part of right lower leg with fat layer exposed (3) Type 2 diabetes mellitus with diabetic polyneuropathy Status: Chronic Code(s): E11.42 - Type 2 diabetes mellitus with diabetic polyneuropathy (4) History of right below knee amputation Status: Chronic Code(s): Z89.511 - Acquired absence of right leg below knee Type of Wound Date of Service: 05/25/17 Chief Complaint: right leg ulcer. left foot ulcer History of Wound: This 52-year-old male with diabetes and peripheral vascular disease presents the wound care center for chronic right leg ulcer and his previous below-knee amputation stump site. He wears a cam walker boot with offloading Plastizote to the left foot. He resides at a intermediate facility. He denies fever, chill, nausea, vomiting. Progress of Wound: Improving - Physical Exam Vital Signs Temp Pulse Resp BP 98.6 F 85 16 133/65 H 05/24/17 13:13 05/24/17 13:13 05/24/17 13:13 05/24/17 13:13 General: Alert, Oriented x3, Cooperative Extremities: No cyanosis, Capillary Refill Less than 3 Seconds, No Calf Tenderness, Diminished Peripheral Pulses, Edema - Mild bilateral lower extremity Skin: Ulcer/ Wound - No purulence, no erythema, no streaking, no odor no exposed deep tissue bilateral, - - Right below-knee stump amputation noted Wound Measurements and Assessment WC - Nurse 1 - General Ulcer Measurement Start: 05/03/17 09:54 Freq: Status: Active Protocol: Activity Type Activity Date Activity User E-Sign Co-Sign Detail Recorded Client Recorded Date Recorded By Document 05/24/17 13:13 [facility] [id number] 05/24/17 13:27 [facility] 05/24/17 13:13 Wound Center Nurse 1 [Ulcer Assessment] #2 L Plantar -Combined with other wound No -Current Size (cm) - Length 0.1 -Current Size (cm) - Width 0.1 -Current Size (cm) - Depth 0.1 -Total Square Cm 0.01 -Photo Taken No -Epithelialization Large 67-100% -Tunneling No -Undermining/Tunneling No -Exudate Amt None Present (0 %) -Texture (Elena-wound Skin Appearance) Assessed -Moisture (Elena-wound Skin Appearance Maceration ) -Color (Elena-wound Skin Appearance) Palor -Temperature (Elena-wound Skin No Abnormality Appearance) (Pt Warm) -Tenderness on Palpation (Elena-wound No Skin Appearance) -Ulcer Cleansing Wound Cleanser -Foul Odor after Cleansing No -Anesthetic Used 4% Lidocaine Solution #1 R BKA Stump -Combined with other wound No -Current Size (cm) - Length 1.4 -Current Size (cm) - Width 4.4 -Current Size (cm) - Depth 0.1 -Total Square Cm 6.16 -Photo Taken No -Epithelialization Small 1-33% -Tunneling No -Undermining/Tunneling No -Exudate Amt Small (1-33%) -Exudate Type Serosanguineous -Wound Margin Distinct, Outline Attached -Granulation Amt Medium (34-66%) -Granulation Quality Red -Slough/Fibrin Yes -Necrosis Amt Medium (34-66%) -Necrotic Tissue Type Adherent Slough -Structure Exposed None/Limited to Skin Breakdown -Texture (Elena-wound Skin Appearance) Scarring -Moisture (Elena-wound Skin Appearance Assessed ) -Color (Elena-wound Skin Appearance) Erythema -Temperature (Elena-wound Skin No Abnormality Appearance) (Pt Warm) -Tenderness on Palpation (Elena-wound Yes Skin Appearance) -Anesthetic Used 4% Lidocaine Solution WC - Nurse 2 - General Ulcer CM Notes Start: 05/03/17 09:54 Freq: Status: Active Protocol: Activity Type Activity Date Activity User E-Sign Co-Sign Detail Recorded Client Recorded Date Recorded By Document 05/24/17 13:43 ALONDRA [id number] 05/24/17 13:45 ALONDRA 05/24/17 13:43 Wound Center Nurse 2 [Procedure/Treatment] #2 L Plantar -Time 13:43 -Correct Patient Yes -Correct Side, Site, Position Yes -Correct Procedure Yes -Procedure Performed Yes -Type of Procedure Debridement -Clinical Debridement Subcutaneous -Post Debridement Size (cm) - Length 0.3 -Post Debridement Size (cm) - Width 0.2 -Post Debridement Size (cm) - Depth 0.1 -Total Square Cm 0.06 -Wound/Ulcer Outcome Not Healed -Ulcer Cleansing Rinsed/ Irrigated with Saline -Foul Odor after Cleansing No -Bioengineered Tissue Yes -Type of bioengineered Tissue EPIFIX -Expiration Date 11/25/21 -Product Lot Number [id number] -Percent Used 100 -Saline Lot Number [id number] -Bleeding Controlled with Pressure -Treatment Response Procedure Tolerated Well #1 R BKA Stump -Time 13:44 -Correct Patient Yes -Correct Side, Site, Position Yes -Correct Procedure Yes -Procedure Performed Yes -Type of Procedure Debridement -Clinical Debridement Subcutaneous -Post Debridement Size (cm) - Length 1.5 -Post Debridement Size (cm) - Width 4.5 -Post Debridement Size (cm) - Depth 0.1 -Total Square Cm 6.75 -Wound/Ulcer Outcome Not Healed -Ulcer Cleansing Rinsed/ Irrigated with Saline -Foul Odor after Cleansing No -Bioengineered Tissue Yes -Type of bioengineered Tissue EPIFIX -Expiration Date 11/25/21 -Product Lot Number [id number] -Percent Used 100 -Saline Lot Number [id number] -Bleeding Controlled with Pressure -Treatment Response Procedure Tolerated Well [See Physician Procedure note for Specifics] Pain Scale: 0-10 Numeric [Pain] -Is Patient Pain Free? Yes Musculoskeletal: No Tenderness to Palpation of Joints or Extremities, Muscle Wasting Neurological: - - Lack of epicritic sensation light touch bilateral lower extremities Psych/Mental Status: Normal Affect, Appropriate Debridement Note Post-Debridement Measurements/Treatment WC - Nurse 2 - General Ulcer CM Notes Start: 05/03/17 09:54 Freq: Status: Active Protocol: Activity Type Activity Date Activity User E-Sign Co-Sign Detail Recorded Client Recorded Date Recorded By Document 05/03/17 10:21 TM [id number] 05/03/17 10:24 TM Document 05/10/17 09:54 TM [id number] 05/10/17 09:55 TM Document 05/17/17 13:31 TM [id number] 05/17/17 13:34 TM Document 05/24/17 13:43 [id number] 05/24/17 13:45 05/03/17 05/10/17 05/17/17 10:21 09:54 13:31 Wound Center Nurse 2 #2 L Plantar -Time 10:21 09:54 13:33 -Correct Patient Yes Yes Yes -Correct Side, Site, Position Yes Yes Yes -Correct Procedure Yes Yes Yes -Procedure Performed Yes Yes Yes -Type of Procedure Debridement Debridement Debridement -Clinical Debridement Subcutaneous Subcutaneous Subcutaneous -Post Debridement Size (cm) - Length 0.7 0.5 0.5 -Post Debridement Size (cm) - Width 0.4 0.4 0.3 -Post Debridement Size (cm) - Depth 0.2 0.2 0.2 -Total Square Cm 0.28 0.20 0.15 -Wound/Ulcer Outcome Not Healed Not Healed Not Healed -Ulcer Cleansing Rinsed/ Rinsed/ Rinsed/ Irrigated with Irrigated with Irrigated with Saline Saline Saline -Foul Odor after Cleansing No No No -Bioengineered Tissue No No No -Type of bioengineered Tissue -Expiration Date -Product Lot Number -Percent Used -Saline Lot Number -Topical Lidocaine (%) 4 4 -Bleeding Controlled with Pressure Pressure Pressure -Treatment Response Procedure Procedure Procedure Tolerated Well Tolerated Well Tolerated Well #1 R BKA Stump -Time 10:22 09:54 13:33 -Correct Patient Yes Yes Yes -Correct Side, Site, Position Yes Yes Yes -Correct Procedure Yes Yes Yes -Procedure Performed Yes Yes Yes -Type of Procedure Debridement Debridement Debridement -Clinical Debridement Subcutaneous Subcutaneous Subcutaneous -Post Debridement Size (cm) - Length 2.5 2.1 1.6 -Post Debridement Size (cm) - Width 5.0 5.1 4.1 -Post Debridement Size (cm) - Depth 0.1 0.2 0.1 -Total Square Cm 12.50 10.71 6.56 -Wound/Ulcer Outcome Not Healed Not Healed Not Healed -Ulcer Cleansing Rinsed/ Rinsed/ Rinsed/ Irrigated with Irrigated with Irrigated with Saline Saline Saline -Foul Odor after Cleansing No No No -Bioengineered Tissue No No No -Type of bioengineered Tissue -Expiration Date -Product Lot Number -Percent Used -Saline Lot Number -Topical Lidocaine (%) 4 4 -Bleeding Controlled with Pressure Pressure Pressure -Treatment Response Procedure Procedure Not Procedure Tolerated Well Tolerated Well Tolerated Well Pain Scale: 0-10 Numeric Is Patient Pain Free? Yes Yes Yes 05/24/17 13:43 Wound Center Nurse 2 #2 L Plantar -Time 13:43 -Correct Patient Yes -Correct Side, Site, Position Yes -Correct Procedure Yes -Procedure Performed Yes -Type of Procedure Debridement -Clinical Debridement Subcutaneous -Post Debridement Size (cm) - Length 0.3 -Post Debridement Size (cm) - Width 0.2 -Post Debridement Size (cm) - Depth 0.1 -Total Square Cm 0.06 -Wound/Ulcer Outcome Not Healed -Ulcer Cleansing Rinsed/ Irrigated with Saline -Foul Odor after Cleansing No -Bioengineered Tissue Yes -Type of bioengineered Tissue EPIFIX -Expiration Date 11/25/21 -Product Lot Number [id number] -Percent Used 100 -Saline Lot Number [id number] -Topical Lidocaine (%) -Bleeding Controlled with Pressure -Treatment Response Procedure Tolerated Well #1 R BKA Stump -Time 13:44 -Correct Patient Yes -Correct Side, Site, Position Yes -Correct Procedure Yes -Procedure Performed Yes -Type of Procedure Debridement -Clinical Debridement Subcutaneous -Post Debridement Size (cm) - Length 1.5 -Post Debridement Size (cm) - Width 4.5 -Post Debridement Size (cm) - Depth 0.1 -Total Square Cm 6.75 -Wound/Ulcer Outcome Not Healed -Ulcer Cleansing Rinsed/ Irrigated with Saline -Foul Odor after Cleansing No -Bioengineered Tissue Yes -Type of bioengineered Tissue EPIFIX -Expiration Date 11/25/21 -Product Lot Number [id number] -Percent Used 100 -Saline Lot Number [id number] -Topical Lidocaine (%) -Bleeding Controlled with Pressure -Treatment Response Procedure Tolerated Well Pain Scale: 0-10 Numeric Is Patient Pain Free? Yes Wound debrided: leg stump Laterality: Right Wound Grade/Stage: grade 1 Type of Debridement: Excisional debridement Anesthesia Used: 4% Lidocaine Solution Depth: in the subcutaneous layer Percentage of wound debrided: 100 Instrument Used: #15 blade Tissue Removed: Wound was evaluated and debrided today as noted in the clinical panel. Her Severity: Fat Layer Exposed Amount of bleeding with debridement: Mild Bleeding Controlled with: Pressure Patient tolerated procedure well - Additional Wound Wound debrided: plantar foot Laterality: Left Wound Grade/Stage: grade 1 Type of Debridement: Excisional debridement Anesthesia Used: 4% Lidocaine Solution Depth: in the subcutaneous layer Percentage of wound debrided: 100 Instrument Used: #15 blade Tissue Removed: Wound was evaluated and debrided today as noted in the clinical panel. Her Severity: Fat Layer Exposed Amount of bleeding with debridement: Mild Bleeding Controlled with: Pressure Patient tolerated procedure: Patient tolerated procedure well Assessment/Plan Assessment: Right leg ulcer with fat layer exposed. Left foot ulcer with fat layer exposed. Right below-knee amputation with medial dehiscence and resolved cellulitis. Left Hammer digit syndrome. Peripheral vascular disease status post stenting to the popliteal artery on the right lower extremity. Diabetes with peripheral neuropathy. Malnutrition. Delayed healing. History of drug abuse. Smoker Plan: I reviewed and discussed his plan today. Debridement was performed as noted in the clinical panel. He has progressed well and I recommended advanced wound care product application, epi fix. The indications and purpose of this was explained and verbal consent was obtained. This was applied according to standard protocol and further secured in place with Steri-Strips and wound veil to the right and the left lower extremity ulcers. He tolerated this well. He was advised to keep this clean, dry, and intact until follow-up visit next week. I recommend decreasing edema to the right lower extremity with standard insurance verification rep application. He does not have apparent left lower extremity edema. He has known peripheral vascular disease with right popliteal stenting performed by vascular surgeon, Dr. Cristina. 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 He followed up with Dr. Cristina this morning who recommended monitoring this and he will return again in 6 months unless the wound has continued delayed healing or it worsens. To optimize healing by drinking two Fracisco supplements daily at his intermediate facility. To keep weight off of his left foot with cam walker offloading Plastizote liner to the left lower extremity. Decrease tension to the right leg wound with compression dressing applied by nursing staff at his skilled facility. To continue to work with physical therapy at the intermediate facility. This was previously provided. Additional offloading felt pad was applied. I will continue to monitor him with serial foot x-rays and labs. His labs from May 11 were reviewed with a creatinine of 0.7 albumin of 3.3 white blood cell count of 7.1 he was reassured there are no clinical signs of infection noted today. I recommend he follows up in 1 week or call sooner if he has any questions or concerns. To DC smoking to also optimize healing.
== END 2017-05-24 23:59 ==
LOC: WC 13:30
PROVIDERS: Visit Provider Podiatrist
DX: E11.621 Type 2 diabetes mellitus with foot ulcer (principal); Z89.511 Acquired absence of right leg below knee; L97.522 Non-pressure chronic ulcer of other part of left foot with fat layer exposed; E11.42 Type 2 diabetes mellitus with diabetic polyneuropathy; L97.912 Non-pressure chronic ulcer of unspecified part of right lower leg with fat layer exposed; E11.622 Type 2 diabetes mellitus with other skin ulcer; E11.51 Type 2 diabetes mellitus with diabetic peripheral angiopathy without gangrene; F17.200 Nicotine dependence, unspecified, uncomplicated
CPT/HCPCS: 11042; 15271; 15275; 97602; Q4131

== ENCOUNTER 2017-06-21 15:00 | Outpatient (RCR) | payer MEDICAID, SELFPAY ==
[2017-05-25 00:50] VITALS: BP 121/84; PULSE 85; RESP 16; TEMP 37; BMI 56.7
[2017-05-31 14:31] VITALS: BP 144/83; PULSE 81; RESP 16; TEMP 37.2; BMI 56.7
--- NOTE | 2017-05-31 15:07 | PCM.WC.PN ---
(1) Hammer toe of right foot Status: Chronic Current Visit: Yes Code(s): M20.41 - Other hammer toe(s) (acquired), right foot (2) History of right below knee amputation Status: Chronic Current Visit: Yes Code(s): Z89.511 - Acquired absence of right leg below knee (3) Type 2 diabetes mellitus with diabetic polyneuropathy Status: Chronic Current Visit: Yes Code(s): E11.42 - Type 2 diabetes mellitus with diabetic polyneuropathy (4) Ulcer of right lower extremity with fat layer exposed Status: Chronic Current Visit: Yes Code(s): L97.912 - Non-pressure chronic ulcer of unspecified part of right lower leg with fat layer exposed (5) Chronic ulcer of left foot with fat layer exposed Status: Chronic Current Visit: Yes Code(s): L97.522 - Non-pressure chronic ulcer of other part of left foot with fat layer exposed Type of Wound Date of Service: 05/31/17 Chief Complaint: right leg ulcer. left foot ulcer History of Wound: This 52-year-old male with diabetes and peripheral vascular disease presents the wound care center for chronic right leg ulcer and his previous below-knee amputation stump site. He wears a cam walker boot with offloading Plastizote to the left foot. He resides at a half-way facility. He denies fever, chill, nausea, vomiting. He had his first epi fix applied last week and did well. He did fall in a puddle and his nurse had to change the outer dressing; this is reviewed with me via phone. Progress of Wound: Improving - Physical Exam Vital Signs Temp Pulse Resp BP 98.9 F 81 16 144/83 H 05/31/17 14:31 05/31/17 14:31 05/31/17 14:31 05/31/17 14:31 General: Alert, Oriented x3, Cooperative Extremities: No cyanosis, Capillary Refill Less than 3 Seconds - Left foot, No Calf Tenderness - Negative Germán and Cobian left, Diminished Peripheral Pulses, Edema Skin: Ulcer/ Wound - No purulence, no erythema, no streaking, no infection. There is no exposed capsular bone bilateral. The adjacent skin is atrophic and without hair bilateral Wound Measurements and Assessment WC - Nurse 1 - General Ulcer Measurement Start: 05/31/17 14:31 Freq: Status: Active Protocol: Activity Type Activity Date Activity User E-Sign Co-Sign Detail Recorded Client Recorded Date Recorded By Document 05/31/17 14:31 ALONDRA [id number] 05/31/17 14:41 ALONDRA 05/31/17 14:31 Wound Center Nurse 1 [Ulcer Assessment] #2 L Plantar -Combined with other wound No -Current Size (cm) - Length 0.2 -Current Size (cm) - Width 0.2 -Current Size (cm) - Depth 0.3 -Total Square Cm 0.04 -Photo Taken Yes -Epithelialization Small 1-33% -Tunneling No -Undermining/Tunneling No -Circular Undermining No -Exudate Amt Small (1-33%) -Exudate Type Serosanguineous -Wound Margin Flat & Intact -Granulation Amt Small (1-33%) -Granulation Quality Pale -Slough/Fibrin Yes -Necrosis Amt Small (1-33%) -Necrotic Tissue Type Adherent Slough -Structure Exposed N/A -Texture (Elena-wound Skin Appearance) Assessed Callus -Moisture (Elena-wound Skin Appearance Assessed ) Dry/Scaly -Color (Elena-wound Skin Appearance) Assessed -Temperature (Elena-wound Skin No Abnormality Appearance) (Pt Warm) -Tenderness on Palpation (Elena-wound No Skin Appearance) -Ulcer Cleansing Rinsed/ Irrigated with Saline -Foul Odor after Cleansing No -Anesthetic Used 4% Lidocaine Solution #1 R BKA Stump -Combined with other wound No -Current Size (cm) - Length 1.3 -Current Size (cm) - Width 3.8 -Current Size (cm) - Depth 0.2 -Total Square Cm 4.94 -Photo Taken Yes -Epithelialization Small 1-33% -Tunneling No -Undermining/Tunneling No -Circular Undermining No -Exudate Amt Medium (34-66%) -Exudate Type Serosanguineous -Wound Margin Flat & Intact -Granulation Amt Medium (34-66%) -Granulation Quality Red -Slough/Fibrin Yes -Necrosis Amt Medium (34-66%) -Necrotic Tissue Type Adherent Slough -Structure Exposed N/A -Texture (Elena-wound Skin Appearance) Assessed Localized Edema -Moisture (Elena-wound Skin Appearance Assessed ) Dry/Scaly -Color (Elena-wound Skin Appearance) Assessed -Temperature (Elena-wound Skin No Abnormality Appearance) (Pt Warm) -Tenderness on Palpation (Elena-wound No Skin Appearance) -Ulcer Cleansing Rinsed/ Irrigated with Saline -Foul Odor after Cleansing No -Anesthetic Used 4% Lidocaine Solution [Edema Assessment] -Lower Limb Edema Present Yes -Left Calf (cm) 35.0 -Left Ankle (cm) 22.0 WC - Nurse 2 - General Ulcer CM Notes Start: 05/31/17 14:31 Freq: Status: Active Protocol: Activity Type Activity Date Activity User E-Sign Co-Sign Detail Recorded Client Recorded Date Recorded By Document 05/31/17 14:50 [id number] 05/31/17 14:53 05/31/17 14:50 Wound Center Nurse 2 [Procedure/Treatment] #2 L Plantar -Time 14:51 -Correct Patient Yes -Correct Side, Site, Position Yes -Correct Procedure Yes -Procedure Performed Yes -Type of Procedure Debridement -Clinical Debridement Subcutaneous -Post Debridement Size (cm) - Length 1.0 -Post Debridement Size (cm) - Width 0.5 -Post Debridement Size (cm) - Depth 0.2 -Total Square Cm 0.50 -Wound/Ulcer Outcome Not Healed -Ulcer Cleansing Rinsed/ Irrigated with Saline -Foul Odor after Cleansing No -Bioengineered Tissue Yes -Type of bioengineered Tissue EPIFIX -Expiration Date 02/24/22 -Product Lot Number [id number] -Percent Used 100 -Saline Lot Number [id number] -Bleeding Controlled with Pressure -Treatment Response Procedure Tolerated Well #1 R BKA Stump -Time 14:52 -Correct Patient Yes -Correct Side, Site, Position Yes -Correct Procedure Yes -Procedure Performed Yes -Type of Procedure Debridement -Clinical Debridement Subcutaneous -Post Debridement Size (cm) - Length 1.4 -Post Debridement Size (cm) - Width 3.8 -Post Debridement Size (cm) - Depth 0.2 -Total Square Cm 5.32 -Wound/Ulcer Outcome Not Healed -Ulcer Cleansing Rinsed/ Irrigated with Saline -Foul Odor after Cleansing No -Bioengineered Tissue Yes -Type of bioengineered Tissue EPIFIX -Expiration Date 02/25/22 -Product Lot Number [id number] -Percent Used 100 -Saline Lot Number [id number] -Bleeding Controlled with Pressure -Treatment Response Procedure Tolerated Well [See Physician Procedure note for Specifics] Pain Scale: 0-10 Numeric [Pain] -Is Patient Pain Free? Yes Musculoskeletal: No Tenderness to Palpation of Joints or Extremities, Muscle Wasting, - - Right below-knee amputation noted. Dorsal contraction of lesser toes of the left foot consistent with hammertoe deformity and prominent metatarsal head region Neurological: - - Lack of epicritic sensation light touch left foot Psych/Mental Status: Normal Affect, Appropriate Debridement Note Post-Debridement Measurements/Treatment WC - Nurse 2 - General Ulcer CM Notes Start: 05/31/17 14:31 Freq: Status: Active Protocol: Activity Type Activity Date Activity User E-Sign Co-Sign Detail Recorded Client Recorded Date Recorded By Document 05/31/17 14:50 ALONDRA [id number] 05/31/17 14:53 ALONDRA 05/31/17 14:50 Wound Center Nurse 2 #2 L Plantar -Time 14:51 -Correct Patient Yes -Correct Side, Site, Position Yes -Correct Procedure Yes -Procedure Performed Yes -Type of Procedure Debridement -Clinical Debridement Subcutaneous -Post Debridement Size (cm) - Length 1.0 -Post Debridement Size (cm) - Width 0.5 -Post Debridement Size (cm) - Depth 0.2 -Total Square Cm 0.50 -Wound/Ulcer Outcome Not Healed -Ulcer Cleansing Rinsed/ Irrigated with Saline -Foul Odor after Cleansing No -Bioengineered Tissue Yes -Type of bioengineered Tissue EPIFIX -Expiration Date 02/24/22 -Product Lot Number [id number] -Percent Used 100 -Saline Lot Number [id number] -Bleeding Controlled with Pressure -Treatment Response Procedure Tolerated Well #1 R BKA Stump -Time 14:52 -Correct Patient Yes -Correct Side, Site, Position Yes -Correct Procedure Yes -Procedure Performed Yes -Type of Procedure Debridement -Clinical Debridement Subcutaneous -Post Debridement Size (cm) - Length 1.4 -Post Debridement Size (cm) - Width 3.8 -Post Debridement Size (cm) - Depth 0.2 -Total Square Cm 5.32 -Wound/Ulcer Outcome Not Healed -Ulcer Cleansing Rinsed/ Irrigated with Saline -Foul Odor after Cleansing No -Bioengineered Tissue Yes -Type of bioengineered Tissue EPIFIX -Expiration Date 02/25/22 -Product Lot Number [id number] -Percent Used 100 -Saline Lot Number [id number] -Bleeding Controlled with Pressure -Treatment Response Procedure Tolerated Well Pain Scale: 0-10 Numeric Is Patient Pain Free? Yes Wound debrided: below knee amputation stump site Laterality: Right Wound Grade/Stage: grade 1 Type of Debridement: Excisional debridement Anesthesia Used: 4% Lidocaine Solution Depth: in the subcutaneous layer Percentage of wound debrided: 100 Instrument Used: #15 blade Tissue Removed: fibrous, devitalized subcutaneous, biofilm, slough Severity: Fat Layer Exposed Amount of bleeding with debridement: Mild Bleeding Controlled with: Pressure Patient tolerated procedure well - Additional Wound Wound debrided: sub central metatarsal head region Laterality: Left Wound Grade/Stage: grade 1 Type of Debridement: Excisional debridement Anesthesia Used: 4% Lidocaine Solution Depth: in the subcutaneous layer Percentage of wound debrided: 100 Instrument Used: #15 blade Severity: Fat Layer Exposed Amount of bleeding with debridement: Mild Bleeding Controlled with: Pressure Patient tolerated procedure: Patient tolerated procedure well Assessment/Plan Active Problems Hammer toe of right foot (Chronic) History of right below knee amputation (Chronic) Type 2 diabetes mellitus with diabetic polyneuropathy (Chronic) Ulcer of right lower extremity with fat layer exposed (Chronic) Chronic ulcer of left foot with fat layer exposed (Chronic) Assessment: Right leg ulcer with fat layer exposed. Left foot ulcer with fat layer exposed. Right below-knee amputation. Left Hammer digit syndrome. Peripheral vascular disease status post stenting to the popliteal artery on the right lower extremity. Diabetes with peripheral neuropathy. Malnutrition. Delayed healing. History of drug abuse. Smoker Plan: I reviewed and discussed his plan today. Debridement was performed as noted in the clinical panel. He has demonstrated recent improvement and I recommend continued advanced wound care products such as epi fix. The indication, purpose, anticipated healing and management were discussed in detail. He understands and elects to proceed at this time. Saline irrigation and skin prep was performed. The epi fix was applied according to standard protocol and was further secured in place with a wound veil and Steri-Strips. He tolerated this well and was advised to keep this clean and intact until follow-up next week. I recommend decreasing edema to the right lower extremity with standard burlapper application. He does not have apparent left lower extremity edema. He has known peripheral vascular disease with right popliteal stenting performed by vascular surgeon, Dr. Cristina. 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 He followed up with Dr. Cristina this morning who recommended monitoring this and he will return again in 6 months unless the wound has continued delayed healing or it worsens. To optimize healing by drinking two Fracisco supplements daily at his half-way facility. To keep weight off of his left foot with cam walker offloading Plastizote liner to the left lower extremity. Decrease tension to the right leg wound with compression dressing applied by nursing staff at his skilled facility. To continue to work with physical therapy at the half-way facility. This was previously provided. Additional offloading felt pad was applied. I will continue to monitor him with serial foot x-rays and labs. His labs from May 11 were reviewed with a creatinine of 0.7 albumin of 3.3 white blood cell count of 7.1 he was reassured there are no clinical signs of infection noted today. I recommend he follows up in 1 week or call sooner if he has any questions or concerns. To DC smoking to also optimize healing.
--- NOTE | 2017-05-31 15:11 | PN.PCM_ITS ---
(1) Hammer toe of right foot Status: Chronic Current Visit: Yes Code(s): M20.41 - Other hammer toe(s) ( acquired), right foot (2) History of right below knee amputation Status: Chronic Current Visit: Yes Code(s): Z89.511 - Acquired absence of right leg below knee (3) Type 2 diabetes mellitus with diabetic polyneuropathy Status: Chronic Current Visit: Yes Code(s): E11.42 - Type 2 diabetes mellitus with diabetic polyneuropathy (4) Ulcer of right lower extremity with fat layer exposed Status: Chronic Current Visit: Yes Code(s): L97.912 - Non-pressure chronic ulcer of unspecified part of right lower leg with fat layer exposed (5) Chronic ulcer of left foot with fat layer exposed Status: Chronic Current Visit: Yes Code(s): L97.522 - Non-pressure chronic ulcer of other part of left foot with fat layer exposed Type of Wound Date of Service: 05/31/17 Chief Complaint: right leg ulcer. left foot ulcer History of Wound: This 52-year-old male with diabetes and peripheral vascular disease presents the wound care center for chronic right leg ulcer and his previous below-knee amputation stump site. He wears a cam walker boot with offloading Plastizote to the left foot. He resides at a retirement facility. He denies fever, chill, nausea, vomiting. He had his first epi fix applied last week and did well. He did fall in a puddle and his nurse had to change the outer dressing; this is reviewed with me via phone. Progress of Wound: Improving - Physical Exam Vital Signs Temp Pulse Resp BP 98.9 F 81 16 144/83 H 05/31/17 14:31 05/31/17 14:31 05/31/17 14:31 05/31/17 14:31 General: Alert, Oriented x3, Cooperative Extremities: No cyanosis, Capillary Refill Less than 3 Seconds - Left foot, No Calf Tenderness - Negative Germán and Cobian left, Diminished Peripheral Pulses, Edema Skin: Ulcer/ Wound - No purulence, no erythema, no streaking, no infection. There is no exposed capsular bone bilateral. The adjacent skin is atrophic and without hair bilateral Wound Measurements and Assessment WC - Nurse 1 - General Ulcer Measurement Start: 05/31/17 14:31 Freq: Status: Active Protocol: Activity Type Activity Date Activity User E-Sign Co-Sign Detail Recorded Client Recorded Date Recorded By Document 05/31/17 14:31 ALONDRA [id number] 05/31/17 14:41 ALONDRA 05/31/17 14:31 Wound Center Nurse 1 [Ulcer Assessment] #2 L Plantar -Combined with other wound No -Current Size (cm) - Length 0.2 -Current Size (cm) - Width 0.2 -Current Size (cm) - Depth 0.3 -Total Square Cm 0.04 -Photo Taken Yes -Epithelialization Small 1-33% -Tunneling No -Undermining/Tunneling No -Circular Undermining No -Exudate Amt Small (1-33%) -Exudate Type Serosanguineous -Wound Margin Flat & Intact -Granulation Amt Small (1-33%) -Granulation Quality Pale -Slough/Fibrin Yes -Necrosis Amt Small (1-33%) -Necrotic Tissue Type Adherent Slough -Structure Exposed N/A -Texture (Elena-wound Skin Appearance) Assessed Callus -Moisture (Elena-wound Skin Appearance Assessed ) Dry/Scaly -Color (Elena-wound Skin Appearance) Assessed -Temperature (Elena-wound Skin No Abnormality Appearance) (Pt Warm) -Tenderness on Palpation (Elena-wound No Skin Appearance) -Ulcer Cleansing Rinsed/ Irrigated with Saline -Foul Odor after Cleansing No -Anesthetic Used 4% Lidocaine Solution #1 R BKA Stump -Combined with other wound No -Current Size (cm) - Length 1.3 -Current Size (cm) - Width 3.8 -Current Size (cm) - Depth 0.2 -Total Square Cm 4.94 -Photo Taken Yes -Epithelialization Small 1-33% -Tunneling No -Undermining/Tunneling No -Circular Undermining No -Exudate Amt Medium (34-66%) -Exudate Type Serosanguineous -Wound Margin Flat & Intact -Granulation Amt Medium (34-66%) -Granulation Quality Red -Slough/Fibrin Yes -Necrosis Amt Medium (34-66%) -Necrotic Tissue Type Adherent Slough -Structure Exposed N/A -Texture (Elena-wound Skin Appearance) Assessed Localized Edema -Moisture (Elena-wound Skin Appearance Assessed ) Dry/Scaly -Color (Elena-wound Skin Appearance) Assessed -Temperature (Elena-wound Skin No Abnormality Appearance) (Pt Warm) -Tenderness on Palpation (Elena-wound No Skin Appearance) -Ulcer Cleansing Rinsed/ Irrigated with Saline -Foul Odor after Cleansing No -Anesthetic Used 4% Lidocaine Solution [Edema Assessment] -Lower Limb Edema Present Yes -Left Calf (cm) 35.0 -Left Ankle (cm) 22.0 WC - Nurse 2 - General Ulcer CM Notes Start: 05/31/17 14:31 Freq: Status: Active Protocol: Activity Type Activity Date Activity User E-Sign Co-Sign Detail Recorded Client Recorded Date Recorded By Document 05/31/17 14:50 [id number] 05/31/17 14:53 05/31/17 14:50 Wound Center Nurse 2 [Procedure/Treatment] #2 L Plantar -Time 14:51 -Correct Patient Yes -Correct Side, Site, Position Yes -Correct Procedure Yes -Procedure Performed Yes -Type of Procedure Debridement -Clinical Debridement Subcutaneous -Post Debridement Size (cm) - Length 1.0 -Post Debridement Size (cm) - Width 0.5 -Post Debridement Size (cm) - Depth 0.2 -Total Square Cm 0.50 -Wound/Ulcer Outcome Not Healed -Ulcer Cleansing Rinsed/ Irrigated with Saline -Foul Odor after Cleansing No -Bioengineered Tissue Yes -Type of bioengineered Tissue EPIFIX -Expiration Date 02/24/22 -Product Lot Number [id number] -Percent Used 100 -Saline Lot Number [id number] -Bleeding Controlled with Pressure -Treatment Response Procedure Tolerated Well #1 R BKA Stump -Time 14:52 -Correct Patient Yes -Correct Side, Site, Position Yes -Correct Procedure Yes -Procedure Performed Yes -Type of Procedure Debridement -Clinical Debridement Subcutaneous -Post Debridement Size (cm) - Length 1.4 -Post Debridement Size (cm) - Width 3.8 -Post Debridement Size (cm) - Depth 0.2 -Total Square Cm 5.32 -Wound/Ulcer Outcome Not Healed -Ulcer Cleansing Rinsed/ Irrigated with Saline -Foul Odor after Cleansing No -Bioengineered Tissue Yes -Type of bioengineered Tissue EPIFIX -Expiration Date 02/25/22 -Product Lot Number [id number] -Percent Used 100 -Saline Lot Number [id number] -Bleeding Controlled with Pressure -Treatment Response Procedure Tolerated Well [See Physician Procedure note for Specifics] Pain Scale: 0-10 Numeric [Pain] -Is Patient Pain Free? Yes Musculoskeletal: No Tenderness to Palpation of Joints or Extremities, Muscle Wasting, - - Right below-knee amputation noted. Dorsal contraction of lesser toes of the left foot consistent with hammertoe deformity and prominent metatarsal head region Neurological: - - Lack of epicritic sensation light touch left foot Psych/Mental Status: Normal Affect, Appropriate Debridement Note Post-Debridement Measurements/Treatment WC - Nurse 2 - General Ulcer CM Notes Start: 05/31/17 14:31 Freq: Status: Active Protocol: Activity Type Activity Date Activity User E-Sign Co-Sign Detail Recorded Client Recorded Date Recorded By Document 05/31/17 14:50 ALONDRA [id number] 05/31/17 14:53 ALONDRA 05/31/17 14:50 Wound Center Nurse 2 #2 L Plantar -Time 14:51 -Correct Patient Yes -Correct Side, Site, Position Yes -Correct Procedure Yes -Procedure Performed Yes -Type of Procedure Debridement -Clinical Debridement Subcutaneous -Post Debridement Size (cm) - Length 1.0 -Post Debridement Size (cm) - Width 0.5 -Post Debridement Size (cm) - Depth 0.2 -Total Square Cm 0.50 -Wound/Ulcer Outcome Not Healed -Ulcer Cleansing Rinsed/ Irrigated with Saline -Foul Odor after Cleansing No -Bioengineered Tissue Yes -Type of bioengineered Tissue EPIFIX -Expiration Date 02/24/22 -Product Lot Number [id number] -Percent Used 100 -Saline Lot Number [id number] -Bleeding Controlled with Pressure -Treatment Response Procedure Tolerated Well #1 R BKA Stump -Time 14:52 -Correct Patient Yes -Correct Side, Site, Position Yes -Correct Procedure Yes -Procedure Performed Yes -Type of Procedure Debridement -Clinical Debridement Subcutaneous -Post Debridement Size (cm) - Length 1.4 -Post Debridement Size (cm) - Width 3.8 -Post Debridement Size (cm) - Depth 0.2 -Total Square Cm 5.32 -Wound/Ulcer Outcome Not Healed -Ulcer Cleansing Rinsed/ Irrigated with Saline -Foul Odor after Cleansing No -Bioengineered Tissue Yes -Type of bioengineered Tissue EPIFIX -Expiration Date 02/25/22 -Product Lot Number [id number] -Percent Used 100 -Saline Lot Number [id number] -Bleeding Controlled with Pressure -Treatment Response Procedure Tolerated Well Pain Scale: 0-10 Numeric Is Patient Pain Free? Yes Wound debrided: below knee amputation stump site Laterality: Right Wound Grade/Stage: grade 1 Type of Debridement: Excisional debridement Anesthesia Used: 4% Lidocaine Solution Depth: in the subcutaneous layer Percentage of wound debrided: 100 Instrument Used: #15 blade Tissue Removed: fibrous, devitalized subcutaneous, biofilm, slough Severity: Fat Layer Exposed Amount of bleeding with debridement: Mild Bleeding Controlled with: Pressure Patient tolerated procedure well - Additional Wound Wound debrided: sub central metatarsal head region Laterality: Left Wound Grade/Stage: grade 1 Type of Debridement: Excisional debridement Anesthesia Used: 4% Lidocaine Solution Depth: in the subcutaneous layer Percentage of wound debrided: 100 Instrument Used: #15 blade Severity: Fat Layer Exposed Amount of bleeding with debridement: Mild Bleeding Controlled with: Pressure Patient tolerated procedure: Patient tolerated procedure well Assessment/Plan Active Problems Hammer toe of right foot (Chronic) History of right below knee amputation (Chronic) Type 2 diabetes mellitus with diabetic polyneuropathy (Chronic) Ulcer of right lower extremity with fat layer exposed (Chronic) Chronic ulcer of left foot with fat layer exposed (Chronic) Assessment: Right leg ulcer with fat layer exposed. Left foot ulcer with fat layer exposed. Right below-knee amputation. Left Hammer digit syndrome. Peripheral vascular disease status post stenting to the popliteal artery on the right lower extremity. Diabetes with peripheral neuropathy. Malnutrition. Delayed healing. History of drug abuse. Smoker Plan: I reviewed and discussed his plan today. Debridement was performed as noted in the clinical panel. He has demonstrated recent improvement and I recommend continued advanced wound care products such as epi fix. The indication, purpose, anticipated healing and management were discussed in detail. He understands and elects to proceed at this time. Saline irrigation and skin prep was performed. The epi fix was applied according to standard protocol and was further secured in place with a wound veil and Steri-Strips. He tolerated this well and was advised to keep this clean and intact until follow-up next week. I recommend decreasing edema to the right lower extremity with standard windows and doors installer application. He does not have apparent left lower extremity edema. He has known peripheral vascular disease with right popliteal stenting performed by vascular surgeon, Dr. Cristina. 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 He followed up with Dr. Cristina this morning who recommended monitoring this and he will return again in 6 months unless the wound has continued delayed healing or it worsens. To optimize healing by drinking two Fracisco supplements daily at his retirement facility. To keep weight off of his left foot with cam walker offloading Plastizote liner to the left lower extremity. Decrease tension to the right leg wound with compression dressing applied by nursing staff at his skilled facility. To continue to work with physical therapy at the retirement facility. This was previously provided. Additional offloading felt pad was applied. I will continue to monitor him with serial foot x-rays and labs. His labs from May 11 were reviewed with a creatinine of 0.7 albumin of 3.3 white blood cell count of 7.1 he was reassured there are no clinical signs of infection noted today. I recommend he follows up in 1 week or call sooner if he has any questions or concerns. To DC smoking to also optimize healing.
[2017-06-07 14:52] VITALS: BP 102/54; PULSE 79; RESP 18; TEMP 36.8; BMI 56.7
--- NOTE | 2017-06-07 17:22 | PN.PCM_ITS ---
(1) Chronic ulcer of left foot with fat layer exposed Status: Chronic Current Visit: Yes Code(s): L97.522 - Non-pressure chronic ulcer of other part of left foot with fat layer exposed (2) Ulcer of right lower extremity with fat layer exposed Status: Chronic Current Visit: Yes Code(s): L97.912 - Non-pressure chronic ulcer of unspecified part of right lower leg with fat layer exposed (3) Hammer toe of right foot Status: Chronic Current Visit: Yes Code(s): M20.41 - Other hammer toe(s) ( acquired), right foot (4) History of right below knee amputation Status: Chronic Current Visit: Yes Code(s): Z89.511 - Acquired absence of right leg below knee (5) Type 2 diabetes mellitus with diabetic polyneuropathy Status: Chronic Current Visit: Yes Code(s): E11.42 - Type 2 diabetes mellitus with diabetic polyneuropathy Type of Wound Date of Service: 06/09/17 Chief Complaint: right leg ulcer. left foot ulcer History of Wound: This 52-year-old male with diabetes and peripheral vascular disease presents the wound care center for chronic right leg ulcer and his previous below-knee amputation stump site. He wears a cam walker boot with offloading Plastizote to the left foot. He resides at a long-term facility. He denies fever, chill, nausea, vomiting. He had epi fix applied last week and did well. Progress of Wound: Improving - Physical Exam Vital Signs Temp Pulse Resp BP 98.2 F 79 18 102/54 L 06/07/17 14:52 06/07/17 14:52 06/07/17 14:52 06/07/17 14:52 General: Alert, Oriented x3, Cooperative Extremities: No cyanosis, Capillary Refill Less than 3 Seconds, No Calf Tenderness, Diminished Peripheral Pulses, Edema - mild bilateral Skin: Ulcer/ Wound - no purulence, no erythema, no streaking, no odor, no infection noted Wound Measurements and Assessment WC - Nurse 1 - General Ulcer Measurement Start: 05/31/17 14:31 Freq: Status: Active Protocol: Activity Type Activity Date Activity User E-Sign Co-Sign Detail Recorded Client Recorded Date Recorded By Document 06/07/17 14:52 DL [id number] 06/07/17 15:05 DL 06/07/17 14:52 Wound Center Nurse 1 [Ulcer Assessment] #2 L Plantar -Current Size (cm) - Length 0.2 -Current Size (cm) - Width 0.2 -Current Size (cm) - Depth 0.2 -Total Square Cm 0.04 -Photo Taken No -Maximum Distance #2 (cm) 0.2 -Circular Undermining Yes -Exudate Amt None Present (0 %) -Wound Margin Thickened -Granulation Amt Large (67-100%) -Granulation Quality Pale -Necrosis Amt Small (1-33%) -Necrotic Tissue Type Adherent Slough -Structure Exposed N/A -Texture (Elena-wound Skin Appearance) Callus -Moisture (Elena-wound Skin Appearance Dry/Scaly ) -Color (Elena-wound Skin Appearance) No Abnormality -Temperature (Elena-wound Skin No Abnormality Appearance) (Pt Warm) -Ulcer Cleansing Wound Cleanser -Foul Odor after Cleansing No -Anesthetic Used 4% Lidocaine Solution #1 R BKA Stump -Current Size (cm) - Length 1.1 -Current Size (cm) - Width 1.8 -Current Size (cm) - Depth 0.1 -Total Square Cm 1.98 -Photo Taken No -Exudate Amt Small (1-33%) -Exudate Type Serosanguineous -Wound Margin Thickened -Granulation Amt Medium (34-66%) -Granulation Quality Red -Necrosis Amt Medium (34-66%) -Necrotic Tissue Type Adherent Slough -Structure Exposed N/A -Texture (Elena-wound Skin Appearance) Scarring -Moisture (Elena-wound Skin Appearance Dry/Scaly ) -Color (Elena-wound Skin Appearance) No Abnormality -Temperature (Elena-wound Skin No Abnormality Appearance) (Pt Warm) -Ulcer Cleansing Wound Cleanser -Foul Odor after Cleansing No -Anesthetic Used 4% Lidocaine Solution WC - Nurse 2 - General Ulcer CM Notes Start: 05/31/17 14:31 Freq: Status: Active Protocol: Activity Type Activity Date Activity User E-Sign Co-Sign Detail Recorded Client Recorded Date Recorded By Document 06/07/17 15:22 [id number] 06/07/17 15:27 TM 06/07/17 15:22 Wound Center Nurse 2 [Procedure/Treatment] #2 L Plantar -Time 15:22 -Correct Patient Yes -Correct Side, Site, Position Yes -Correct Procedure Yes -Procedure Performed Yes -Type of Procedure Debridement -Clinical Debridement Subcutaneous -Post Debridement Size (cm) - Length 0.3 -Post Debridement Size (cm) - Width 0.3 -Post Debridement Size (cm) - Depth 0.2 -Total Square Cm 0.09 -Wound/Ulcer Outcome Not Healed -Ulcer Cleansing Rinsed/ Irrigated with Saline -Foul Odor after Cleansing No -Bioengineered Tissue Yes -Type of bioengineered Tissue EPIFIX -Expiration Date 03/27/22 -Product Lot Number [id number] -Percent Used 50 -Saline Lot Number [id number] -Topical Lidocaine (%) 4 -Bleeding Controlled with Pressure -Treatment Response Procedure Tolerated Well #1 R BKA Stump -Time 15:23 -Correct Patient Yes -Correct Side, Site, Position Yes -Correct Procedure Yes -Procedure Performed Yes -Type of Procedure Debridement -Clinical Debridement Subcutaneous -Post Debridement Size (cm) - Length 1.2 -Post Debridement Size (cm) - Width 1.9 -Post Debridement Size (cm) - Depth 0.1 -Total Square Cm 2.28 -Wound/Ulcer Outcome Not Healed -Ulcer Cleansing Rinsed/ Irrigated with Saline -Foul Odor after Cleansing No -Bioengineered Tissue Yes -Type of bioengineered Tissue EPIFIX -Expiration Date 03/27/22 -Product Lot Number [id number] -Percent Used 50 -Saline Lot Number [id number] -Topical Lidocaine (%) 4 -Bleeding Controlled with Pressure -Treatment Response Procedure Tolerated Well [See Physician Procedure note for Specifics] Pain Scale: 0-10 Numeric [Pain] -Is Patient Pain Free? Yes Musculoskeletal: No Tenderness to Palpation of Joints or Extremities, Muscle Wasting, - - right below knee amputation. left hammer toes with prominent metatarsal heads Neurological: - - lack of epicritic sensation noted via light touch Psych/Mental Status: Normal Affect, Appropriate Debridement Note Post-Debridement Measurements/Treatment WC - Nurse 2 - General Ulcer CM Notes Start: 05/31/17 14:31 Freq: Status: Active Protocol: Activity Type Activity Date Activity User E-Sign Co-Sign Detail Recorded Client Recorded Date Recorded By Document 05/31/17 14:50 [id number] 05/31/17 14:53 Document 06/07/17 15:22 [id number] 06/07/17 15:27 TM 05/31/17 06/07/17 14:50 15:22 Wound Center Nurse 2 #2 L Plantar -Time 14:51 15:22 -Correct Patient Yes Yes -Correct Side, Site, Position Yes Yes -Correct Procedure Yes Yes -Procedure Performed Yes Yes -Type of Procedure Debridement Debridement -Clinical Debridement Subcutaneous Subcutaneous -Post Debridement Size (cm) - Length 1.0 0.3 -Post Debridement Size (cm) - Width 0.5 0.3 -Post Debridement Size (cm) - Depth 0.2 0.2 -Total Square Cm 0.50 0.09 -Wound/Ulcer Outcome Not Healed Not Healed -Ulcer Cleansing Rinsed/ Rinsed/ Irrigated with Irrigated with Saline Saline -Foul Odor after Cleansing No No -Bioengineered Tissue Yes Yes -Type of bioengineered Tissue EPIFIX EPIFIX -Expiration Date 02/24/22 03/27/22 -Product Lot Number [id number] -Percent Used 100 50 -Saline Lot Number [id number] -Topical Lidocaine (%) 4 -Bleeding Controlled with Pressure Pressure -Treatment Response Procedure Procedure Tolerated Well Tolerated Well #1 R BKA Stump -Time 14:52 15:23 -Correct Patient Yes Yes -Correct Side, Site, Position Yes Yes -Correct Procedure Yes Yes -Procedure Performed Yes Yes -Type of Procedure Debridement Debridement -Clinical Debridement Subcutaneous Subcutaneous -Post Debridement Size (cm) - Length 1.4 1.2 -Post Debridement Size (cm) - Width 3.8 1.9 -Post Debridement Size (cm) - Depth 0.2 0.1 -Total Square Cm 5.32 2.28 -Wound/Ulcer Outcome Not Healed Not Healed -Ulcer Cleansing Rinsed/ Rinsed/ Irrigated with Irrigated with Saline Saline -Foul Odor after Cleansing No No -Bioengineered Tissue Yes Yes -Type of bioengineered Tissue EPIFIX EPIFIX -Expiration Date 02/25/22 03/27/22 -Product Lot Number [id number] -Percent Used 100 50 -Saline Lot Number [id number] -Topical Lidocaine (%) 4 -Bleeding Controlled with Pressure Pressure -Treatment Response Procedure Procedure Tolerated Well Tolerated Well Pain Scale: 0-10 Numeric Is Patient Pain Free? Yes Yes Wound debrided: leg Laterality: Right Wound Grade/Stage: grade 1 Type of Debridement: Excisional debridement Anesthesia Used: 4% Lidocaine Solution Depth: in the subcutaneous layer Percentage of wound debrided: 100 Instrument Used: #15 blade Tissue Removed: fibrous, devitalized subcutaneous, biofilm, slough Severity: Fat Layer Exposed Amount of bleeding with debridement: Mild Bleeding Controlled with: Pressure Patient tolerated procedure well - Additional Wound Wound debrided: plantar foot Laterality: Left Wound Grade/Stage: grade 1 Type of Debridement: Excisional debridement Anesthesia Used: 4% Lidocaine Solution Depth: in the subcutaneous layer Percentage of wound debrided: 100 Instrument Used: #15 blade Tissue Removed: fibrous, devitalized subcutaneous, biofilm, slough Severity: Fat Layer Exposed Amount of bleeding with debridement: Mild Bleeding Controlled with: Pressure Patient tolerated procedure: Patient tolerated procedure well Assessment/Plan Active Problems Hammer toe of right foot (Chronic) History of right below knee amputation (Chronic) Type 2 diabetes mellitus with diabetic polyneuropathy (Chronic) Ulcer of right lower extremity with fat layer exposed (Chronic) Chronic ulcer of left foot with fat layer exposed (Chronic) Assessment: Right leg ulcer with fat layer exposed. Left foot ulcer with fat layer exposed. Right below-knee amputation. Left Hammer digit syndrome. Peripheral vascular disease status post stenting to the popliteal artery on the right lower extremity. Diabetes with peripheral neuropathy. Malnutrition. Delayed healing. History of drug abuse. Smoker Plan: I reviewed and discussed his plan today. Debridement was performed as noted in the clinical panel. He has demonstrated recent improvement and I recommend continued advanced wound care products such as epi fix. The indication, purpose, anticipated healing and management were discussed in detail. He understands and elects to proceed at this time. Saline irrigation and skin prep was performed. The epi fix was applied according to standard protocol and was further secured in place with a wound veil and Steri-Strips. He tolerated this well and was advised to keep this clean and intact until follow-up next week. I recommend decreasing edema to the right lower extremity with standard automation consultant application. He does not have apparent left lower extremity edema. He has known peripheral vascular disease with right popliteal stenting performed by vascular surgeon, Dr. Cristina. 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 He followed up with Dr. Cristina who recommended monitoring this and he will return again in 6 months unless the wound has continued delayed healing or it worsens. To optimize healing by drinking two Fracisco supplements daily at his long-term facility. To keep weight off of his left foot with cam walker offloading Plastizote liner to the left lower extremity. Decrease tension to the right leg wound with compression dressing applied by nursing staff at his skilled facility. To continue to work with physical therapy at the long-term facility. This was previously provided. Additional offloading felt pad was applied. I will continue to monitor him with serial foot x-rays and labs. His labs from May 11 were reviewed with a creatinine of 0.7 albumin of 3.3 white blood cell count of 7.1 he was reassured there are no clinical signs of infection noted today. I recommend he follows up in 1 week or call sooner if he has any questions or concerns. To DC smoking to also optimize healing.
[2017-06-14 14:40] VITALS: BP 121/76; PULSE 80; RESP 18; TEMP 36.9; BMI 56.7
--- NOTE | 2017-06-14 15:19 | PN.PCM_ITS ---
(1) Chronic ulcer of left foot with fat layer exposed Status: Chronic Current Visit: Yes Code(s): L97.522 - Non-pressure chronic ulcer of other part of left foot with fat layer exposed (2) Ulcer of right lower extremity with fat layer exposed Status: Chronic Current Visit: Yes Code(s): L97.912 - Non-pressure chronic ulcer of unspecified part of right lower leg with fat layer exposed (3) Hammer toe of right foot Status: Chronic Current Visit: Yes Code(s): M20.41 - Other hammer toe(s) ( acquired), right foot (4) History of right below knee amputation Status: Chronic Current Visit: Yes Code(s): Z89.511 - Acquired absence of right leg below knee (5) Type 2 diabetes mellitus with diabetic polyneuropathy Status: Chronic Current Visit: Yes Code(s): E11.42 - Type 2 diabetes mellitus with diabetic polyneuropathy (6) Delayed wound healing Status: Chronic Current Visit: Yes Code(s): T14.8XXD - Other injury of unspecified body region, subsequent encounter Type of Wound Date of Service: 06/14/17 Chief Complaint: right leg ulcer. left foot ulcer History of Wound: This 52-year-old male with diabetes and peripheral vascular disease presents the wound care center for chronic right leg ulcer and his previous below-knee amputation stump site. He wears a cam walker boot with offloading Plastizote to the left foot. He resides at a half-way facility. He denies fever, chill, nausea, vomiting. He had epi fix applied last week and did well. The right leg advanced product actually get removed early on Monday while he was showering. He denies other new traumas. Progress of Wound: Improving - Physical Exam Vital Signs Temp Pulse Resp BP 98.4 F 80 18 121/76 H 06/14/17 14:40 06/14/17 14:40 06/14/17 14:40 06/14/17 14:40 General: Alert, Oriented x3, Cooperative Extremities: No cyanosis, Capillary Refill Less than 3 Seconds, No Calf Tenderness - Negative Germán and Cobian sign bilateral, Diminished Peripheral Pulses, Edema - Mild bilateral lower extremities Skin: Ulcer/ Wound - No purulence, no erythema, no streaking, no acute signs of infection bilateral. Continued peripheral epithelialization is noted to bilateral sites. The skin is atrophic and hairless bilateral Wound Measurements and Assessment WC - Nurse 1 - General Ulcer Measurement Start: 05/31/17 14:31 Freq: Status: Active Protocol: Activity Type Activity Date Activity User E-Sign Co-Sign Detail Recorded Client Recorded Date Recorded By Document 06/14/17 14:40 [email or web address] [id number] 06/14/17 14:45 ALONDRA 06/14/17 14:40 Wound Center Nurse 1 [Ulcer Assessment] #2 L Plantar -Combined with other wound No -Current Size (cm) - Length 0.4 -Current Size (cm) - Width 0.3 -Current Size (cm) - Depth 0.1 -Total Square Cm 0.12 -Photo Taken No -Epithelialization Large 67-100% -Tunneling No -Undermining/Tunneling No -Circular Undermining No -Exudate Amt Small (1-33%) -Exudate Type Serosanguineous -Wound Margin Indistinct, Non -Visible -Granulation Amt Small (1-33%) -Granulation Quality Red -Slough/Fibrin Yes -Necrosis Amt Medium (34-66%) -Necrotic Tissue Type Adherent Slough -Structure Exposed N/A -Texture (Elena-wound Skin Appearance) Assessed Localized Edema -Moisture (Elena-wound Skin Appearance Assessed ) Dry/Scaly -Color (Elena-wound Skin Appearance) Assessed -Temperature (Elena-wound Skin No Abnormality Appearance) (Pt Warm) -Tenderness on Palpation (Elena-wound No Skin Appearance) -Ulcer Cleansing Wound Cleanser -Foul Odor after Cleansing No -Anesthetic Used 4% Lidocaine Solution #1 R BKA Stump -Combined with other wound No -Current Size (cm) - Length 1.0 -Current Size (cm) - Width 2.0 -Current Size (cm) - Depth 0.1 -Total Square Cm 2.00 -Photo Taken No -Epithelialization Large 67-100% -Tunneling No -Undermining/Tunneling No -Circular Undermining No -Exudate Amt None Present (0 %) -Wound Margin Indistinct, Non -Visible -Granulation Amt Small (1-33%) -Granulation Quality Red -Slough/Fibrin Yes -Necrosis Amt Medium (34-66%) -Necrotic Tissue Type Adherent Slough -Structure Exposed N/A -Texture (Elena-wound Skin Appearance) Assessed Localized Edema Scarring -Moisture (Elena-wound Skin Appearance Assessed ) Dry/Scaly -Color (Elena-wound Skin Appearance) Assessed -Temperature (Elena-wound Skin No Abnormality Appearance) (Pt Warm) -Tenderness on Palpation (Elena-wound No Skin Appearance) -Ulcer Cleansing Wound Cleanser -Foul Odor after Cleansing No -Anesthetic Used 4% Lidocaine Solution [Edema Assessment] -Lower Limb Edema Present No WC - Nurse 2 - General Ulcer CM Notes Start: 05/31/17 14:31 Freq: Status: Active Protocol: Activity Type Activity Date Activity User E-Sign Co-Sign Detail Recorded Client Recorded Date Recorded By Document 06/14/17 15:01 TM [id number] 06/14/17 15:04 TM 06/14/17 15:01 Wound Center Nurse 2 [Procedure/Treatment] #2 L Plantar -Time 15:02 -Correct Patient Yes -Correct Side, Site, Position Yes -Correct Procedure Yes -Procedure Performed Yes -Type of Procedure Debridement -Clinical Debridement Subcutaneous -Post Debridement Size (cm) - Length 0.5 -Post Debridement Size (cm) - Width 0.4 -Post Debridement Size (cm) - Depth 0.1 -Total Square Cm 0.20 -Wound/Ulcer Outcome Not Healed -Ulcer Cleansing Rinsed/ Irrigated with Saline -Foul Odor after Cleansing No -Bioengineered Tissue Yes -Type of bioengineered Tissue EPIFIX -Expiration Date 03/27/22 -Product Lot Number [id number] -Percent Used 50 -Saline Lot Number [id number] -Topical Lidocaine (%) 4 -Bleeding Controlled with Pressure -Treatment Response Procedure Tolerated Well #1 R BKA Stump -Time 15:03 -Correct Patient Yes -Correct Side, Site, Position Yes -Correct Procedure Yes -Procedure Performed Yes -Type of Procedure Debridement -Clinical Debridement Subcutaneous -Post Debridement Size (cm) - Length 1.1 -Post Debridement Size (cm) - Width 2.1 -Post Debridement Size (cm) - Depth 0.1 -Total Square Cm 2.31 -Wound/Ulcer Outcome Not Healed -Ulcer Cleansing Rinsed/ Irrigated with Saline -Foul Odor after Cleansing No -Bioengineered Tissue Yes -Type of bioengineered Tissue EPIFIX -Expiration Date 03/27/22 -Product Lot Number [id number] -Percent Used 50 -Saline Lot Number [id number] -Topical Lidocaine (%) 4 -Bleeding Controlled with Pressure -Treatment Response Procedure Tolerated Well [See Physician Procedure note for Specifics] Pain Scale: 0-10 Numeric [Pain] -Is Patient Pain Free? Yes Musculoskeletal: No Tenderness to Palpation of Joints or Extremities, Muscle Wasting, - - Right below-knee amputation and left dorsal digital contraction of prominent metatarsal heads noted. Compartments of left lower extremity are soft to palpation Neurological: - - Lack of epicritic sensation light touch left lower extremity Psych/Mental Status: Normal Affect, Appropriate Debridement Note Post-Debridement Measurements/Treatment WC - Nurse 2 - General Ulcer CM Notes Start: 05/31/17 14:31 Freq: Status: Active Protocol: Activity Type Activity Date Activity User E-Sign Co-Sign Detail Recorded Client Recorded Date Recorded By Document 05/31/17 14:50 [id number] 05/31/17 14:53 Document 06/07/17 15:22 TM [id number] 06/07/17 15:27 TM Document 06/14/17 15:01 [id number] 06/14/17 15:04 TM 05/31/17 06/07/17 06/14/17 14:50 15:22 15:01 Wound Center Nurse 2 #2 L Plantar -Time 14:51 15:22 15:02 -Correct Patient Yes Yes Yes -Correct Side, Site, Position Yes Yes Yes -Correct Procedure Yes Yes Yes -Procedure Performed Yes Yes Yes -Type of Procedure Debridement Debridement Debridement -Clinical Debridement Subcutaneous Subcutaneous Subcutaneous -Post Debridement Size (cm) - Length 1.0 0.3 0.5 -Post Debridement Size (cm) - Width 0.5 0.3 0.4 -Post Debridement Size (cm) - Depth 0.2 0.2 0.1 -Total Square Cm 0.50 0.09 0.20 -Wound/Ulcer Outcome Not Healed Not Healed Not Healed -Ulcer Cleansing Rinsed/ Rinsed/ Rinsed/ Irrigated with Irrigated with Irrigated with Saline Saline Saline -Foul Odor after Cleansing No No No -Bioengineered Tissue Yes Yes Yes -Type of bioengineered Tissue EPIFIX EPIFIX EPIFIX -Expiration Date 02/24/22 03/27/22 03/27/22 -Product Lot Number [id number] -Percent Used 100 50 50 -Saline Lot Number [id number] -Topical Lidocaine (%) 4 4 -Bleeding Controlled with Pressure Pressure Pressure -Treatment Response Procedure Procedure Procedure Tolerated Well Tolerated Well Tolerated Well #1 R BKA Stump -Time 14:52 15:23 15:03 -Correct Patient Yes Yes Yes -Correct Side, Site, Position Yes Yes Yes -Correct Procedure Yes Yes Yes -Procedure Performed Yes Yes Yes -Type of Procedure Debridement Debridement Debridement -Clinical Debridement Subcutaneous Subcutaneous Subcutaneous -Post Debridement Size (cm) - Length 1.4 1.2 1.1 -Post Debridement Size (cm) - Width 3.8 1.9 2.1 -Post Debridement Size (cm) - Depth 0.2 0.1 0.1 -Total Square Cm 5.32 2.28 2.31 -Wound/Ulcer Outcome Not Healed Not Healed Not Healed -Ulcer Cleansing Rinsed/ Rinsed/ Rinsed/ Irrigated with Irrigated with Irrigated with Saline Saline Saline -Foul Odor after Cleansing No No No -Bioengineered Tissue Yes Yes Yes -Type of bioengineered Tissue EPIFIX EPIFIX EPIFIX -Expiration Date 02/25/22 03/27/22 03/27/22 -Product Lot Number [id number] -Percent Used 100 50 50 -Saline Lot Number [id number] -Topical Lidocaine (%) 4 4 -Bleeding Controlled with Pressure Pressure Pressure -Treatment Response Procedure Procedure Procedure Tolerated Well Tolerated Well Tolerated Well Pain Scale: 0-10 Numeric Is Patient Pain Free? Yes Yes Yes Wound debrided: sub metatarsal head Laterality: Left Wound Grade/Stage: grade 1 Type of Debridement: Excisional debridement Anesthesia Used: 4% Lidocaine Solution Depth: in the subcutaneous layer Percentage of wound debrided: 100 Instrument Used: #15 blade Tissue Removed: fibrous, devitalized subcutaneous tissue, biofilm, slough Severity: Fat Layer Exposed Amount of bleeding with debridement: Mild Bleeding Controlled with: Pressure Patient tolerated procedure well - Additional Wound Wound debrided: below knee amputation stump site Laterality: Right Wound Grade/Stage: grade 1 Type of Debridement: Excisional debridement Anesthesia Used: 4% Lidocaine Solution Depth: in the subcutaneous layer Percentage of wound debrided: 100 Instrument Used: #15 blade Tissue Removed: fibrous, devitalized subcutaneous tissue, biofilm, slough Severity: Fat Layer Exposed Amount of bleeding with debridement: Mild Bleeding Controlled with: Pressure Patient tolerated procedure: Patient tolerated procedure well Assessment/Plan Active Problems Hammer toe of right foot (Chronic) History of right below knee amputation (Chronic) Delayed wound healing (Chronic) Type 2 diabetes mellitus with diabetic polyneuropathy (Chronic) Ulcer of right lower extremity with fat layer exposed (Chronic) Chronic ulcer of left foot with fat layer exposed (Chronic) Assessment: Right leg ulcer with fat layer exposed. Left foot ulcer with fat layer exposed. Right below-knee amputation. Left Hammer digit syndrome. Peripheral vascular disease status post stenting to the popliteal artery on the right lower extremity. Diabetes with peripheral neuropathy. Malnutrition. Delayed healing. History of drug abuse. Smoker Plan: I reviewed and discussed his plan today. Debridement was performed as noted in the clinical panel to bilateral lower extremities. He has demonstrated recent improvement and I recommend continued advanced wound care products such as epi fix. The indication, purpose, anticipated healing and management were discussed in detail. He understands and elects to proceed at this time. Saline irrigation and skin prep was performed. The epi fix was applied according to standard protocol and was further secured in place with a wound veil and Steri-Strips. He tolerated this well and was advised to keep this clean and intact until follow-up next week. I recommend decreasing edema to the right lower extremity with standard local delivery driver application. He does not have apparent left lower extremity edema. He has known peripheral vascular disease with right popliteal stenting performed by vascular surgeon, Dr. Cristina. 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 He followed up with Dr. Cristina who recommended monitoring this and he will return again in 6 months unless the wound has continued delayed healing or it worsens. To optimize healing by drinking two Fracisco supplements daily at his half-way facility. To keep weight off of his left foot with cam walker offloading Plastizote liner to the left lower extremity. Decrease tension to the right leg wound with compression dressing applied by nursing staff at his skilled facility. To continue to work with physical therapy at the half-way facility. I will continue to monitor him with serial foot x-rays and labs. His labs from May 11 were reviewed with a creatinine of 0.7 albumin of 3.3 white blood cell count of 7.1 he was reassured there are no clinical signs of infection noted today. I recommend he follows up in 1 week or call sooner if he has any questions or concerns. To DC smoking to also optimize healing.
== END 2017-06-24 23:59 ==
LOC: WC 15:00
PROVIDERS: Visit Provider Podiatrist
DX: E11.621 Type 2 diabetes mellitus with foot ulcer (principal); Z89.511 Acquired absence of right leg below knee; E11.42 Type 2 diabetes mellitus with diabetic polyneuropathy; L97.812 Non-pressure chronic ulcer of other part of right lower leg with fat layer exposed; E11.622 Type 2 diabetes mellitus with other skin ulcer; E11.51 Type 2 diabetes mellitus with diabetic peripheral angiopathy without gangrene; L97.522 Non-pressure chronic ulcer of other part of left foot with fat layer exposed; R60.0 Localized edema; R09.89 Other specified symptoms and signs involving the circulatory and respiratory systems; F17.200 Nicotine dependence, unspecified, uncomplicated; M20.42 Other hammer toe(s) (acquired), left foot
CPT/HCPCS: 15271; 15275; Q4131

== ENCOUNTER 2017-07-19 10:30 | Outpatient (RCR) | payer MEDICAID, SELFPAY ==
[2017-06-25 00:43] VITALS: BP 121/84; PULSE 80; RESP 18; TEMP 36.9; BMI 56.7
[2017-06-28 08:23] VITALS: BP 125/84; PULSE 87; RESP 18; TEMP 36.6; BMI 56.7
--- NOTE | 2017-06-28 10:15 | PCM.WC.PN ---
(1) Hammer toe of right foot Status: Chronic Current Visit: Yes Code(s): M20.41 - Other hammer toe(s) (acquired), right foot (2) Type 2 diabetes mellitus with diabetic polyneuropathy Status: Chronic Current Visit: Yes Code(s): E11.42 - Type 2 diabetes mellitus with diabetic polyneuropathy (3) Ulcer of right lower extremity with fat layer exposed Status: Chronic Current Visit: Yes Code(s): L97.912 - Non-pressure chronic ulcer of unspecified part of right lower leg with fat layer exposed (4) Chronic ulcer of left foot with fat layer exposed Status: Chronic Current Visit: Yes Code(s): L97.522 - Non-pressure chronic ulcer of other part of left foot with fat layer exposed Type of Wound Date of Service: 06/29/17 Chief Complaint: right leg ulcer. left foot ulcer History of Wound: This 52-year-old male with diabetes and peripheral vascular disease presents the wound care center for chronic right leg ulcer and his previous below-knee amputation stump site. He wears a cam walker boot with offloading Plastizote to the left foot. [facility] a [facility]. He denies fever, chill, nausea, vomiting. He had epi fix applied last week and did well. Progress of Wound: Improving - Physical Exam Vital Signs Temp Pulse Resp BP 98 F 87 18 125/84 H 06/28/17 08:23 06/28/17 08:23 06/28/17 08:23 06/28/17 08:23 General: Alert, Oriented x3, Cooperative Extremities: No cyanosis, No edema, Capillary Refill Less than 3 Seconds, No Calf Tenderness, Diminished Peripheral Pulses Skin: Ulcer/ Wound - no purulence, no erythema, no streaking, no odor bilateral. no deep tissue exposed bilateral Wound Measurements and Assessment WC - Nurse 1 - General Ulcer Measurement Start: 06/28/17 08:23 Freq: Status: Active Protocol: Activity Type Activity Date Activity User E-Sign Co-Sign Detail Recorded Client Recorded Date Recorded By Document 06/28/17 08:23 RB [id number] 06/28/17 08:40 RB 06/28/17 08:23 Wound Center Nurse 1 [Ulcer Assessment] #2 L Plantar -Combined with other wound No -Current Size (cm) - Length 0.3 -Current Size (cm) - Width 0.2 -Current Size (cm) - Depth 0.2 -Total Square Cm 0.06 -Photo Taken No -Tunneling No -Undermining/Tunneling Yes -Undermining/Tunneling Starts (O' 10 clock) -Undermining/Tunneling Ends (O'clock) 2 -Maximum Distance (cm) 0.2 -Circular Undermining No -Classification - Thickness Full Thickness without Exposed Support Structure -Exudate Amt Small (1-33%) -Exudate Type Serosanguineous -Wound Margin Distinct, Outline Attached -Granulation Amt Medium (34-66%) -Granulation Quality [place] -Slough/Fibrin Yes -Necrosis Amt Medium (34-66%) -Necrotic Tissue Type Adherent Slough -Structure Exposed N/A -Texture (Elena-wound Skin Appearance) Callus -Moisture (Elena-wound Skin Appearance Assessed ) -Color (Elena-wound Skin Appearance) Assessed -Temperature (Elena-wound Skin No Abnormality Appearance) (Pt Warm) -Tenderness on Palpation (Elena-wound No Skin Appearance) -Ulcer Cleansing Rinsed/ Irrigated with Saline -Foul Odor after Cleansing No -Anesthetic Used 4% Lidocaine Solution #1 R BKA Stump -Combined with other wound No -Current Size (cm) - Length 2 -Current Size (cm) - Width 2.8 -Current Size (cm) - Depth 0.1 -Total Square Cm 5.6 -Photo Taken No -Tunneling No -Undermining/Tunneling No -Circular Undermining No -Classification - Thickness Full Thickness without Exposed Support Structure -Exudate Amt None Present (0 %) -Wound Margin Distinct, Outline Attached -Granulation Amt Small (1-33%) -Granulation Quality [place] -Slough/Fibrin Yes -Necrosis Amt Large (67-100%) -Necrotic Tissue Type Adherent Slough -Structure Exposed N/A -Texture (Elena-wound Skin Appearance) Assessed -Moisture (Elena-wound Skin Appearance Assessed ) -Color (Elena-wound Skin Appearance) Assessed -Temperature (Elena-wound Skin No Abnormality Appearance) (Pt Warm) -Tenderness on Palpation (Elena-wound No Skin Appearance) -Ulcer Cleansing Rinsed/ Irrigated with Saline -Foul Odor after Cleansing No -Anesthetic Used 4% Lidocaine Solution WC - Nurse 2 - General Ulcer CM Notes Start: 06/28/17 08:23 Freq: Status: Active Protocol: Activity Type Activity Date Activity User E-Sign Co-Sign Detail Recorded Client Recorded Date Recorded By Document 06/28/17 09:08 [id number] 06/28/17 09:12 06/28/17 09:08 Wound Center Nurse 2 [Procedure/Treatment] #2 L Plantar -Time 09:09 -Correct Patient Yes -Correct Side, Site, Position Yes -Correct Procedure Yes -Procedure Performed Yes -Type of Procedure Debridement -Clinical Debridement Subcutaneous -Post Debridement Size (cm) - Length 0.4 -Post Debridement Size (cm) - Width 0.3 -Post Debridement Size (cm) - Depth 0.2 -Total Square Cm 0.12 -Wound/Ulcer Outcome Not Healed -Ulcer Cleansing Rinsed/ Irrigated with Saline -Foul Odor after Cleansing No -Bioengineered Tissue Yes -Type of bioengineered Tissue EPIFIX -Expiration Date 03/27/22 -Product Lot Number [id number] -Percent Used 50 -Saline Lot Number [id number] -Topical Lidocaine (%) 4 -Bleeding Controlled with Pressure -Treatment Response Procedure Tolerated Well #1 R BKA Stump -Time 09:10 -Correct Patient Yes -Correct Side, Site, Position Yes -Correct Procedure Yes -Procedure Performed Yes -Type of Procedure Debridement -Clinical Debridement Subcutaneous -Post Debridement Size (cm) - Length 2.1 -Post Debridement Size (cm) - Width 2.9 -Post Debridement Size (cm) - Depth 0.1 -Total Square Cm 6.09 -Wound/Ulcer Outcome Not Healed -Ulcer Cleansing Rinsed/ Irrigated with Saline -Foul Odor after Cleansing No -Bioengineered Tissue Yes -Type of bioengineered Tissue EPIFIX -Expiration Date 03/27/22 -Product Lot Number [id number] -Percent Used 50 -Saline Lot Number [id number] -Topical Lidocaine (%) 4 -Bleeding Controlled with Pressure -Treatment Response Procedure Tolerated Well [See Physician Procedure note for Specifics] Pain Scale: 0-10 Numeric [Pain] -Is Patient Pain Free? Yes Musculoskeletal: No Tenderness to Palpation of Joints or Extremities, Muscle Wasting, - - right below knee amputation. left hammer toe with prominent metatarsal head Neurological: - - lack of epicritic sensation via light touch left foot Psych/Mental Status: Normal Affect, Appropriate Debridement Note Post-Debridement Measurements/Treatment WC - Nurse 2 - General Ulcer CM Notes Start: 06/28/17 08:23 Freq: Status: Active Protocol: Activity Type Activity Date Activity User E-Sign Co-Sign Detail Recorded Client Recorded Date Recorded By Document 06/28/17 09:08 [id number] 06/28/17 09:12 06/28/17 09:08 Wound Center Nurse 2 #2 L Plantar -Time 09:09 -Correct Patient Yes -Correct Side, Site, Position Yes -Correct Procedure Yes -Procedure Performed Yes -Type of Procedure Debridement -Clinical Debridement Subcutaneous -Post Debridement Size (cm) - Length 0.4 -Post Debridement Size (cm) - Width 0.3 -Post Debridement Size (cm) - Depth 0.2 -Total Square Cm 0.12 -Wound/Ulcer Outcome Not Healed -Ulcer Cleansing Rinsed/ Irrigated with Saline -Foul Odor after Cleansing No -Bioengineered Tissue Yes -Type of bioengineered Tissue EPIFIX -Expiration Date 03/27/22 -Product Lot Number [id number] -Percent Used 50 -Saline Lot Number [id number] -Topical Lidocaine (%) 4 -Bleeding Controlled with Pressure -Treatment Response Procedure Tolerated Well #1 R BKA Stump -Time 09:10 -Correct Patient Yes -Correct Side, Site, Position Yes -Correct Procedure Yes -Procedure Performed Yes -Type of Procedure Debridement -Clinical Debridement Subcutaneous -Post Debridement Size (cm) - Length 2.1 -Post Debridement Size (cm) - Width 2.9 -Post Debridement Size (cm) - Depth 0.1 -Total Square Cm 6.09 -Wound/Ulcer Outcome Not Healed -Ulcer Cleansing Rinsed/ Irrigated with Saline -Foul Odor after Cleansing No -Bioengineered Tissue Yes -Type of bioengineered Tissue EPIFIX -Expiration Date 03/27/22 -Product Lot Number [id number] -Percent Used 50 -Saline Lot Number [id number] -Topical Lidocaine (%) 4 -Bleeding Controlled with Pressure -Treatment Response Procedure Tolerated Well Pain Scale: 0-10 Numeric Is Patient Pain Free? Yes Wound debrided: sub metatarsal head Laterality: Right Wound Grade/Stage: grade 1 Type of Debridement: Excisional debridement Anesthesia Used: 4% Lidocaine Solution Depth: in the subcutaneous layer Percentage of wound debrided: 100 Instrument Used: #15 blade Tissue Removed: devitalized subcutaneous, fibrous, biofilm, slough Severity: Fat Layer Exposed Amount of bleeding with debridement: Mild Bleeding Controlled with: Pressure Patient tolerated procedure well - Additional Wound Wound debrided: below knee amputation site Laterality: Left Wound Grade/Stage: grade 1 Type of Debridement: Excisional debridement Anesthesia Used: 4% Lidocaine Solution Depth: in the subcutaneous layer Percentage of wound debrided: 100 Instrument Used: #15 blade Tissue Removed: devitalized subcutaneous, fibrous, biofilm, slough Severity: Fat Layer Exposed Amount of bleeding with debridement: Mild Bleeding Controlled with: Pressure Patient tolerated procedure: Patient tolerated procedure well Assessment/Plan Active Problems Hammer toe of right foot (Chronic) Type 2 diabetes mellitus with diabetic polyneuropathy (Chronic) Ulcer of right lower extremity with fat layer exposed (Chronic) Chronic ulcer of left foot with fat layer exposed (Chronic) Assessment: Right leg ulcer with fat layer exposed. Left foot ulcer with fat layer exposed. Right below-knee amputation. Left Hammer digit syndrome. Peripheral vascular disease status post stenting to the popliteal artery on the right lower extremity. Diabetes with peripheral neuropathy. Malnutrition. Delayed healing. History of drug abuse. Smoker Plan: I reviewed and discussed his plan today. Debridement was performed as noted in the clinical panel to bilateral lower extremities. He has demonstrated recent improvement and I recommend continued advanced wound care products such as epi fix. The indication, purpose, anticipated healing and management were discussed in detail. He understands and elects to proceed at this time. Saline irrigation and skin prep was performed. The epi fix was applied according to standard protocol and was further secured in place with a wound veil and Steri-Strips. He tolerated this well and was advised to keep this clean and intact until follow-up next week. I recommend decreasing edema to the right lower extremity with standard research statistician application. He does not have apparent left lower extremity edema. He has known peripheral vascular disease with right popliteal stenting performed by vascular surgeon, Dr. Cristina. 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 He followed up with Dr. Cristina who recommended monitoring this and he will return again in 6 months unless the wound has continued delayed healing or it worsens. To optimize healing by drinking two Fracisco supplements daily at his [facility] facility. To keep weight off of his left foot with cam walker offloading Plastizote liner to the left lower extremity.This was replaced today with a felt offloading double layer to better offload the ulcer site. He was advised to keep his heel in proper position in the back of the cam walker to ensure this is lined up. Decrease tension to the right leg wound with compression dressing applied by nursing staff at his skilled facility. To continue to work with physical therapy at the [facility] facility. I will continue to monitor him with serial foot x-rays and labs. His labs from May 11 were reviewed with a creatinine of 0.7 albumin of 3.3 white blood cell count of 7.1 he was reassured there are no clinical signs of infection noted today. I recommend he follows up in 1 week or call sooner if he has any questions or concerns. To DC smoking to also optimize healing.
--- NOTE | 2017-06-28 10:18 | PN.PCM_ITS ---
(1) Hammer toe of right foot Status: Chronic Current Visit: Yes Code(s): M20.41 - Other hammer toe(s) ( acquired), right foot (2) Type 2 diabetes mellitus with diabetic polyneuropathy Status: Chronic Current Visit: Yes Code(s): E11.42 - Type 2 diabetes mellitus with diabetic polyneuropathy (3) Ulcer of right lower extremity with fat layer exposed Status: Chronic Current Visit: Yes Code(s): L97.912 - Non-pressure chronic ulcer of unspecified part of right lower leg with fat layer exposed (4) Chronic ulcer of left foot with fat layer exposed Status: Chronic Current Visit: Yes Code(s): L97.522 - Non-pressure chronic ulcer of other part of left foot with fat layer exposed Type of Wound Date of Service: 06/29/17 Chief Complaint: right leg ulcer. left foot ulcer History of Wound: This 52-year-old male with diabetes and peripheral vascular disease presents the wound care center for chronic right leg ulcer and his previous below-knee amputation stump site. He wears a cam walker boot with offloading Plastizote to the left foot. He resides at a senior care facility. He denies fever, chill, nausea, vomiting. He had epi fix applied last week and did well. Progress of Wound: Improving - Physical Exam Vital Signs Temp Pulse Resp BP 98 F 87 18 125/84 H 06/28/17 08:23 06/28/17 08:23 06/28/17 08:23 06/28/17 08:23 General: Alert, Oriented x3, Cooperative Extremities: No cyanosis, No edema, Capillary Refill Less than 3 Seconds, No Calf Tenderness, Diminished Peripheral Pulses Skin: Ulcer/ Wound - no purulence, no erythema, no streaking, no odor bilateral. no deep tissue exposed bilateral Wound Measurements and Assessment WC - Nurse 1 - General Ulcer Measurement Start: 06/28/17 08:23 Freq: Status: Active Protocol: Activity Type Activity Date Activity User E-Sign Co-Sign Detail Recorded Client Recorded Date Recorded By Document 06/28/17 08:23 RB [id number] 06/28/17 08:40 RB 06/28/17 08:23 Wound Center Nurse 1 [Ulcer Assessment] #2 L Plantar -Combined with other wound No -Current Size (cm) - Length 0.3 -Current Size (cm) - Width 0.2 -Current Size (cm) - Depth 0.2 -Total Square Cm 0.06 -Photo Taken No -Tunneling No -Undermining/Tunneling Yes -Undermining/Tunneling Starts (O' 10 clock) -Undermining/Tunneling Ends (O'clock) 2 -Maximum Distance (cm) 0.2 -Circular Undermining No -Classification - Thickness Full Thickness without Exposed Support Structure -Exudate Amt Small (1-33%) -Exudate Type Serosanguineous -Wound Margin Distinct, Outline Attached -Granulation Amt Medium (34-66%) -Granulation Quality [place] -Slough/Fibrin Yes -Necrosis Amt Medium (34-66%) -Necrotic Tissue Type Adherent Slough -Structure Exposed N/A -Texture (Elena-wound Skin Appearance) Callus -Moisture (Elena-wound Skin Appearance Assessed ) -Color (Elena-wound Skin Appearance) Assessed -Temperature (Elena-wound Skin No Abnormality Appearance) (Pt Warm) -Tenderness on Palpation (Elena-wound No Skin Appearance) -Ulcer Cleansing Rinsed/ Irrigated with Saline -Foul Odor after Cleansing No -Anesthetic Used 4% Lidocaine Solution #1 R BKA Stump -Combined with other wound No -Current Size (cm) - Length 2 -Current Size (cm) - Width 2.8 -Current Size (cm) - Depth 0.1 -Total Square Cm 5.6 -Photo Taken No -Tunneling No -Undermining/Tunneling No -Circular Undermining No -Classification - Thickness Full Thickness without Exposed Support Structure -Exudate Amt None Present (0 %) -Wound Margin Distinct, Outline Attached -Granulation Amt Small (1-33%) -Granulation Quality [place] -Slough/Fibrin Yes -Necrosis Amt Large (67-100%) -Necrotic Tissue Type Adherent Slough -Structure Exposed N/A -Texture (Elena-wound Skin Appearance) Assessed -Moisture (Elena-wound Skin Appearance Assessed ) -Color (Elena-wound Skin Appearance) Assessed -Temperature (Elena-wound Skin No Abnormality Appearance) (Pt Warm) -Tenderness on Palpation (Elena-wound No Skin Appearance) -Ulcer Cleansing Rinsed/ Irrigated with Saline -Foul Odor after Cleansing No -Anesthetic Used 4% Lidocaine Solution WC - Nurse 2 - General Ulcer CM Notes Start: 06/28/17 08:23 Freq: Status: Active Protocol: Activity Type Activity Date Activity User E-Sign Co-Sign Detail Recorded Client Recorded Date Recorded By Document 06/28/17 09:08 [id number] 06/28/17 09:12 06/28/17 09:08 Wound Center Nurse 2 [Procedure/Treatment] #2 L Plantar -Time 09:09 -Correct Patient Yes -Correct Side, Site, Position Yes -Correct Procedure Yes -Procedure Performed Yes -Type of Procedure Debridement -Clinical Debridement Subcutaneous -Post Debridement Size (cm) - Length 0.4 -Post Debridement Size (cm) - Width 0.3 -Post Debridement Size (cm) - Depth 0.2 -Total Square Cm 0.12 -Wound/Ulcer Outcome Not Healed -Ulcer Cleansing Rinsed/ Irrigated with Saline -Foul Odor after Cleansing No -Bioengineered Tissue Yes -Type of bioengineered Tissue EPIFIX -Expiration Date 03/27/22 -Product Lot Number [id number] -Percent Used 50 -Saline Lot Number [id number] -Topical Lidocaine (%) 4 -Bleeding Controlled with Pressure -Treatment Response Procedure Tolerated Well #1 R BKA Stump -Time 09:10 -Correct Patient Yes -Correct Side, Site, Position Yes -Correct Procedure Yes -Procedure Performed Yes -Type of Procedure Debridement -Clinical Debridement Subcutaneous -Post Debridement Size (cm) - Length 2.1 -Post Debridement Size (cm) - Width 2.9 -Post Debridement Size (cm) - Depth 0.1 -Total Square Cm 6.09 -Wound/Ulcer Outcome Not Healed -Ulcer Cleansing Rinsed/ Irrigated with Saline -Foul Odor after Cleansing No -Bioengineered Tissue Yes -Type of bioengineered Tissue EPIFIX -Expiration Date 03/27/22 -Product Lot Number [id number] -Percent Used 50 -Saline Lot Number [id number] -Topical Lidocaine (%) 4 -Bleeding Controlled with Pressure -Treatment Response Procedure Tolerated Well [See Physician Procedure note for Specifics] Pain Scale: 0-10 Numeric [Pain] -Is Patient Pain Free? Yes Musculoskeletal: No Tenderness to Palpation of Joints or Extremities, Muscle Wasting, - - right below knee amputation. left hammer toe with prominent metatarsal head Neurological: - - lack of epicritic sensation via light touch left foot Psych/Mental Status: Normal Affect, Appropriate Debridement Note Post-Debridement Measurements/Treatment WC - Nurse 2 - General Ulcer CM Notes Start: 06/28/17 08:23 Freq: Status: Active Protocol: Activity Type Activity Date Activity User E-Sign Co-Sign Detail Recorded Client Recorded Date Recorded By Document 06/28/17 09:08 [id number] 06/28/17 09:12 06/28/17 09:08 Wound Center Nurse 2 #2 L Plantar -Time 09:09 -Correct Patient Yes -Correct Side, Site, Position Yes -Correct Procedure Yes -Procedure Performed Yes -Type of Procedure Debridement -Clinical Debridement Subcutaneous -Post Debridement Size (cm) - Length 0.4 -Post Debridement Size (cm) - Width 0.3 -Post Debridement Size (cm) - Depth 0.2 -Total Square Cm 0.12 -Wound/Ulcer Outcome Not Healed -Ulcer Cleansing Rinsed/ Irrigated with Saline -Foul Odor after Cleansing No -Bioengineered Tissue Yes -Type of bioengineered Tissue EPIFIX -Expiration Date 03/27/22 -Product Lot Number [id number] -Percent Used 50 -Saline Lot Number [id number] -Topical Lidocaine (%) 4 -Bleeding Controlled with Pressure -Treatment Response Procedure Tolerated Well #1 R BKA Stump -Time 09:10 -Correct Patient Yes -Correct Side, Site, Position Yes -Correct Procedure Yes -Procedure Performed Yes -Type of Procedure Debridement -Clinical Debridement Subcutaneous -Post Debridement Size (cm) - Length 2.1 -Post Debridement Size (cm) - Width 2.9 -Post Debridement Size (cm) - Depth 0.1 -Total Square Cm 6.09 -Wound/Ulcer Outcome Not Healed -Ulcer Cleansing Rinsed/ Irrigated with Saline -Foul Odor after Cleansing No -Bioengineered Tissue Yes -Type of bioengineered Tissue EPIFIX -Expiration Date 03/27/22 -Product Lot Number [id number] -Percent Used 50 -Saline Lot Number [id number] -Topical Lidocaine (%) 4 -Bleeding Controlled with Pressure -Treatment Response Procedure Tolerated Well Pain Scale: 0-10 Numeric Is Patient Pain Free? Yes Wound debrided: sub metatarsal head Laterality: Right Wound Grade/Stage: grade 1 Type of Debridement: Excisional debridement Anesthesia Used: 4% Lidocaine Solution Depth: in the subcutaneous layer Percentage of wound debrided: 100 Instrument Used: #15 blade Tissue Removed: devitalized subcutaneous, fibrous, biofilm, slough Severity: Fat Layer Exposed Amount of bleeding with debridement: Mild Bleeding Controlled with: Pressure Patient tolerated procedure well - Additional Wound Wound debrided: below knee amputation site Laterality: Left Wound Grade/Stage: grade 1 Type of Debridement: Excisional debridement Anesthesia Used: 4% Lidocaine Solution Depth: in the subcutaneous layer Percentage of wound debrided: 100 Instrument Used: #15 blade Tissue Removed: devitalized subcutaneous, fibrous, biofilm, slough Severity: Fat Layer Exposed Amount of bleeding with debridement: Mild Bleeding Controlled with: Pressure Patient tolerated procedure: Patient tolerated procedure well Assessment/Plan Active Problems Hammer toe of right foot (Chronic) Type 2 diabetes mellitus with diabetic polyneuropathy (Chronic) Ulcer of right lower extremity with fat layer exposed (Chronic) Chronic ulcer of left foot with fat layer exposed (Chronic) Assessment: Right leg ulcer with fat layer exposed. Left foot ulcer with fat layer exposed. Right below-knee amputation. Left Hammer digit syndrome. Peripheral vascular disease status post stenting to the popliteal artery on the right lower extremity. Diabetes with peripheral neuropathy. Malnutrition. Delayed healing. History of drug abuse. Smoker Plan: I reviewed and discussed his plan today. Debridement was performed as noted in the clinical panel to bilateral lower extremities. He has demonstrated recent improvement and I recommend continued advanced wound care products such as epi fix. The indication, purpose, anticipated healing and management were discussed in detail. He understands and elects to proceed at this time. Saline irrigation and skin prep was performed. The epi fix was applied according to standard protocol and was further secured in place with a wound veil and Steri-Strips. He tolerated this well and was advised to keep this clean and intact until follow-up next week. I recommend decreasing edema to the right lower extremity with standard tune up mechanic application. He does not have apparent left lower extremity edema. He has known peripheral vascular disease with right popliteal stenting performed by vascular surgeon, Dr. Cristina. 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 He followed up with Dr. Cristina who recommended monitoring this and he will return again in 6 months unless the wound has continued delayed healing or it worsens. To optimize healing by drinking two Fracisco supplements daily at his senior care facility. To keep weight off of his left foot with cam walker offloading Plastizote liner to the left lower extremity.This was replaced today with a felt offloading double layer to better offload the ulcer site. He was advised to keep his heel in proper position in the back of the cam walker to ensure this is lined up. Decrease tension to the right leg wound with compression dressing applied by nursing staff at his skilled facility. To continue to work with physical therapy at the senior care facility. I will continue to monitor him with serial foot x-rays and labs. His labs from May 11 were reviewed with a creatinine of 0.7 albumin of 3.3 white blood cell count of 7.1 he was reassured there are no clinical signs of infection noted today. I recommend he follows up in 1 week or call sooner if he has any questions or concerns. To DC smoking to also optimize healing.
[2017-07-05 13:58] VITALS: BP 105/64; PULSE 87; RESP 18; TEMP 37.3; BMI 56.7
--- NOTE | 2017-07-05 17:10 | PCM.WC.PN ---
(1) Chronic ulcer of left foot with fat layer exposed Status: Chronic Current Visit: Yes Code(s): L97.522 - Non-pressure chronic ulcer of other part of left foot with fat layer exposed (2) Hammer toe of right foot Status: Chronic Current Visit: Yes Code(s): M20.41 - Other hammer toe(s) (acquired), right foot (3) Type 2 diabetes mellitus with diabetic polyneuropathy Status: Chronic Current Visit: Yes Code(s): E11.42 - Type 2 diabetes mellitus with diabetic polyneuropathy (4) Ulcer of right lower extremity with fat layer exposed Status: Resolved Current Visit: Yes Code(s): L97.912 - Non-pressure chronic ulcer of unspecified part of right lower leg with fat layer exposed (5) Infection of left foot Status: Acute Current Visit: Yes Code(s): L08.9 - Local infection of the skin and subcutaneous tissue, unspecified Type of Wound Date of Service: 07/05/17 Chief Complaint: right leg ulcer. left foot ulcer History of Wound: This 52-year-old male with diabetes and peripheral vascular disease presents the wound care center for chronic right leg ulcer and his previous below-knee amputation stump site. He wears a cam walker boot with offloading Plastizote to the left foot. He resides at a [facility] facility. He denies fever, chill, nausea, vomiting. He had epi fix applied last week and did well. Progress of Wound: Healed right. Worse left - Physical Exam Vital Signs Temp Pulse Resp BP 99.1 F 87 18 105/64 07/05/17 13:58 07/05/17 13:58 07/05/17 13:58 07/05/17 13:58 General: Alert, Oriented x3, Cooperative Extremities: No cyanosis, Capillary Refill Less than 3 Seconds, No Calf Tenderness - Negative Germán and Cobian left, Diminished Peripheral Pulses, Edema - Mild bilateral lower extremities, - - Right below-knee amputation Skin: Ulcer/ Wound - No purulence, no erythema, strength, no odor, no viviana necrosis bilateral. The right below-knee amputation stump site has full epithelialization noted in his. The left plantar foot ulcer has a seropurulent drainage with some white discharge consistent with purulence or gouty tophi. Wound is significantly deteriorated and has increased in size. After debridement there is granular and minimal fibrous base noted. There is no capsular bone tissue noted. This status has deteriorated Wound Measurements and Assessment WC - Nurse 1 - General Ulcer Measurement Start: 06/28/17 08:23 Freq: Status: Active Protocol: Activity Type Activity Date Activity User E-Sign Co-Sign Detail Recorded Client Recorded Date Recorded By Document 07/05/17 13:58 DL [id number] 07/05/17 14:08 DL 07/05/17 13:58 Wound Center Nurse 1 [Ulcer Assessment] #2 L Plantar -Current Size (cm) - Length 1 -Current Size (cm) - Width 1 -Current Size (cm) - Depth 0.1 -Total Square Cm 1 -Photo Taken No -Exudate Amt Small (1-33%) -Exudate Type Sanguineous -Wound Margin Distinct, Outline Attached -Granulation Amt Medium (34-66%) -Granulation Quality [place] Red -Necrosis Amt Medium (34-66%) -Necrotic Tissue Type Adherent Slough -Structure Exposed N/A -Texture (Elena-wound Skin Appearance) Scarring -Moisture (Elena-wound Skin Appearance Dry/Scaly ) -Color (Elena-wound Skin Appearance) No Abnormality -Temperature (Elena-wound Skin No Abnormality Appearance) (Pt Warm) -Ulcer Cleansing Wound Cleanser -Foul Odor after Cleansing No -Anesthetic Used 4% Lidocaine Solution #1 R BKA Stump -Current Size (cm) - Length 0.1 -Current Size (cm) - Width 0.1 -Current Size (cm) - Depth 0.1 -Total Square Cm 0.01 -Exudate Amt None Present (0 %) -Wound Margin Flat & Intact -Granulation Amt Large (67-100%) -Granulation Quality Pale -Necrosis Amt Small (1-33%) -Necrotic Tissue Type Adherent Slough -Structure Exposed N/A -Texture (Elena-wound Skin Appearance) Scarring -Moisture (Elena-wound Skin Appearance Dry/Scaly ) -Color (Elena-wound Skin Appearance) No Abnormality -Temperature (Elena-wound Skin No Abnormality Appearance) (Pt Warm) -Ulcer Cleansing Wound Cleanser -Foul Odor after Cleansing No -Anesthetic Used 4% Lidocaine Solution [Edema Assessment] -Left Calf (cm) 35 -Left Ankle (cm) 21.5 WC - Nurse 2 - General Ulcer CM Notes Start: 06/28/17 08:23 Freq: Status: Active Protocol: Activity Type Activity Date Activity User E-Sign Co-Sign Detail Recorded Client Recorded Date Recorded By Document 07/05/17 15:17 [id number] 07/05/17 15:19 07/05/17 15:17 Wound Center Nurse 2 [Procedure/Treatment] #2 L Plantar -Time 15:18 -Correct Patient Yes -Correct Side, Site, Position Yes -Correct Procedure Yes -Procedure Performed Yes -Type of Procedure Debridement -Clinical Debridement Subcutaneous -Post Debridement Size (cm) - Length 1.2 -Post Debridement Size (cm) - Width 1.2 -Post Debridement Size (cm) - Depth 0.2 -Total Square Cm 1.44 -Wound/Ulcer Outcome Not Healed -Ulcer Cleansing Rinsed/ Irrigated with Saline -Foul Odor after Cleansing No -Bioengineered Tissue No -Bleeding Controlled with Pressure -Treatment Response Procedure Tolerated Well #1 R BKA Stump -Correct Patient No -Correct Side, Site, Position No -Correct Procedure No -Procedure Performed No -Post Debridement Size (cm) - Length 0 -Post Debridement Size (cm) - Width 0 -Post Debridement Size (cm) - Depth 0 -Total Square Cm 0 -Wound/Ulcer Outcome Healed- Epithelialized [See Physician Procedure note for Specifics] Pain Scale: 0-10 Numeric [Pain] -Is Patient Pain Free? Yes Musculoskeletal: No Tenderness to Palpation of Joints or Extremities, Muscle Wasting, - - Dorsal contraction of left toes with prominent metatarsal head Neurological: - - Lack of epicritic sensation light touch left lower extremity Psych/Mental Status: Normal Affect, Appropriate Debridement Note Post-Debridement Measurements/Treatment WC - Nurse 2 - General Ulcer CM Notes Start: 06/28/17 08:23 Freq: Status: Active Protocol: Activity Type Activity Date Activity User E-Sign Co-Sign Detail Recorded Client Recorded Date Recorded By Document 06/28/17 09:08 TM [id number] 06/28/17 09:12 Document 07/05/17 15:17 [id number] 07/05/17 15:19 06/28/17 07/05/17 09:08 15:17 Wound Center Nurse 2 #2 L Plantar -Time 09:09 15:18 -Correct Patient Yes Yes -Correct Side, Site, Position Yes Yes -Correct Procedure Yes Yes -Procedure Performed Yes Yes -Type of Procedure Debridement Debridement -Clinical Debridement Subcutaneous Subcutaneous -Post Debridement Size (cm) - Length 0.4 1.2 -Post Debridement Size (cm) - Width 0.3 1.2 -Post Debridement Size (cm) - Depth 0.2 0.2 -Total Square Cm 0.12 1.44 -Wound/Ulcer Outcome Not Healed Not Healed -Ulcer Cleansing Rinsed/ Rinsed/ Irrigated with Irrigated with Saline Saline -Foul Odor after Cleansing No No -Bioengineered Tissue Yes No -Type of bioengineered Tissue EPIFIX -Expiration Date 03/27/22 -Product Lot Number [id number] -Percent Used 50 -Saline Lot Number [id number] -Topical Lidocaine (%) 4 -Bleeding Controlled with Pressure Pressure -Treatment Response Procedure Procedure Tolerated Well Tolerated Well #1 R BKA Stump -Time 09:10 -Correct Patient Yes No -Correct Side, Site, Position Yes No -Correct Procedure Yes No -Procedure Performed Yes No -Type of Procedure Debridement -Clinical Debridement Subcutaneous -Post Debridement Size (cm) - Length 2.1 0 -Post Debridement Size (cm) - Width 2.9 0 -Post Debridement Size (cm) - Depth 0.1 0 -Total Square Cm 6.09 0 -Wound/Ulcer Outcome Not Healed Healed- Epithelialized -Ulcer Cleansing Rinsed/ Irrigated with Saline -Foul Odor after Cleansing No -Bioengineered Tissue Yes -Type of bioengineered Tissue EPIFIX -Expiration Date 03/27/22 -Product Lot Number [id number] -Percent Used 50 -Saline Lot Number [id number] -Topical Lidocaine (%) 4 -Bleeding Controlled with Pressure -Treatment Response Procedure Tolerated Well Pain Scale: 0-10 Numeric Is Patient Pain Free? Yes Yes Wound debrided: plantar foot Laterality: Left Wound Grade/Stage: grade 1 Type of Debridement: Excisional debridement Anesthesia Used: 4% Lidocaine Solution Depth: in the subcutaneous layer Percentage of wound debrided: 100 Instrument Used: #15 blade Tissue Removed: fibrous, devitalized subcutaneous, biofilm, slough Severity: Fat Layer Exposed Amount of bleeding with debridement: Mild Bleeding Controlled with: Pressure Patient tolerated procedure well Assessment/Plan Active Problems Hammer toe of right foot (Chronic) Infection of left foot (Acute) Type 2 diabetes mellitus with diabetic polyneuropathy (Chronic) Chronic ulcer of left foot with fat layer exposed (Chronic) Assessment: Right leg ulcer -healed. Left foot ulcer with fat layer exposed worsening status and rule out infection. Right below-knee amputation. Left Hammer digit syndrome. Peripheral vascular disease status post stenting to the popliteal artery on the right lower extremity. Diabetes with peripheral neuropathy. Malnutrition. Delayed healing. History of drug abuse. Smoker Plan: I reviewed and discussed his plan today. Debridement was performed as noted in the clinical panel to the left lower extremity. They deteriorated status as noted in a wound culture was obtained for aerobic and anaerobic. Saline irrigation. To change dressing daily with hydrogel with collagen. To continue to offload with cam walker and fell liner. I recommend decreasing edema to the right lower extremity with standard Tubigrip application. He does not have apparent left lower extremity edema. He has known peripheral vascular disease with right popliteal stenting performed by vascular surgeon, Dr. Cristina. 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 He has continued delayed healing and his status is recently worsened; I recommend follow-up with Dr. Cristina to seek intervention at this time. This scheduling will be assisted. To optimize healing by drinking two Fracisco supplements daily at his [facility] facility. He was advised to keep his heel in proper position in the back of the cam walker to ensure this is lined up. Now that his right lower extremity has healed I recommend progression with shrinkage dressings and progression into prosthetic. I recommend he follow-up with Dr. Gamez to complete his protocol. His labs from May 11 were reviewed with a creatinine of 0.7 albumin of 3.3 white blood cell count of 7.1 he was reassured there are no clinical signs of infection noted today. I recommend he follows up in 1 week or call sooner if he has any questions or concerns. To DC smoking to also optimize healing.
[2017-07-12 15:21] VITALS: BP 115/72; PULSE 96; RESP 16; TEMP 37.1; BMI 56.7
--- NOTE | 2017-07-12 16:31 | PN.PCM_ITS ---
(1) Chronic ulcer of left foot with fat layer exposed Status: Chronic Current Visit: Yes Code(s): L97.522 - Non-pressure chronic ulcer of other part of left foot with fat layer exposed (2) Hammer toe of right foot Status: Chronic Current Visit: Yes Code(s): M20.41 - Other hammer toe(s) ( acquired), right foot (3) Type 2 diabetes mellitus with diabetic polyneuropathy Status: Chronic Current Visit: Yes Code(s): E11.42 - Type 2 diabetes mellitus with diabetic polyneuropathy (4) Ulcer of right lower extremity with fat layer exposed Status: Resolved Current Visit: Yes Code(s): L97.912 - Non-pressure chronic ulcer of unspecified part of right lower leg with fat layer exposed (5) Infection of left foot Status: Acute Current Visit: Yes Code(s): L08.9 - Local infection of the skin and subcutaneous tissue, unspecified Type of Wound Date of Service: 07/13/17 Chief Complaint: right leg ulcer healed. left foot ulcer is tender History of Wound: This 52-year-old male with diabetes and peripheral vascular disease presents the wound care center for chronic right leg ulcer and his previous below-knee amputation stump site. He wears a cam walker boot with offloading Plastizote to the left foot. He resides at a [facility] facility. He denies fever, chill, nausea, vomiting. His right leg wound has healed and he did follow-up with Dr. Gamez, his orthopedic surgeon. His prosthetic device was ordered. His worsening pain to his left foot. He denies loss of appetite. He denies odor. He reports he did have his ordered lab work obtained in asking about the results from his prison facility. His with his friend today. Progress of Wound: healed right. left stable - Physical Exam Vital Signs Temp Pulse Resp BP 98.7 F 96 16 115/72 07/12/17 15:21 07/12/17 15:21 07/12/17 15:21 07/12/17 15:21 General: Alert, Oriented x3, Cooperative Extremities: No cyanosis, Capillary Refill Less than 3 Seconds, No Calf Tenderness - Negative Germán and Cobian sign left, Diminished Peripheral Pulses, Edema - Minimal bilateral lower extremities Skin: Ulcer/ Wound - No purulence, no erythema, streaking, no odor, no fluctuance on palpation left foot. The right lower extremity ulcer site is healed and there is full epithelialization and skin remodeling noted. The left foot wound and periwound is painful to palpate and this is a newer finding and concern that this is an early sign of infection. Wound Measurements and Assessment WC - Nurse 1 - General Ulcer Measurement Start: 06/28/17 08:23 Freq: Status: Active Protocol: Activity Type Activity Date Activity User E-Sign Co-Sign Detail Recorded Client Recorded Date Recorded By Document 07/12/17 15:21 MW [id number] 07/12/17 15:30 MW 07/12/17 15:21 Wound Center Nurse 1 [Ulcer Assessment] #2 L Plantar -Combined with other wound No -Current Size (cm) - Length 1.1 -Current Size (cm) - Width 0.6 -Current Size (cm) - Depth 0.3 -Total Square Cm 0.66 -Photo Taken No -Tunneling No -Undermining/Tunneling No -Circular Undermining No -Classification - Thickness Full Thickness without Exposed Support Structure -Exudate Amt Small (1-33%) -Exudate Type Serosanguineous -Wound Margin Thickened -Granulation Amt Medium (34-66%) -Granulation Quality [place] -Slough/Fibrin Yes -Necrosis Amt Large (67-100%) -Necrotic Tissue Type Adherent Slough -Structure Exposed N/A -Texture (Elena-wound Skin Appearance) Assessed Callus -Moisture (Elena-wound Skin Appearance Assessed ) -Color (Elena-wound Skin Appearance) Assessed -Temperature (Elena-wound Skin No Abnormality Appearance) (Pt Warm) -Tenderness on Palpation (Elena-wound No Skin Appearance) -Ulcer Cleansing Rinsed/ Irrigated with Saline -Foul Odor after Cleansing No -Anesthetic Used 5% Lidocaine Gel [Edema Assessment] -Lower Limb Edema Present No WC - Nurse 2 - General Ulcer CM Notes Start: 06/28/17 08:23 Freq: Status: Active Protocol: Activity Type Activity Date Activity User E-Sign Co-Sign Detail Recorded Client Recorded Date Recorded By Document 07/12/17 15:59 JF [id number] 07/12/17 16:00 JF 07/12/17 15:59 Wound Center Nurse 2 [Procedure/Treatment] #2 L Plantar -Time 15:59 -Correct Patient Yes -Correct Side, Site, Position Yes -Correct Procedure Yes -Procedure Performed Yes -Type of Procedure Debridement -Clinical Debridement Subcutaneous -Post Debridement Size (cm) - Length 1.2 -Post Debridement Size (cm) - Width 0.6 -Post Debridement Size (cm) - Depth 0.3 -Total Square Cm 0.72 -Wound/Ulcer Outcome Not Healed -Ulcer Cleansing Rinsed/ Irrigated with Saline -Foul Odor after Cleansing No -Bioengineered Tissue No -Bleeding Controlled with Pressure -Treatment Response Procedure Tolerated Well [See Physician Procedure note for Specifics] Pain Scale: 0-10 Numeric [Pain] -Is Patient Pain Free? Yes Musculoskeletal: No Tenderness to Palpation of Joints or Extremities, - - Prominent metatarsal head and dorsal contraction of lesser toes left foot. Below-knee amputation stump site is healed right lower extremity Neurological: - - Lack of epicritic sensation to light touch consistent with neuropathy left lower extremity Psych/Mental Status: Normal Affect, Appropriate Debridement Note Post-Debridement Measurements/Treatment WC - Nurse 2 - General Ulcer CM Notes Start: 06/28/17 08:23 Freq: Status: Active Protocol: Activity Type Activity Date Activity User E-Sign Co-Sign Detail Recorded Client Recorded Date Recorded By Document 06/28/17 09:08 [id number] 06/28/17 09:12 Document 07/05/17 15:17 [id number] 07/05/17 15:19 Document 07/12/17 15:59 [id number] 07/12/17 16:00 06/28/17 07/05/17 07/12/17 09:08 15:17 15:59 Wound Center Nurse 2 #2 L Plantar -Time 09:09 15:18 15:59 -Correct Patient Yes Yes Yes -Correct Side, Site, Position Yes Yes Yes -Correct Procedure Yes Yes Yes -Procedure Performed Yes Yes Yes -Type of Procedure Debridement Debridement Debridement -Clinical Debridement Subcutaneous Subcutaneous Subcutaneous -Post Debridement Size (cm) - Length 0.4 1.2 1.2 -Post Debridement Size (cm) - Width 0.3 1.2 0.6 -Post Debridement Size (cm) - Depth 0.2 0.2 0.3 -Total Square Cm 0.12 1.44 0.72 -Wound/Ulcer Outcome Not Healed Not Healed Not Healed -Ulcer Cleansing Rinsed/ Rinsed/ Rinsed/ Irrigated with Irrigated with Irrigated with Saline Saline Saline -Foul Odor after Cleansing No No No -Bioengineered Tissue Yes No No -Type of bioengineered Tissue EPIFIX -Expiration Date 03/27/22 -Product Lot Number [id number] -Percent Used 50 -Saline Lot Number [id number] -Topical Lidocaine (%) 4 -Bleeding Controlled with Pressure Pressure Pressure -Treatment Response Procedure Procedure Procedure Tolerated Well Tolerated Well Tolerated Well #1 R BKA Stump -Time 09:10 -Correct Patient Yes No -Correct Side, Site, Position Yes No -Correct Procedure Yes No -Procedure Performed Yes No -Type of Procedure Debridement -Clinical Debridement Subcutaneous -Post Debridement Size (cm) - Length 2.1 0 -Post Debridement Size (cm) - Width 2.9 0 -Post Debridement Size (cm) - Depth 0.1 0 -Total Square Cm 6.09 0 -Wound/Ulcer Outcome Not Healed Healed- Epithelialized -Ulcer Cleansing Rinsed/ Irrigated with Saline -Foul Odor after Cleansing No -Bioengineered Tissue Yes -Type of bioengineered Tissue EPIFIX -Expiration Date 03/27/22 -Product Lot Number [id number] -Percent Used 50 -Saline Lot Number [id number] -Topical Lidocaine (%) 4 -Bleeding Controlled with Pressure -Treatment Response Procedure Tolerated Well Pain Scale: 0-10 Numeric Is Patient Pain Free? Yes Yes Yes Wound debrided: plantar foot Laterality: Left Wound Grade/Stage: grade 1 Type of Debridement: Excisional debridement Anesthesia Used: 4% Lidocaine Solution Depth: in the subcutaneous layer Percentage of wound debrided: 100 Instrument Used: #15 blade Tissue Removed: fibrous, devitalized subcutaneous, biofilm, slough Severity: Fat Layer Exposed Amount of bleeding with debridement: Mild Bleeding Controlled with: Pressure Patient tolerated procedure well Assessment/Plan Active Problems Hammer toe of right foot (Chronic) Infection of left foot (Acute) Type 2 diabetes mellitus with diabetic polyneuropathy (Chronic) Chronic ulcer of left foot with fat layer exposed (Chronic) Assessment: Right leg ulcer -remains healed. Left foot ulcer with fat layer ; infected. Right below-knee amputation. Left Hammer digit syndrome. Peripheral vascular disease status post stenting to the popliteal artery on the right lower extremity. Diabetes with peripheral neuropathy. Malnutrition. Delayed healing. History of drug abuse. Smoker Plan: I reviewed and discussed his plan today. Debridement was performed as noted in the clinical panel to the left lower extremity. They deteriorated status as noted in a wound culture was obtained for aerobic and anaerobic. This is reviewed with denisse. The report suggested this might be a skin contamination. Due to his progression of pain and stagnation wound healing I recommend treating this as an infection at this time. Penicillin allergy is noted. I provided a prescription today for Keflex and he is advised on proper use. Saline irrigation was performed. To change dressing daily with hydrogel with collagen. To continue to offload with cam walker and fell liner. I recommend decreasing edema to the right lower extremity with standard Tubigrip application. He does not have apparent left lower extremity edema. He has known peripheral vascular disease with right popliteal stenting performed by vascular surgeon, Dr. Cristina. 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 He has continued delayed healing and his status is recently worsened; I recommend follow-up with Dr. Cristina to seek intervention at this time. He is scheduled for follow-up. To optimize healing by drinking two Fracisco supplements daily at his prison facility. He was advised to keep his heel in proper position in the back of the cam walker to ensure this is lined up. Now that his right lower extremity has healed I recommend progression with shrinkage dressings and progression into prosthetic. This order was provided by Dr. Gamez during his last follow-up visit. His labs were requested from his prison facility and reviewed as the following from July 06: White blood cell count 8.2 protein 6.3, creatinine 0.8 uric acid 7.0 sed rate 25 and C -reactive protein 6.6. These lab trends will be monitored. His last hemoglobin A1c was 6.4% on May 29, 2017. Foot x-rays will also need to be repeated in the near future due to the chronicity to the wound and his recent deterioration. I recommend he follows up in 1 week or call sooner if he has any questions or concerns. To DC smoking to also optimize healing.
[2017-07-19 10:43] VITALS: BP 103/58; PULSE 79; RESP 18; TEMP 36.9; BMI 56.7
--- NOTE | 2017-07-19 12:03 | PCM.WC.PN ---
(1) Chronic ulcer of left foot with fat layer exposed Status: Chronic Current Visit: Yes Code(s): L97.522 - Non-pressure chronic ulcer of other part of left foot with fat layer exposed (2) Hammer toe of right foot Status: Chronic Current Visit: Yes Code(s): M20.41 - Other hammer toe(s) (acquired), right foot (3) Type 2 diabetes mellitus with diabetic polyneuropathy Status: Chronic Current Visit: Yes Code(s): E11.42 - Type 2 diabetes mellitus with diabetic polyneuropathy (4) Ulcer of right lower extremity with fat layer exposed Status: Resolved Current Visit: Yes Code(s): L97.912 - Non-pressure chronic ulcer of unspecified part of right lower leg with fat layer exposed (5) Infection of left foot Status: Resolved Current Visit: Yes Code(s): L08.9 - Local infection of the skin and subcutaneous tissue, unspecified (6) PAD (peripheral artery disease) Status: Chronic Current Visit: Yes Code(s): I73.9 - Peripheral vascular disease, unspecified Type of Wound Date of Service: 07/21/17 Chief Complaint: left foot ulcer History of Wound: This 52-year-old male with diabetes and peripheral vascular disease presents the wound care center for chronic right leg ulcer and his previous below-knee amputation stump site. He wears a cam walker boot with offloading Plastizote to the left foot. He resides at a assisted facility. He denies fever, chill, nausea, vomiting. He denies loss of appetite. He denies odor. He did recently see Dr. Cristina with vascular surgery who plans on doing intervention within the next week. Progress of Wound: left stable - Physical Exam Vital Signs Temp Pulse Resp BP 98.4 F 79 18 103/58 L 07/19/17 10:43 07/19/17 10:43 07/19/17 10:43 07/19/17 10:43 General: Alert, Oriented x3, Cooperative Extremities: No cyanosis, No edema, Capillary Refill Less than 3 Seconds, No Calf Tenderness - Negative Germán and Cobian sign left lower extremity, Diminished Peripheral Pulses, Tenderness - Decreased pain with wound manipulation of plantar left foot Skin: Ulcer/ Wound - No purulence, no erythema, streaking, no odor, no acute signs of infection. Periwound inflammation has diminished over this past week while he is been taking antibiotics. His skin is very atrophic and hairless left Wound Measurements and Assessment WC - Nurse 1 - General Ulcer Measurement Start: 06/28/17 08:23 Freq: Status: Active Protocol: Activity Type Activity Date Activity User E-Sign Co-Sign Detail Recorded Client Recorded Date Recorded By Document 07/19/17 10:43 [id number] 07/19/17 10:47 07/19/17 10:43 Wound Center Nurse 1 [Ulcer Assessment] #2 L Plantar -Combined with other wound No -Current Size (cm) - Length 0.9 -Current Size (cm) - Width 0.6 -Current Size (cm) - Depth 0.2 -Total Square Cm 0.54 -Photo Taken No -Epithelialization Small 1-33% -Tunneling No -Undermining/Tunneling No -Circular Undermining No -Exudate Amt Small (1-33%) -Exudate Type Serosanguineous -Wound Margin Flat & Intact -Granulation Amt Large (67-100%) -Granulation Quality Red -Slough/Fibrin Yes -Necrosis Amt Medium (34-66%) -Necrotic Tissue Type Adherent Slough -Structure Exposed N/A -Texture (Elena-wound Skin Appearance) Assessed Callus -Moisture (Elena-wound Skin Appearance Assessed ) Dry/Scaly -Color (Elena-wound Skin Appearance) Assessed -Temperature (Elena-wound Skin No Abnormality Appearance) (Pt Warm) -Tenderness on Palpation (Elnea-wound No Skin Appearance) -Ulcer Cleansing Rinsed/ Irrigated with Saline -Foul Odor after Cleansing No -Anesthetic Used 5% Lidocaine Gel [Edema Assessment] -Lower Limb Edema Present No -Left Calf (cm) 35.4 -Left Ankle (cm) 22.5 WC - Nurse 2 - General Ulcer CM Notes Start: 06/28/17 08:23 Freq: Status: Active Protocol: Activity Type Activity Date Activity User E-Sign Co-Sign Detail Recorded Client Recorded Date Recorded By Document 07/19/17 11:51 [id number] 07/19/17 11:52 07/19/17 11:51 Wound Center Nurse 2 [Procedure/Treatment] #2 L Plantar -Time 11:51 -Correct Patient Yes -Correct Side, Site, Position Yes -Correct Procedure Yes -Procedure Performed Yes -Type of Procedure Debridement -Clinical Debridement Subcutaneous -Post Debridement Size (cm) - Length 1.0 -Post Debridement Size (cm) - Width 0.6 -Post Debridement Size (cm) - Depth 0.2 -Total Square Cm 0.60 -Wound/Ulcer Outcome Not Healed -Ulcer Cleansing Rinsed/ Irrigated with Saline -Foul Odor after Cleansing No -Bioengineered Tissue No -Bleeding Controlled with Pressure -Treatment Response Procedure Tolerated Well [See Physician Procedure note for Specifics] Pain Scale: 0-10 Numeric [Pain] -Is Patient Pain Free? Yes Musculoskeletal: No Tenderness to Palpation of Joints or Extremities, Muscle Wasting, - - Dorsal contraction of lesser digits on left with prominent metatarsal heads are noted. There is a right below-knee amputation stump site which is now healed. Neurological: - - Lack of epicritic sensation light touch left lower extremity Psych/Mental Status: Normal Affect, Appropriate Debridement Note Post-Debridement Measurements/Treatment WC - Nurse 2 - General Ulcer CM Notes Start: 06/28/17 08:23 Freq: Status: Active Protocol: Activity Type Activity Date Activity User E-Sign Co-Sign Detail Recorded Client Recorded Date Recorded By Document 06/28/17 09:08 [id number] 06/28/17 09:12 Document 07/05/17 15:17 [id number] 07/05/17 15:19 Document 07/12/17 15:59 [id number] 07/12/17 16:00 Document 07/19/17 11:51 [id number] 07/19/17 11:52 06/28/17 07/05/17 07/12/17 09:08 15:17 15:59 Wound Center Nurse 2 #2 L Plantar -Time 09:09 15:18 15:59 -Correct Patient Yes Yes Yes -Correct Side, Site, Position Yes Yes Yes -Correct Procedure Yes Yes Yes -Procedure Performed Yes Yes Yes -Type of Procedure Debridement Debridement Debridement -Clinical Debridement Subcutaneous Subcutaneous Subcutaneous -Post Debridement Size (cm) - Length 0.4 1.2 1.2 -Post Debridement Size (cm) - Width 0.3 1.2 0.6 -Post Debridement Size (cm) - Depth 0.2 0.2 0.3 -Total Square Cm 0.12 1.44 0.72 -Wound/Ulcer Outcome Not Healed Not Healed Not Healed -Ulcer Cleansing Rinsed/ Rinsed/ Rinsed/ Irrigated with Irrigated with Irrigated with Saline Saline Saline -Foul Odor after Cleansing No No No -Bioengineered Tissue Yes No No -Type of bioengineered Tissue EPIFIX -Expiration Date 03/27/22 -Product Lot Number [id number] -Percent Used 50 -Saline Lot Number [id number] -Topical Lidocaine (%) 4 -Bleeding Controlled with Pressure Pressure Pressure -Treatment Response Procedure Procedure Procedure Tolerated Well Tolerated Well Tolerated Well #1 R BKA Stump -Time 09:10 -Correct Patient Yes No -Correct Side, Site, Position Yes No -Correct Procedure Yes No -Procedure Performed Yes No -Type of Procedure Debridement -Clinical Debridement Subcutaneous -Post Debridement Size (cm) - Length 2.1 0 -Post Debridement Size (cm) - Width 2.9 0 -Post Debridement Size (cm) - Depth 0.1 0 -Total Square Cm 6.09 0 -Wound/Ulcer Outcome Not Healed Healed- Epithelialized -Ulcer Cleansing Rinsed/ Irrigated with Saline -Foul Odor after Cleansing No -Bioengineered Tissue Yes -Type of bioengineered Tissue EPIFIX -Expiration Date 03/27/22 -Product Lot Number [id number] -Percent Used 50 -Saline Lot Number [id number] -Topical Lidocaine (%) 4 -Bleeding Controlled with Pressure -Treatment Response Procedure Tolerated Well Pain Scale: 0-10 Numeric Is Patient Pain Free? Yes Yes Yes 07/19/17 11:51 Wound Center Nurse 2 #2 L Plantar -Time 11:51 -Correct Patient Yes -Correct Side, Site, Position Yes -Correct Procedure Yes -Procedure Performed Yes -Type of Procedure Debridement -Clinical Debridement Subcutaneous -Post Debridement Size (cm) - Length 1.0 -Post Debridement Size (cm) - Width 0.6 -Post Debridement Size (cm) - Depth 0.2 -Total Square Cm 0.60 -Wound/Ulcer Outcome Not Healed -Ulcer Cleansing Rinsed/ Irrigated with Saline -Foul Odor after Cleansing No -Bioengineered Tissue No -Type of bioengineered Tissue -Expiration Date -Product Lot Number -Percent Used -Saline Lot Number -Topical Lidocaine (%) -Bleeding Controlled with Pressure -Treatment Response Procedure Tolerated Well #1 R BKA Stump -Time -Correct Patient -Correct Side, Site, Position -Correct Procedure -Procedure Performed -Type of Procedure -Clinical Debridement -Post Debridement Size (cm) - Length -Post Debridement Size (cm) - Width -Post Debridement Size (cm) - Depth -Total Square Cm -Wound/Ulcer Outcome -Ulcer Cleansing -Foul Odor after Cleansing -Bioengineered Tissue -Type of bioengineered Tissue -Expiration Date -Product Lot Number -Percent Used -Saline Lot Number -Topical Lidocaine (%) -Bleeding Controlled with -Treatment Response Pain Scale: 0-10 Numeric Is Patient Pain Free? Yes Wound debrided: plantar forefoot Laterality: Left Wound Grade/Stage: grade 1 Type of Debridement: Excisional debridement Anesthesia Used: 5% Lidocaine Gel Depth: in the subcutaneous layer Percentage of wound debrided: 100 Instrument Used: #15 blade Tissue Removed: fibrous, devitalized subcutaneous, biofilm, slough Severity: Fat Layer Exposed Amount of bleeding with debridement: Mild Bleeding Controlled with: Pressure Patient tolerated procedure well Assessment/Plan Active Problems Hammer toe of right foot (Chronic) Type 2 diabetes mellitus with diabetic polyneuropathy (Chronic) PAD (peripheral artery disease) (Chronic) Chronic ulcer of left foot with fat layer exposed (Chronic) Assessment: Right leg ulcer -remains healed. Left foot ulcer with fat layer ; infection is resolving well. Right below-knee amputation. Left Hammer digit syndrome. Peripheral vascular disease status post stenting to the popliteal artery on the right lower extremity. Diabetes with peripheral neuropathy. Malnutrition. Delayed healing. History of drug abuse. Smoker Plan: I reviewed and discussed his plan today. Debridement was performed as noted in the clinical panel to the left lower extremity. His local signs of mild infection and inflammation have resolved this past week and it is noted he has been taking Keflex. Saline irrigation was performed. To change dressing daily with hydrogel with collagen this upcoming week. To continue to offload with cam walker and fell liner. I recommend decreasing edema to the right lower extremity with standard Tubigrip application. He does not have apparent left lower extremity edema. He has known peripheral vascular disease with right popliteal stenting performed by vascular surgeon, Dr. Cristina. 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 He did have a vascular reconsultation intervention is planned within the next week per the patient to optimize healing and for limb salvage. To optimize healing by drinking two Fracisco supplements daily at his assisted facility. He was advised to keep his heel in proper position in the back of the cam walker to ensure this is lined up. Now that his right lower extremity has healed I recommend progression with shrinkage dressings and progression into prosthetic. This order was provided by Dr. Gamez. His labs were requested from his assisted facility and reviewed as the following from July 06: White blood cell count 8.2 protein 6.3, creatinine 0.8 uric acid 7.0 sed rate 25 and C-reactive protein 6.6. These lab trends will be monitored. His last hemoglobin A1c was 6.4% on May 29, 2017. Foot x-rays will also need to be repeated in the near future due to the chronicity to the wound and his recent deterioration. I recommend he follows up in 1 week or call sooner if he has any questions or concerns. To DC smoking to also optimize healing.
== END 2017-07-24 23:59 ==
LOC: WC 10:30
PROVIDERS: Visit Provider Podiatrist
DX: E11.622 Type 2 diabetes mellitus with other skin ulcer (principal); E11.42 Type 2 diabetes mellitus with diabetic polyneuropathy; M20.41 Other hammer toe(s) (acquired), right foot; E11.621 Type 2 diabetes mellitus with foot ulcer; L97.912 Non-pressure chronic ulcer of unspecified part of right lower leg with fat layer exposed; L97.522 Non-pressure chronic ulcer of other part of left foot with fat layer exposed; Z89.511 Acquired absence of right leg below knee; E11.51 Type 2 diabetes mellitus with diabetic peripheral angiopathy without gangrene; F17.200 Nicotine dependence, unspecified, uncomplicated; R60.0 Localized edema; R09.89 Other specified symptoms and signs involving the circulatory and respiratory systems
CPT/HCPCS: 11042; 15271; 15275; 87070; 87075; 87077; 87186; 87205; Q4131

== ENCOUNTER 2017-08-23 11:00 | Outpatient (RCR) | payer MEDICAID, SELFPAY ==
[2017-07-25 00:37] VITALS: BP 121/84; PULSE 79; RESP 18; TEMP 36.9; BMI 56.7
[2017-07-26 10:51] VITALS: BP 129/69; PULSE 90; RESP 18; TEMP 37.2
--- NOTE | 2017-07-26 13:05 | PN.PCM_ITS ---
(1) Chronic ulcer of left foot with fat layer exposed Status: Chronic Current Visit: Yes Code(s): L97.522 - Non-pressure chronic ulcer of other part of left foot with fat layer exposed (2) Hammer toe of left foot Status: Chronic Current Visit: Yes Code(s): M20.42 - Other hammer toe(s) ( acquired), left foot (3) History of right below knee amputation Status: Chronic Current Visit: Yes Code(s): Z89.511 - Acquired absence of right leg below knee (4) Type 2 diabetes mellitus with diabetic polyneuropathy Status: Chronic Current Visit: Yes Code(s): E11.42 - Type 2 diabetes mellitus with diabetic polyneuropathy (5) PAD (peripheral artery disease) Status: Chronic Current Visit: Yes Code(s): I73.9 - Peripheral vascular disease, unspecified Type of Wound Date of Service: 07/26/17 Chief Complaint: left foot ulcer History of Wound: This 52-year-old male with diabetes and peripheral vascular disease presents the wound care center for chronic right leg ulcer and his previous below-knee amputation stump site. He wears a cam walker boot with offloading Plastizote to the left foot. He resides at a long-term facility. He denies fever, chill, nausea, vomiting. He denies loss of appetite. He denies odor. He did recently see Dr. Cristina with vascular surgery who plans on doing intervention next Monday to open his left popliteal artery. Progress of Wound: left stable - Physical Exam Vital Signs Temp Pulse Resp BP 98.9 F 90 18 129/69 H 07/26/17 10:51 07/26/17 10:51 07/26/17 10:51 07/26/17 10:51 General: Alert, Oriented x3, Cooperative Extremities: No cyanosis, Capillary Refill Less than 3 Seconds, No Calf Tenderness, Diminished Peripheral Pulses, - - digital contraction left foot Skin: Ulcer/ Wound - no purulence, no erythema, no infection, no necrosis noted , - - atrophic skin Wound Measurements and Assessment WC - Nurse 1 - General Ulcer Measurement Start: 07/26/17 10:51 Freq: Status: Active Protocol: Activity Type Activity Date Activity User E-Sign Co-Sign Detail Recorded Client Recorded Date Recorded By Document 07/26/17 10:51 RB [id number] 07/26/17 11:02 RB 07/26/17 10:51 Wound Center Nurse 1 [Ulcer Assessment] #2 L Plantar -Combined with other wound No -Current Size (cm) - Length 0.9 -Current Size (cm) - Width 0.6 -Current Size (cm) - Depth 0.3 -Total Square Cm 0.54 -Photo Taken No -Tunneling No -Undermining/Tunneling Yes -Undermining/Tunneling Starts (O' 12 clock) -Undermining/Tunneling Ends (O'clock) 12 -Maximum Distance (cm) 0.2 -Circular Undermining Yes -Classification - Thickness Full Thickness without Exposed Support Structure -Exudate Amt Small (1-33%) -Exudate Type Serosanguineous -Wound Margin Thickened -Granulation Amt Medium (34-66%) -Granulation Quality [place] -Slough/Fibrin Yes -Necrosis Amt Small (1-33%) -Necrotic Tissue Type Adherent Slough -Structure Exposed N/A -Texture (Elena-wound Skin Appearance) Assessed Callus -Moisture (Elena-wound Skin Appearance Assessed ) -Color (Elena-wound Skin Appearance) Assessed -Temperature (Elena-wound Skin No Abnormality Appearance) (Pt Warm) -Tenderness on Palpation (Elena-wound No Skin Appearance) -Ulcer Cleansing Rinsed/ Irrigated with Saline -Foul Odor after Cleansing No -Anesthetic Used 5% Lidocaine Gel WC - Nurse 2 - General Ulcer CM Notes Start: 07/26/17 10:51 Freq: Status: Active Protocol: Activity Type Activity Date Activity User E-Sign Co-Sign Detail Recorded Client Recorded Date Recorded By Document 07/26/17 11:19 [email or web address] [id number] 07/26/17 11:21 ALONDRA 07/26/17 11:19 Wound Center Nurse 2 [Procedure/Treatment] -Time 11:20 -Correct Patient Yes -Correct Side, Site, Position Yes -Correct Procedure Yes -Procedure Performed Yes -Type of Procedure Debridement -Clinical Debridement Subcutaneous -Post Debridement Size (cm) - Length 1.0 -Post Debridement Size (cm) - Width 0.6 -Post Debridement Size (cm) - Depth 0.3 -Total Square Cm 0.60 -Wound/Ulcer Outcome Not Healed -Ulcer Cleansing Rinsed/ Irrigated with Saline -Foul Odor after Cleansing No -Bioengineered Tissue No -Type of bioengineered Tissue EPIFIX -Expiration Date 03/27/22 -Product Lot Number [id number] -Percent Used 100 -Saline Lot Number [id number] -Bleeding Controlled with Pressure -Treatment Response Procedure Tolerated Well [See Physician Procedure note for Specifics] Pain Scale: 0-10 Numeric [Pain] -Is Patient Pain Free? Yes Musculoskeletal: No Tenderness to Palpation of Joints or Extremities, Muscle Wasting Neurological: - - lack of epicritic sensation via light touch left foot Psych/Mental Status: Normal Affect, Appropriate Debridement Note Post-Debridement Measurements/Treatment WC - Nurse 2 - General Ulcer CM Notes Start: 07/26/17 10:51 Freq: Status: Active Protocol: Activity Type Activity Date Activity User E-Sign Co-Sign Detail Recorded Client Recorded Date Recorded By Document 07/26/17 11:19 [email or web address] [id number] 07/26/17 11:21 ALONDRA 07/26/17 11:19 Wound Center Nurse 2 #2 L Plantar -Time 11:20 -Correct Patient Yes -Correct Side, Site, Position Yes -Correct Procedure Yes -Procedure Performed Yes -Type of Procedure Debridement -Clinical Debridement Subcutaneous -Post Debridement Size (cm) - Length 1.0 -Post Debridement Size (cm) - Width 0.6 -Post Debridement Size (cm) - Depth 0.3 -Total Square Cm 0.60 -Wound/Ulcer Outcome Not Healed -Ulcer Cleansing Rinsed/ Irrigated with Saline -Foul Odor after Cleansing No -Bioengineered Tissue No -Type of bioengineered Tissue EPIFIX -Expiration Date 03/27/22 -Product Lot Number [id number] -Percent Used 100 -Saline Lot Number [id number] -Bleeding Controlled with Pressure -Treatment Response Procedure Tolerated Well Pain Scale: 0-10 Numeric Is Patient Pain Free? Yes Wound debrided: plantar metatarsal head Laterality: Left Wound Grade/Stage: grade 1 Type of Debridement: Excisional debridement Anesthesia Used: 4% Lidocaine Solution Depth: in the subcutaneous layer Percentage of wound debrided: 100 Instrument Used: #15 blade Tissue Removed: fibrous, devitalized subcutaneous, biofilm, slough Severity: Fat Layer Exposed Amount of bleeding with debridement: Mild Bleeding Controlled with: Pressure Patient tolerated procedure well Assessment/Plan Active Problems History of right below knee amputation (Chronic) Hammer toe of left foot (Chronic) Type 2 diabetes mellitus with diabetic polyneuropathy (Chronic) PAD (peripheral artery disease) (Chronic) Chronic ulcer of left foot with fat layer exposed (Chronic) Assessment: Left foot ulcer with fat layer ; infection resolved. Right below- knee amputation. Left Hammer digit syndrome. Peripheral vascular disease status post stenting to the popliteal artery on the right lower extremity. Diabetes with peripheral neuropathy. Malnutrition. Delayed healing. History of drug abuse. Smoker Plan: I reviewed and discussed his plan today. Debridement was performed as noted in the clinical panel to the left lower extremity. His local signs of mild infection and inflammation have resolved this past week and it is noted he has been taking Keflex. Saline irrigation was performed. Epifix, advanced wound care product was applied today after verbal consent. the indications, purpose and anticipated healing course were discussed. This was secured with steri strips and a wound veil. To continue to offload with cam walker and felt liner. I recommend decreasing edema to the right lower extremity with standard Tubigrip application. He does not have apparent left lower extremity edema. He has known peripheral vascular disease with right popliteal stenting performed by vascular surgeon, Dr. Cristina. 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 To optimize healing by drinking two Fracisco supplements daily at his long-term facility. He was advised to keep his heel in proper position in the back of the cam walker to ensure this is lined up. Now that his right lower extremity has healed I recommend progression with shrinkage dressings and progression into prosthetic. This order was provided by Dr. Gamez. His labs were requested from his long-term facility and reviewed as the following from July 06: White blood cell count 8.2 protein 6.3 , creatinine 0.8 uric acid 7.0 sed rate 25 and C-reactive protein 6.6. These lab trends will be monitored. His last hemoglobin A1c was 6.4% on May 29, 2017. I recommend he follows up in 1 week or call sooner if he has any questions or concerns; a wound center physician will be covering next week. To DC smoking to also optimize healing.
[2017-08-09 09:55] VITALS: BP 110/63; PULSE 78; RESP 18; TEMP 37; BMI 56.7
--- NOTE | 2017-08-09 12:38 | PCM.WC.PN ---
(1) Chronic ulcer of left foot with fat layer exposed Status: Chronic Current Visit: Yes Code(s): L97.522 - Non-pressure chronic ulcer of other part of left foot with fat layer exposed (2) Hammer toe of left foot Status: Chronic Current Visit: Yes Code(s): M20.42 - Other hammer toe(s) (acquired), left foot (3) History of right below knee amputation Status: Chronic Current Visit: Yes Code(s): Z89.511 - Acquired absence of right leg below knee (4) Type 2 diabetes mellitus with diabetic polyneuropathy Status: Chronic Current Visit: Yes Code(s): E11.42 - Type 2 diabetes mellitus with diabetic polyneuropathy (5) PAD (peripheral artery disease) Status: Chronic Current Visit: Yes Code(s): I73.9 - Peripheral vascular disease, unspecified Type of Wound Date of Service: 08/09/17 Chief Complaint: left foot ulcer History of Wound: This 52-year-old male with diabetes and peripheral vascular disease presents the wound care center for chronic right leg ulcer and his previous below-knee amputation stump site. He wears a cam walker boot with offloading Plastizote to the left foot. He resides at a [place] [facility] facility and continues to work with physical therapy for balance, transfers, gait training, and offloading. He denies fever, chill, nausea, vomiting. He denies loss of appetite. He denies odor. He did recently see Dr. Cristina with vascular surgery who recently had a successful vascular surgery to restore popliteal flow into the posterior tibial artery and into the left foot. Progress of Wound: left stable - Physical Exam Vital Signs Temp Pulse Resp BP 98.6 F 78 18 110/63 08/09/17 09:55 08/09/17 09:55 08/09/17 09:55 08/09/17 09:55 General: Alert, Oriented x3, Cooperative Extremities: No cyanosis, Capillary Refill Less than 3 Seconds, No Calf Tenderness, Diminished Peripheral Pulses, Edema - Mild Skin: Ulcer/ Wound - No purulence, no erythema, streaking, no odor, no infection. There is no exposed deep tissue noted. His skin is hairless and atrophic left lower extremity Wound Measurements and Assessment WC - Nurse 1 - General Ulcer Measurement Start: 07/26/17 10:51 Freq: Status: Active Protocol: Activity Type Activity Date Activity User E-Sign Co-Sign Detail Recorded Client Recorded Date Recorded By Document 08/09/17 09:55 DL [id number] 08/09/17 10:04 DL 08/09/17 09:55 Wound Center Nurse 1 [Ulcer Assessment] #2 L Plantar -Current Size (cm) - Length 0.9 -Current Size (cm) - Width 0.6 -Current Size (cm) - Depth 0.2 -Total Square Cm 0.54 -Photo Taken No -Maximum Distance #2 (cm) 0.2 -Circular Undermining Yes -Exudate Amt Small (1-33%) -Exudate Type Serosanguineous -Wound Margin Thickened -Granulation Amt None Present (0 %) -Slough/Fibrin Yes -Necrosis Amt Large (67-100%) -Necrotic Tissue Type Adherent Slough -Structure Exposed N/A -Texture (Elena-wound Skin Appearance) Callus -Moisture (Elena-wound Skin Appearance Dry/Scaly ) -Color (Elena-wound Skin Appearance) No Abnormality -Temperature (Elena-wound Skin No Abnormality Appearance) (Pt Warm) -Tenderness on Palpation (Elena-wound Yes Skin Appearance) -Ulcer Cleansing Rinsed/ Irrigated with Saline -Foul Odor after Cleansing No -Anesthetic Used 4% Lidocaine Solution WC - Nurse 2 - General Ulcer CM Notes Start: 07/26/17 10:51 Freq: Status: Active Protocol: Activity Type Activity Date Activity User E-Sign Co-Sign Detail Recorded Client Recorded Date Recorded By Document 08/09/17 10:18 [id number] 08/09/17 10:20 08/09/17 10:18 Wound Center Nurse 2 [Procedure/Treatment] -Time 10:19 -Correct Patient Yes -Correct Side, Site, Position Yes -Correct Procedure Yes -Procedure Performed Yes -Type of Procedure Debridement -Clinical Debridement Subcutaneous -Post Debridement Size (cm) - Length 1.2 -Post Debridement Size (cm) - Width 1.2 -Post Debridement Size (cm) - Depth 0.2 -Total Square Cm 1.44 -Wound/Ulcer Outcome Not Healed -Ulcer Cleansing Rinsed/ Irrigated with Saline -Foul Odor after Cleansing No -Bioengineered Tissue Yes -Type of bioengineered Tissue EPIFIX -Expiration Date 05/25/22 -Product Lot Number [id number] -Percent Used 100 -Bleeding Controlled with Pressure -Treatment Response Procedure Tolerated Well [See Physician Procedure note for Specifics] Pain Scale: 0-10 Numeric [Pain] -Is Patient Pain Free? Yes Musculoskeletal: No Tenderness to Palpation of Joints or Extremities, Muscle Wasting, - - Left prominent metatarsal heads with dorsal contraction of lesser toes. Right below-knee amputation. Neurological: - - Lack of epicritic sensation light touch left Psych/Mental Status: Normal Affect, Appropriate Debridement Note Post-Debridement Measurements/Treatment WC - Nurse 2 - General Ulcer CM Notes Start: 07/26/17 10:51 Freq: Status: Active Protocol: Activity Type Activity Date Activity User E-Sign Co-Sign Detail Recorded Client Recorded Date Recorded By Document 07/26/17 11:19 [email or web address] 07/26/17 11:21 Document 08/09/17 10:18 [id number] 08/09/17 10:20 07/26/17 08/09/17 11:19 10:18 Wound Center Nurse 2 #2 L Plantar -Time 11:20 10:19 -Correct Patient Yes Yes -Correct Side, Site, Position Yes Yes -Correct Procedure Yes Yes -Procedure Performed Yes Yes -Type of Procedure Debridement Debridement -Clinical Debridement Subcutaneous Subcutaneous -Post Debridement Size (cm) - Length 1.0 1.2 -Post Debridement Size (cm) - Width 0.6 1.2 -Post Debridement Size (cm) - Depth 0.3 0.2 -Total Square Cm 0.60 1.44 -Wound/Ulcer Outcome Not Healed Not Healed -Ulcer Cleansing Rinsed/ Rinsed/ Irrigated with Irrigated with Saline Saline -Foul Odor after Cleansing No No -Bioengineered Tissue No Yes -Type of bioengineered Tissue EPIFIX EPIFIX -Expiration Date 03/27/22 05/25/22 -Product Lot Number [id number] -Percent Used 100 100 -Saline Lot Number [id number] -Bleeding Controlled with Pressure Pressure -Treatment Response Procedure Procedure Tolerated Well Tolerated Well Pain Scale: 0-10 Numeric Is Patient Pain Free? Yes Yes Wound debrided: plantar forefoot Laterality: Left Wound Grade/Stage: grade 1 Type of Debridement: Excisional debridement Anesthesia Used: 5% Lidocaine Gel Depth: in the subcutaneous layer Percentage of wound debrided: 100 Instrument Used: #15 blade Tissue Removed: fibrous, devitalized subcutaneous, biofilm, slough Severity: Fat Layer Exposed Amount of bleeding with debridement: Mild Bleeding Controlled with: Pressure Patient tolerated procedure well Assessment/Plan Active Problems History of right below knee amputation (Chronic) Hammer toe of left foot (Chronic) Type 2 diabetes mellitus with diabetic polyneuropathy (Chronic) PAD (peripheral artery disease) (Chronic) Chronic ulcer of left foot with fat layer exposed (Chronic) Assessment: Left foot ulcer with fat layer ; infection resolved. Right below-knee amputation. Left Hammer digit syndrome. Peripheral vascular disease status post stenting to the popliteal artery on the right lower extremity and recently the left lower extremity. Diabetes with peripheral neuropathy. Malnutrition. Delayed healing. History of drug abuse. Smoker Plan: I reviewed and discussed his plan today. Debridement was performed as noted in the clinical panel to the left lower extremity. He was reassured there are no signs of infection saline irrigation was performed. Epifix, advanced wound care product was applied today after verbal consent. the indications, purpose and anticipated healing course were discussed. This was secured with steri strips and a wound veil. To continue to offload with cam walker and felt liner. I recommend decreasing edema to the right lower extremity with standard Tubigrip application. He does not have apparent left lower extremity edema. He has known peripheral vascular disease with right popliteal stenting performed by vascular surgeon, Dr. Cristina. He also had recent left lower extremity popliteal stenting with successful perfusion through the posterior tibial artery into the left foot. Dr. Cristina contacted me to inform me of his current reperfusion. To optimize healing by drinking two Fracisco supplements daily at his [place] [facility] facility. He was advised to keep his heel in proper position in the back of the cam walker to ensure this is lined up. Now that his right lower extremity has healed I recommend progression with shrinkage dressings and progression into prosthetic. This order was provided by Dr. Gamez. His labs were requested from his [place] [facility] facility and reviewed as the following from July 06: White blood cell count 8.2 protein 6.3, creatinine 0.8 uric acid 7.0 sed rate 25 and C-reactive protein 6.6. These lab trends will be monitored. His last hemoglobin A1c was 6.4% on May 29, 2017. I recommend he follows up in 1 week or call sooner if he has any questions or concerns. To DC smoking to also optimize healing.
--- NOTE | 2017-08-09 12:43 | PN.PCM_ITS ---
(1) Chronic ulcer of left foot with fat layer exposed Status: Chronic Current Visit: Yes Code(s): L97.522 - Non-pressure chronic ulcer of other part of left foot with fat layer exposed (2) Hammer toe of left foot Status: Chronic Current Visit: Yes Code(s): M20.42 - Other hammer toe(s) ( acquired), left foot (3) History of right below knee amputation Status: Chronic Current Visit: Yes Code(s): Z89.511 - Acquired absence of right leg below knee (4) Type 2 diabetes mellitus with diabetic polyneuropathy Status: Chronic Current Visit: Yes Code(s): E11.42 - Type 2 diabetes mellitus with diabetic polyneuropathy (5) PAD (peripheral artery disease) Status: Chronic Current Visit: Yes Code(s): I73.9 - Peripheral vascular disease, unspecified Type of Wound Date of Service: 08/09/17 Chief Complaint: left foot ulcer History of Wound: This 52-year-old male with diabetes and peripheral vascular disease presents the wound care center for chronic right leg ulcer and his previous below-knee amputation stump site. He wears a cam walker boot with offloading Plastizote to the left foot. He resides at a halfway facility and continues to work with physical therapy for balance, transfers, gait training, and offloading. He denies fever, chill, nausea, vomiting. He denies loss of appetite. He denies odor. He did recently see Dr. Cristina with vascular surgery who recently had a successful vascular surgery to restore popliteal flow into the posterior tibial artery and into the left foot. Progress of Wound: left stable - Physical Exam Vital Signs Temp Pulse Resp BP 98.6 F 78 18 110/63 08/09/17 09:55 08/09/17 09:55 08/09/17 09:55 08/09/17 09:55 General: Alert, Oriented x3, Cooperative Extremities: No cyanosis, Capillary Refill Less than 3 Seconds, No Calf Tenderness, Diminished Peripheral Pulses, Edema - Mild Skin: Ulcer/ Wound - No purulence, no erythema, streaking, no odor, no infection. There is no exposed deep tissue noted. His skin is hairless and atrophic left lower extremity Wound Measurements and Assessment WC - Nurse 1 - General Ulcer Measurement Start: 07/26/17 10:51 Freq: Status: Active Protocol: Activity Type Activity Date Activity User E-Sign Co-Sign Detail Recorded Client Recorded Date Recorded By Document 08/09/17 09:55 DL [id number] 08/09/17 10:04 DL 08/09/17 09:55 Wound Center Nurse 1 [Ulcer Assessment] #2 L Plantar -Current Size (cm) - Length 0.9 -Current Size (cm) - Width 0.6 -Current Size (cm) - Depth 0.2 -Total Square Cm 0.54 -Photo Taken No -Maximum Distance #2 (cm) 0.2 -Circular Undermining Yes -Exudate Amt Small (1-33%) -Exudate Type Serosanguineous -Wound Margin Thickened -Granulation Amt None Present (0 %) -Slough/Fibrin Yes -Necrosis Amt Large (67-100%) -Necrotic Tissue Type Adherent Slough -Structure Exposed N/A -Texture (Elena-wound Skin Appearance) Callus -Moisture (Elena-wound Skin Appearance Dry/Scaly ) -Color (Elena-wound Skin Appearance) No Abnormality -Temperature (Eelna-wound Skin No Abnormality Appearance) (Pt Warm) -Tenderness on Palpation (Elena-wound Yes Skin Appearance) -Ulcer Cleansing Rinsed/ Irrigated with Saline -Foul Odor after Cleansing No -Anesthetic Used 4% Lidocaine Solution WC - Nurse 2 - General Ulcer CM Notes Start: 07/26/17 10:51 Freq: Status: Active Protocol: Activity Type Activity Date Activity User E-Sign Co-Sign Detail Recorded Client Recorded Date Recorded By Document 08/09/17 10:18 [id number] 08/09/17 10:20 08/09/17 10:18 Wound Center Nurse 2 [Procedure/Treatment] -Time 10:19 -Correct Patient Yes -Correct Side, Site, Position Yes -Correct Procedure Yes -Procedure Performed Yes -Type of Procedure Debridement -Clinical Debridement Subcutaneous -Post Debridement Size (cm) - Length 1.2 -Post Debridement Size (cm) - Width 1.2 -Post Debridement Size (cm) - Depth 0.2 -Total Square Cm 1.44 -Wound/Ulcer Outcome Not Healed -Ulcer Cleansing Rinsed/ Irrigated with Saline -Foul Odor after Cleansing No -Bioengineered Tissue Yes -Type of bioengineered Tissue EPIFIX -Expiration Date 05/25/22 -Product Lot Number [id number] -Percent Used 100 -Bleeding Controlled with Pressure -Treatment Response Procedure Tolerated Well [See Physician Procedure note for Specifics] Pain Scale: 0-10 Numeric [Pain] -Is Patient Pain Free? Yes Musculoskeletal: No Tenderness to Palpation of Joints or Extremities, Muscle Wasting, - - Left prominent metatarsal heads with dorsal contraction of lesser toes. Right below-knee amputation. Neurological: - - Lack of epicritic sensation light touch left Psych/Mental Status: Normal Affect, Appropriate Debridement Note Post-Debridement Measurements/Treatment WC - Nurse 2 - General Ulcer CM Notes Start: 07/26/17 10:51 Freq: Status: Active Protocol: Activity Type Activity Date Activity User E-Sign Co-Sign Detail Recorded Client Recorded Date Recorded By Document 07/26/17 11:19 [id number] 07/26/17 11:21 Document 08/09/17 10:18 [id number] 08/09/17 10:20 07/26/17 08/09/17 11:19 10:18 Wound Center Nurse 2 #2 L Plantar -Time 11:20 10:19 -Correct Patient Yes Yes -Correct Side, Site, Position Yes Yes -Correct Procedure Yes Yes -Procedure Performed Yes Yes -Type of Procedure Debridement Debridement -Clinical Debridement Subcutaneous Subcutaneous -Post Debridement Size (cm) - Length 1.0 1.2 -Post Debridement Size (cm) - Width 0.6 1.2 -Post Debridement Size (cm) - Depth 0.3 0.2 -Total Square Cm 0.60 1.44 -Wound/Ulcer Outcome Not Healed Not Healed -Ulcer Cleansing Rinsed/ Rinsed/ Irrigated with Irrigated with Saline Saline -Foul Odor after Cleansing No No -Bioengineered Tissue No Yes -Type of bioengineered Tissue EPIFIX EPIFIX -Expiration Date 03/27/22 05/25/22 -Product Lot Number [id number] -Percent Used 100 100 -Saline Lot Number [id number] -Bleeding Controlled with Pressure Pressure -Treatment Response Procedure Procedure Tolerated Well Tolerated Well Pain Scale: 0-10 Numeric Is Patient Pain Free? Yes Yes Wound debrided: plantar forefoot Laterality: Left Wound Grade/Stage: grade 1 Type of Debridement: Excisional debridement Anesthesia Used: 5% Lidocaine Gel Depth: in the subcutaneous layer Percentage of wound debrided: 100 Instrument Used: #15 blade Tissue Removed: fibrous, devitalized subcutaneous, biofilm, slough Severity: Fat Layer Exposed Amount of bleeding with debridement: Mild Bleeding Controlled with: Pressure Patient tolerated procedure well Assessment/Plan Active Problems History of right below knee amputation (Chronic) Hammer toe of left foot (Chronic) Type 2 diabetes mellitus with diabetic polyneuropathy (Chronic) PAD (peripheral artery disease) (Chronic) Chronic ulcer of left foot with fat layer exposed (Chronic) Assessment: Left foot ulcer with fat layer ; infection resolved. Right below- knee amputation. Left Hammer digit syndrome. Peripheral vascular disease status post stenting to the popliteal artery on the right lower extremity and recently the left lower extremity. Diabetes with peripheral neuropathy. Malnutrition. Delayed healing. History of drug abuse. Smoker Plan: I reviewed and discussed his plan today. Debridement was performed as noted in the clinical panel to the left lower extremity. He was reassured there are no signs of infection saline irrigation was performed. Epifix, advanced wound care product was applied today after verbal consent. the indications, purpose and anticipated healing course were discussed. This was secured with steri strips and a wound veil. To continue to offload with cam walker and felt liner. I recommend decreasing edema to the right lower extremity with standard Tubigrip application. He does not have apparent left lower extremity edema. He has known peripheral vascular disease with right popliteal stenting performed by vascular surgeon, Dr. Cristina. He also had recent left lower extremity popliteal stenting with successful perfusion through the posterior tibial artery into the left foot. Dr. Cristina contacted me to inform me of his current reperfusion. To optimize healing by drinking two Fracisco supplements daily at his halfway facility. He was advised to keep his heel in proper position in the back of the cam walker to ensure this is lined up. Now that his right lower extremity has healed I recommend progression with shrinkage dressings and progression into prosthetic. This order was provided by Dr. Gamez. His labs were requested from his halfway facility and reviewed as the following from July 06: White blood cell count 8.2 protein 6.3, creatinine 0.8 uric acid 7.0 sed rate 25 and C-reactive protein 6.6. These lab trends will be monitored. His last hemoglobin A1c was 6.4% on May 29, 2017. I recommend he follows up in 1 week or call sooner if he has any questions or concerns. To DC smoking to also optimize healing.
[2017-08-16 11:23] VITALS: BP 107/66; PULSE 72; RESP 18; TEMP 36.6; BMI 56.7
--- NOTE | 2017-08-16 11:41 | PN.PCM_ITS ---
(1) Chronic ulcer of left foot with fat layer exposed Status: Chronic Code(s): L97.522 - Non-pressure chronic ulcer of other part of left foot with fat layer exposed (2) Hammer toe of left foot Status: Chronic Code(s): M20.42 - Other hammer toe(s) (acquired), left foot (3) History of right below knee amputation Status: Chronic Code(s): Z89.511 - Acquired absence of right leg below knee (4) Type 2 diabetes mellitus with diabetic polyneuropathy Status: Chronic Code(s): E11.42 - Type 2 diabetes mellitus with diabetic polyneuropathy (5) PAD (peripheral artery disease) Status: Chronic Code(s): I73.9 - Peripheral vascular disease, unspecified Type of Wound Date of Service: 08/21/17 Chief Complaint: left foot ulcer History of Wound: This 52-year-old male with diabetes and peripheral vascular disease presents the wound care center for chronic right leg ulcer and his previous below-knee amputation stump site. He wears a cam walker boot with offloading Plastizote to the left foot. He resides at a care home facility and continues to work with physical therapy for balance, transfers, gait training, and offloading. He denies fever, chill, nausea, vomiting. He denies loss of appetite. He denies odor. He did recently see Dr. Cristina with vascular surgery who recently had a successful vascular surgery to restore popliteal flow into the posterior tibial artery and into the left foot. Progress of Wound: left improving - Physical Exam Vital Signs Temp Pulse Resp BP 97.8 F 72 18 107/66 08/16/17 11:23 08/16/17 11:23 08/16/17 11:23 08/16/17 11:23 General: Alert, Oriented x3, Cooperative Extremities: No cyanosis, Capillary Refill Less than 3 Seconds, No Calf Tenderness - Left lower extremity negative Germán and Cobian, Diminished Peripheral Pulses, - - Right below-knee amputation Skin: Ulcer/ Wound - No purulence, no erythema, swelling, no process. There is no capsular tissue layer exposed. His skin is atrophic Wound Measurements and Assessment WC - Nurse 1 - General Ulcer Measurement Start: 07/26/17 10:51 Freq: Status: Active Protocol: Activity Type Activity Date Activity User E-Sign Co-Sign Detail Recorded Client Recorded Date Recorded By Document 08/16/17 11:23 [id number] 08/16/17 11:27 08/16/17 11:23 Wound Center Nurse 1 [Ulcer Assessment] #2 L Plantar -Combined with other wound No -Current Size (cm) - Length 0.8 -Current Size (cm) - Width 0.3 -Current Size (cm) - Depth 0.3 -Total Square Cm 0.24 -Photo Taken No -Epithelialization Small 1-33% -Tunneling No -Undermining/Tunneling No -Circular Undermining No -Exudate Amt Small (1-33%) -Exudate Type Serosanguineous -Wound Margin Flat & Intact -Granulation Amt Medium (34-66%) -Granulation Quality Red -Slough/Fibrin Yes -Necrosis Amt Small (1-33%) -Necrotic Tissue Type Adherent Slough -Structure Exposed N/A -Texture (Elena-wound Skin Appearance) Assessed Callus -Moisture (Elena-wound Skin Appearance Assessed ) Dry/Scaly -Color (Elena-wound Skin Appearance) Assessed -Temperature (Elena-wound Skin No Abnormality Appearance) (Pt Warm) -Ulcer Cleansing Wound Cleanser -Foul Odor after Cleansing No -Anesthetic Used 4% Lidocaine Solution [Edema Assessment] -Lower Limb Edema Present Yes -Left Calf (cm) 34.8 -Left Ankle (cm) 23.3 WC - Nurse 2 - General Ulcer CM Notes Start: 07/26/17 10:51 Freq: Status: Active Protocol: Activity Type Activity Date Activity User E-Sign Co-Sign Detail Recorded Client Recorded Date Recorded By Document 08/16/17 11:36 [id number] 08/16/17 11:38 08/16/17 11:36 Wound Center Nurse 2 [Procedure/Treatment] #2 L Plantar -Time 11:37 -Correct Patient Yes -Correct Side, Site, Position Yes -Correct Procedure Yes -Procedure Performed Yes -Type of Procedure Debridement -Clinical Debridement Subcutaneous -Post Debridement Size (cm) - Length 1.2 -Post Debridement Size (cm) - Width 1.0 -Post Debridement Size (cm) - Depth 0.2 -Total Square Cm 1.20 -Wound/Ulcer Outcome Not Healed -Ulcer Cleansing Rinsed/ Irrigated with Saline -Foul Odor after Cleansing No -Bioengineered Tissue Yes -Type of bioengineered Tissue EPIFIX -Expiration Date 05/25/22 -Product Lot Number [id number] -Percent Used 100 -Saline Lot Number [id number] -Bleeding Controlled with Pressure -Treatment Response Procedure Tolerated Well [See Physician Procedure note for Specifics] Pain Scale: 0-10 Numeric [Pain] -Is Patient Pain Free? Yes Musculoskeletal: No Tenderness to Palpation of Joints or Extremities, Muscle Wasting Neurological: - - Lack of epicritic sensation light touch left lower extremity Psych/Mental Status: Normal Affect, Appropriate Debridement Note Post-Debridement Measurements/Treatment WC - Nurse 2 - General Ulcer CM Notes Start: 07/26/17 10:51 Freq: Status: Active Protocol: Activity Type Activity Date Activity User E-Sign Co-Sign Detail Recorded Client Recorded Date Recorded By Document 07/26/17 11:19 [id number] 07/26/17 11:21 Document 08/09/17 10:18 [id number] 08/09/17 10:20 Document 08/16/17 11:36 [id number] 08/16/17 11:38 07/26/17 08/09/17 08/16/17 11:19 10:18 11:36 Wound Center Nurse 2 #2 L Plantar -Time 11:20 10:19 11:37 -Correct Patient Yes Yes Yes -Correct Side, Site, Position Yes Yes Yes -Correct Procedure Yes Yes Yes -Procedure Performed Yes Yes Yes -Type of Procedure Debridement Debridement Debridement -Clinical Debridement Subcutaneous Subcutaneous Subcutaneous -Post Debridement Size (cm) - Length 1.0 1.2 1.2 -Post Debridement Size (cm) - Width 0.6 1.2 1.0 -Post Debridement Size (cm) - Depth 0.3 0.2 0.2 -Total Square Cm 0.60 1.44 1.20 -Wound/Ulcer Outcome Not Healed Not Healed Not Healed -Ulcer Cleansing Rinsed/ Rinsed/ Rinsed/ Irrigated with Irrigated with Irrigated with Saline Saline Saline -Foul Odor after Cleansing No No No -Bioengineered Tissue No Yes Yes -Type of bioengineered Tissue EPIFIX EPIFIX EPIFIX -Expiration Date 03/27/22 05/25/22 05/25/22 -Product Lot Number [id number] -Percent Used 100 100 100 -Saline Lot Number [id number] -Bleeding Controlled with Pressure Pressure Pressure -Treatment Response Procedure Procedure Procedure Tolerated Well Tolerated Well Tolerated Well Pain Scale: 0-10 Numeric Is Patient Pain Free? Yes Yes Yes Wound debrided: sub metatarsal head Laterality: Left Wound Grade/Stage: grade1 Type of Debridement: Excisional debridement Anesthesia Used: 5% Lidocaine Gel Depth: in the subcutaneous layer Percentage of wound debrided: 100 Instrument Used: #15 blade Tissue Removed: fibrous, devitalized subcutaneous, biofilm, slough Severity: Fat Layer Exposed Amount of bleeding with debridement: Mild Bleeding Controlled with: Pressure Patient tolerated procedure well Assessment/Plan Assessment: Left foot ulcer with fat layer; infection resolved. Right below- knee amputation. Left Hammer digit syndrome. Peripheral vascular disease status post stenting to the popliteal artery on the right lower extremity and recently the left lower extremity. Diabetes with peripheral neuropathy. Malnutrition. Delayed healing. History of drug abuse. Smoker Plan: I reviewed and discussed his plan today. Debridement was performed as noted in the clinical panel to the left lower extremity. He was reassured there are no signs of infection saline irrigation was performed. Epifix, advanced wound care product was applied today after verbal consent. the indications, purpose and anticipated healing course were discussed. This was secured with steri strips and a wound veil. To continue to offload with cam walker and felt liner. I recommend decreasing edema to the right lower extremity with standard Tubigrip application. He does not have apparent left lower extremity edema. He has known peripheral vascular disease with right popliteal stenting performed by vascular surgeon, Dr. Cristina. He also had recent left lower extremity popliteal stenting with successful perfusion through the posterior tibial artery into the left foot. Dr. Cristina contacted me to inform me of his current reperfusion. To optimize healing by drinking two Fracisco supplements daily at his care home facility. He was advised to keep his heel in proper position in the back of the cam walker to ensure this is lined up. Now that his right lower extremity has healed I recommend progression with shrinkage dressings and progression into prosthetic. This order was provided by Dr. Gamez. His labs were requested from his care home facility and reviewed as the following from July 06: White blood cell count 8.2 protein 6.3, creatinine 0.8 uric acid 7.0 sed rate 25 and C-reactive protein 6.6. These lab trends will be monitored. His last hemoglobin A1c was 6.4% on May 29, 2017. I recommend he follows up in 1 week or call sooner if he has any questions or concerns. To DC smoking to also optimize healing.
[2017-08-23 12:02] VITALS: BP 123/72; PULSE 74; RESP 18; TEMP 37.2; BMI 56.7
--- NOTE | 2017-08-23 13:15 | PN.PCM_ITS ---
(1) Ulcer of right lower extremity with fat layer exposed Status: Acute Current Visit: Yes Code(s): L97.912 - Non-pressure chronic ulcer of unspecified part of right lower leg with fat layer exposed (2) Chronic ulcer of left foot with fat layer exposed Status: Chronic Current Visit: Yes Code(s): L97.522 - Non-pressure chronic ulcer of other part of left foot with fat layer exposed (3) Hammer toe of left foot Status: Chronic Current Visit: Yes Code(s): M20.42 - Other hammer toe(s) ( acquired), left foot (4) History of right below knee amputation Status: Chronic Current Visit: Yes Code(s): Z89.511 - Acquired absence of right leg below knee (5) Type 2 diabetes mellitus with diabetic polyneuropathy Status: Chronic Current Visit: Yes Code(s): E11.42 - Type 2 diabetes mellitus with diabetic polyneuropathy (6) PAD (peripheral artery disease) Status: Chronic Current Visit: Yes Code(s): I73.9 - Peripheral vascular disease, unspecified Type of Wound Date of Service: 08/23/17 Chief Complaint: Right leg scab. left foot ulcer History of Wound: This 52-year-old male with diabetes and peripheral vascular disease presents the wound care center for chronic right leg ulcer and his previous below-knee amputation stump site. He wears a cam walker boot with offloading Plastizote to the left foot. He resides at a senior living facility and continues to work with physical therapy for balance, transfers, gait training, and offloading. He denies fever, chill, nausea, vomiting. He denies loss of appetite. He denies odor. He did recently see Dr. Cristina with vascular surgery who recently had a successful vascular surgery to restore popliteal flow into the posterior tibial artery and into the left foot. He noticed a scab on his right leg without any drainage week. He denies traumatic incident or illness. Progress of Wound: New right leg wound. left stable - Physical Exam Vital Signs Temp Pulse Resp BP 98.9 F 74 18 123/72 H 08/23/17 12:02 08/23/17 12:02 08/23/17 12:02 08/23/17 12:02 General: Alert, Oriented x3, Cooperative Extremities: No cyanosis, Capillary Refill Less than 3 Seconds, No Calf Tenderness - Left, Diminished Peripheral Pulses, Edema - Mild right, - - Below- knee amputation right Skin: Ulcer/ Wound - No purulence, no erythema, streaking, no odor, no flexion bilateral. Eschar removal of the right leg reveals a subcutaneous tissue exposed ulcer to the medial aspect. No deep tissue exposed bilateral, - - The skin is hairless and atrophic bilateral Wound Measurements and Assessment WC - Nurse 1 - General Ulcer Measurement Start: 07/26/17 10:51 Freq: Status: Active Protocol: Activity Type Activity Date Activity User E-Sign Co-Sign Detail Recorded Client Recorded Date Recorded By Document 08/23/17 12:02 RB [id number] 08/23/17 12:12 RB 08/23/17 12:02 Wound Center Nurse 1 [Ulcer Assessment] #2 L Plantar -Combined with other wound No -Current Size (cm) - Length 0.1 -Current Size (cm) - Width 0.1 -Current Size (cm) - Depth 0.1 -Total Square Cm 0.01 -Epithelialization Small 1-33% -Tunneling No -Undermining/Tunneling No -Circular Undermining No -Classification - Thickness Full Thickness without Exposed Support Structure -Exudate Amt Medium (34-66%) -Exudate Type Serosanguineous -Wound Margin Distinct, Outline Attached -Granulation Amt Large (67-100%) -Granulation Quality Red -Slough/Fibrin Yes -Necrosis Amt Small (1-33%) -Necrotic Tissue Type Adherent Slough -Structure Exposed N/A -Texture (Elena-wound Skin Appearance) Assessed Callus -Moisture (Elena-wound Skin Appearance Assessed ) -Color (Elena-wound Skin Appearance) Assessed -Temperature (Elena-wound Skin No Abnormality Appearance) (Pt Warm) -Tenderness on Palpation (Elena-wound No Skin Appearance) -Ulcer Cleansing Wound Cleanser -Foul Odor after Cleansing No -Anesthetic Used 5% Lidocaine Gel WC - Nurse 2 - General Ulcer CM Notes Start: 07/26/17 10:51 Freq: Status: Active Protocol: Activity Type Activity Date Activity User E-Sign Co-Sign Detail Recorded Client Recorded Date Recorded By Document 08/23/17 12:22 [email or web address] [id number] 08/23/17 12:24 08/23/17 12:22 Wound Center Nurse 2 [Procedure/Treatment] -Time 12:22 -Correct Patient Yes -Correct Side, Site, Position Yes -Correct Procedure Yes -Procedure Performed Yes -Type of Procedure Debridement -Clinical Debridement Subcutaneous -Post Debridement Size (cm) - Length 1 -Post Debridement Size (cm) - Width 0.8 -Post Debridement Size (cm) - Depth 0.2 -Total Square Cm 0.8 -Wound/Ulcer Outcome Not Healed -Ulcer Cleansing Rinsed/ Irrigated with Saline -Foul Odor after Cleansing No -Bioengineered Tissue Yes -Type of bioengineered Tissue EPIFIX -Expiration Date 05/25/22 -Product Lot Number [id number] -Percent Used 100 -Saline Lot Number [id number] -Bleeding Controlled with Pressure -Treatment Response Procedure Tolerated Well #3 R BKA Stump -Time 12:23 -Correct Patient Yes -Correct Side, Site, Position Yes -Correct Procedure Yes -Procedure Performed Yes -Type of Procedure Debridement -Clinical Debridement Subcutaneous -Post Debridement Size (cm) - Length 0.6 -Post Debridement Size (cm) - Width 0.3 -Post Debridement Size (cm) - Depth 0.1 -Total Square Cm 0.18 -Wound/Ulcer Outcome Not Healed -Ulcer Cleansing Rinsed/ Irrigated with Saline -Foul Odor after Cleansing No -Bioengineered Tissue Yes -Type of bioengineered Tissue EPIFIX -Expiration Date 05/25/22 -Product Lot Number [id number] -Percent Used 100 -Saline Lot Number [id number] -Bleeding Controlled with Pressure -Treatment Response Procedure Tolerated Well [See Physician Procedure note for Specifics] Pain Scale: 0-10 Numeric [Pain] -Is Patient Pain Free? Yes Musculoskeletal: No Tenderness to Palpation of Joints or Extremities, Muscle Wasting, - - Dorsal contraction of lesser digits left foot Neurological: - - Lack of epicritic sensation light touch bilateral lower extremities Psych/Mental Status: Normal Affect, Appropriate Debridement Note Post-Debridement Measurements/Treatment WC - Nurse 2 - General Ulcer CM Notes Start: 07/26/17 10:51 Freq: Status: Active Protocol: Activity Type Activity Date Activity User E-Sign Co-Sign Detail Recorded Client Recorded Date Recorded By Document 07/26/17 11:19 [id number] 07/26/17 11:21 Document 08/09/17 10:18 [id number] 08/09/17 10:20 Document 08/16/17 11:36 [id number] 08/16/17 11:38 Document 08/23/17 12:22 [id number] 08/23/17 12:24 JF 07/26/17 08/09/17 08/16/17 11:19 10:18 11:36 Wound Center Nurse 2 #2 L Plantar -Time 11:20 10:19 11:37 -Correct Patient Yes Yes Yes -Correct Side, Site, Position Yes Yes Yes -Correct Procedure Yes Yes Yes -Procedure Performed Yes Yes Yes -Type of Procedure Debridement Debridement Debridement -Clinical Debridement Subcutaneous Subcutaneous Subcutaneous -Post Debridement Size (cm) - Length 1.0 1.2 1.2 -Post Debridement Size (cm) - Width 0.6 1.2 1.0 -Post Debridement Size (cm) - Depth 0.3 0.2 0.2 -Total Square Cm 0.60 1.44 1.20 -Wound/Ulcer Outcome Not Healed Not Healed Not Healed -Ulcer Cleansing Rinsed/ Rinsed/ Rinsed/ Irrigated with Irrigated with Irrigated with Saline Saline Saline -Foul Odor after Cleansing No No No -Bioengineered Tissue No Yes Yes -Type of bioengineered Tissue EPIFIX EPIFIX EPIFIX -Expiration Date 03/27/22 05/25/22 05/25/22 -Product Lot Number [id number] -Percent Used 100 100 100 -Saline Lot Number [id number] -Bleeding Controlled with Pressure Pressure Pressure -Treatment Response Procedure Procedure Procedure Tolerated Well Tolerated Well Tolerated Well #3 R BKA Stump -Time -Correct Patient -Correct Side, Site, Position -Correct Procedure -Procedure Performed -Type of Procedure -Clinical Debridement -Post Debridement Size (cm) - Length -Post Debridement Size (cm) - Width -Post Debridement Size (cm) - Depth -Total Square Cm -Wound/Ulcer Outcome -Ulcer Cleansing -Foul Odor after Cleansing -Bioengineered Tissue -Type of bioengineered Tissue -Expiration Date -Product Lot Number -Percent Used -Saline Lot Number -Bleeding Controlled with -Treatment Response Pain Scale: 0-10 Numeric Is Patient Pain Free? Yes Yes Yes 08/23/17 12:22 Wound Center Nurse 2 #2 L Plantar -Time 12:22 -Correct Patient Yes -Correct Side, Site, Position Yes -Correct Procedure Yes -Procedure Performed Yes -Type of Procedure Debridement -Clinical Debridement Subcutaneous -Post Debridement Size (cm) - Length 1 -Post Debridement Size (cm) - Width 0.8 -Post Debridement Size (cm) - Depth 0.2 -Total Square Cm 0.8 -Wound/Ulcer Outcome Not Healed -Ulcer Cleansing Rinsed/ Irrigated with Saline -Foul Odor after Cleansing No -Bioengineered Tissue Yes -Type of bioengineered Tissue EPIFIX -Expiration Date 05/25/22 -Product Lot Number [id number] -Percent Used 100 -Saline Lot Number [id number] -Bleeding Controlled with Pressure -Treatment Response Procedure Tolerated Well #3 R BKA Stump -Time 12:23 -Correct Patient Yes -Correct Side, Site, Position Yes -Correct Procedure Yes -Procedure Performed Yes -Type of Procedure Debridement -Clinical Debridement Subcutaneous -Post Debridement Size (cm) - Length 0.6 -Post Debridement Size (cm) - Width 0.3 -Post Debridement Size (cm) - Depth 0.1 -Total Square Cm 0.18 -Wound/Ulcer Outcome Not Healed -Ulcer Cleansing Rinsed/ Irrigated with Saline -Foul Odor after Cleansing No -Bioengineered Tissue Yes -Type of bioengineered Tissue EPIFIX -Expiration Date 05/25/22 -Product Lot Number [id number] -Percent Used 100 -Saline Lot Number [id number] -Bleeding Controlled with Pressure -Treatment Response Procedure Tolerated Well Pain Scale: 0-10 Numeric Is Patient Pain Free? Yes Wound debrided: leg Laterality: Right Wound Grade/Stage: grade 1 Type of Debridement: Excisional debridement Anesthesia Used: 5% Lidocaine Gel Depth: in the subcutaneous layer Percentage of wound debrided: 100 Instrument Used: #15 blade Tissue Removed: fibrous, devitalized subcutaneous, biofilm, slough Severity: Fat Layer Exposed Amount of bleeding with debridement: Mild Bleeding Controlled with: Pressure Patient tolerated procedure well - Additional Wound Wound debrided: plantar foot Laterality: Left Wound Grade/Stage: grade 1 Type of Debridement: Excisional debridement Anesthesia Used: 5% Lidocaine Gel Depth: in the subcutaneous layer Percentage of wound debrided: 100 Instrument Used: #15 blade Tissue Removed: fibrous, devitalized subcutaneous, biofilm, slough Severity: Fat Layer Exposed Amount of bleeding with debridement: Mild Bleeding Controlled with: Pressure Patient tolerated procedure: Patient tolerated procedure well Assessment/Plan Active Problems History of right below knee amputation (Chronic) Hammer toe of left foot (Chronic) Ulcer of right lower extremity with fat layer exposed (Acute) Type 2 diabetes mellitus with diabetic polyneuropathy (Chronic) PAD (peripheral artery disease) (Chronic) Chronic ulcer of left foot with fat layer exposed (Chronic) Assessment: Left foot ulcer with fat layer, stable. Right leg ulcer fat layer exposed. Right below-knee amputation. Left Hammer digit syndrome. Peripheral vascular disease status post stenting to the popliteal artery on the right lower extremity and recently the left lower extremity. Diabetes with peripheral neuropathy. Malnutrition. Delayed healing. History of drug abuse. Smoker Plan: I reviewed and discussed his plan today. Debridement was performed as noted in the clinical panel to the left lower extremity and new right ulcer site. He was reassured there are no signs of infection saline irrigation was performed. Epifix, advanced wound care product was applied today after verbal consent. the indications, purpose and anticipated healing course were discussed. This was secured with steri strips and a wound veil. Left over additional corner product was placed to the right lower extremity and secured in place. He can also leave the site intact until next week. To continue to offload with cam walker and felt liner. The distal aspect of the pain was removed to further offload the ulcer site. Was advised to lines heal up properly in the back of a cam walker and I suspect that he is not doing this consistently due to the wear pattern identified on the phone liner. His weightbearing status was confirmed and discussed with his physical therapy unit last week via phone. It is okay to weight-bear to the heel for transfers and I do not recommend exercise walking yet. I recommend decreasing edema to the right lower extremity with standard Tubigrip application. He does not have apparent left lower extremity edema. He has known peripheral vascular disease with right popliteal stenting performed by vascular surgeon, Dr. Cristina. He also had recent left lower extremity popliteal stenting with successful perfusion through the posterior tibial artery into the left foot. To follow-up with Dr. Cristina as advised. To optimize healing by drinking two Fracisco supplements daily at his senior living facility. He was advised to get fitted for additional shrink wrap and prosthetic this week. I recommend holding off for additional couple weeks until his new right leg ulcer healed. His labs were requested from his senior living facility and reviewed as the following from July 06: White blood cell count 8.2 protein 6.3, creatinine 0.8 uric acid 7.0 sed rate 25 and C-reactive protein 6.6. These lab trends will be monitored. His last hemoglobin A1c was 6.4% on May 29, 2017. I recommend he follows up in 1 week or call sooner if he has any questions or concerns. To DC smoking to also optimize healing.
== END 2017-08-24 23:59 ==
LOC: WC 11:00
PROVIDERS: Visit Provider Podiatrist
DX: E11.621 Type 2 diabetes mellitus with foot ulcer (principal); L97.522 Non-pressure chronic ulcer of other part of left foot with fat layer exposed; M20.42 Other hammer toe(s) (acquired), left foot; E11.42 Type 2 diabetes mellitus with diabetic polyneuropathy; E11.51 Type 2 diabetes mellitus with diabetic peripheral angiopathy without gangrene; Z89.511 Acquired absence of right leg below knee; F17.200 Nicotine dependence, unspecified, uncomplicated
CPT/HCPCS: 15275; Q4131

== ENCOUNTER 2017-09-20 14:30 | Outpatient (RCR) | payer MEDICAID, SELFPAY ==
[2017-08-25 00:35] VITALS: BP 123/72; PULSE 74; RESP 18; TEMP 37.2; BMI 56.7
[2017-09-06 13:52] VITALS: BP 111/68; PULSE 82; RESP 18; TEMP 536.8; TEMP 998.2; BMI 56.7
--- NOTE | 2017-09-06 14:42 | PN.PCM_ITS ---
(1) Chronic ulcer of left foot with fat layer exposed Status: Chronic Current Visit: Yes Code(s): L97.522 - Non-pressure chronic ulcer of other part of left foot with fat layer exposed (2) Delayed wound healing Status: Chronic Current Visit: Yes Code(s): T14.8XXD - Other injury of unspecified body region, subsequent encounter (3) Hammer toe of left foot Status: Chronic Current Visit: Yes Code(s): M20.42 - Other hammer toe(s) ( acquired), left foot (4) Ulcer of right lower extremity with fat layer exposed Status: Chronic Current Visit: Yes Code(s): L97.912 - Non-pressure chronic ulcer of unspecified part of right lower leg with fat layer exposed (5) Type 2 diabetes mellitus with diabetic polyneuropathy Status: Chronic Current Visit: Yes Code(s): E11.42 - Type 2 diabetes mellitus with diabetic polyneuropathy (6) PAD (peripheral artery disease) Status: Chronic Current Visit: Yes Code(s): I73.9 - Peripheral vascular disease, unspecified Type of Wound Date of Service: 09/06/17 Chief Complaint: Right leg ulcer. left foot ulcer History of Wound: This 52-year-old male with diabetes and peripheral vascular disease presents the wound care center for chronic right leg ulcer and his previous below-knee amputation stump site. He wears a cam walker boot with offloading Plastizote to the left foot. He resides at a half-way facility and continues to work with physical therapy for balance, transfers, gait training, and offloading. He denies fever, chill, nausea, vomiting. He denies loss of appetite. He denies odor. He did recently see Dr. Cristina with vascular surgery who recently had a successful vascular surgery to restore popliteal flow into the posterior tibial artery and into the left foot. He is kept his dressings to both limbs intact as advised this past week. Progress of Wound: Improving right leg wound. left stable - Physical Exam Vital Signs Temp Pulse Resp BP 998.2 F H 82 18 111/68 09/06/17 13:52 09/06/17 13:52 09/06/17 13:52 09/06/17 13:52 General: Alert, Oriented x3, Cooperative Extremities: No cyanosis, Capillary Refill Less than 3 Seconds, No Calf Tenderness, Diminished Peripheral Pulses, Edema, - - Right below-knee amputation. Left lower extremity negative Germán and Cobian sign. Semirigid dorsal contraction of lesser digits with prominent metatarsal heads left foot Skin: Ulcer/ Wound - No purulence, no erythema, streaking, no odor, no acute infection bilateral lower extremities., - - The skin is atrophic bilateral lower extremities Wound Measurements and Assessment - Nurse 1 - General Ulcer Measurement Start: 09/06/17 13:52 Freq: Status: Active Protocol: Activity Type Activity Date Activity User E-Sign Co-Sign Detail Recorded Client Recorded Date Recorded By Document 09/06/17 13:52 [email or web address] [id number] 09/06/17 14:05 DL 09/06/17 13:52 Wound Center Nurse 1 [Ulcer Assessment] #2 L Plantar -Current Size (cm) - Length 0.9 -Current Size (cm) - Width 0.4 -Current Size (cm) - Depth 0.1 -Total Square Cm 0.36 -Photo Taken No -Exudate Amt None Present (0 %) -Wound Margin Thickened -Granulation Amt None Present (0 %) -Necrosis Amt Large (67-100%) -Necrotic Tissue Type Adherent Slough -Structure Exposed N/A -Texture (Elena-wound Skin Appearance) No Abnormality -Moisture (Elena-wound Skin Appearance Dry/Scaly ) -Color (Elena-wound Skin Appearance) No Abnormality -Temperature (Elena-wound Skin No Abnormality Appearance) (Pt Warm) -Ulcer Cleansing Wound Cleanser -Foul Odor after Cleansing No -Anesthetic Used 4% Lidocaine Solution - Nurse 2 - General Ulcer CM Notes Start: 09/06/17 13:52 Freq: Status: Active Protocol: Activity Type Activity Date Activity User E-Sign Co-Sign Detail Recorded Client Recorded Date Recorded By Document 09/06/17 14:19 ALONDRA [id number] 09/06/17 14:20 ALONDRA 09/06/17 14:19 Wound Center Nurse 2 [Procedure/Treatment] -Time 14:19 -Correct Patient Yes -Correct Side, Site, Position Yes -Correct Procedure Yes -Procedure Performed Yes -Type of Procedure Debridement -Clinical Debridement Subcutaneous -Post Debridement Size (cm) - Length 1 -Post Debridement Size (cm) - Width 0.4 -Post Debridement Size (cm) - Depth 0.1 -Total Square Cm 0.4 -Wound/Ulcer Outcome Not Healed -Ulcer Cleansing Rinsed/ Irrigated with Saline -Foul Odor after Cleansing No -Bioengineered Tissue No -Bleeding Controlled with Pressure -Treatment Response Procedure Tolerated Well #3 R BKA Stump -Time 14:20 -Correct Patient Yes -Correct Side, Site, Position Yes -Correct Procedure Yes -Procedure Performed Yes -Type of Procedure Debridement -Clinical Debridement Subcutaneous -Post Debridement Size (cm) - Length 0.1 -Post Debridement Size (cm) - Width 0.2 -Post Debridement Size (cm) - Depth 0.1 -Total Square Cm 0.02 -Wound/Ulcer Outcome Not Healed -Ulcer Cleansing Rinsed/ Irrigated with Saline -Foul Odor after Cleansing No -Bioengineered Tissue No -Bleeding Controlled with Pressure -Treatment Response Procedure Tolerated Well [See Physician Procedure note for Specifics] Pain Scale: 0-10 Numeric [Pain] -Is Patient Pain Free? Yes Musculoskeletal: No Tenderness to Palpation of Joints or Extremities, Muscle Wasting Neurological: - - Lack of epicritic sensation to light touch bilateral lower extremity is consistent with neuropathy Psych/Mental Status: Normal Affect, Appropriate Debridement Note Post-Debridement Measurements/Treatment WC - Nurse 2 - General Ulcer CM Notes Start: 09/06/17 13:52 Freq: Status: Active Protocol: Activity Type Activity Date Activity User E-Sign Co-Sign Detail Recorded Client Recorded Date Recorded By Document 09/06/17 14:19 ALONDRA [id number] 09/06/17 14:20 ALONDRA 09/06/17 14:19 Wound Center Nurse 2 #2 L Plantar -Time 14:19 -Correct Patient Yes -Correct Side, Site, Position Yes -Correct Procedure Yes -Procedure Performed Yes -Type of Procedure Debridement -Clinical Debridement Subcutaneous -Post Debridement Size (cm) - Length 1 -Post Debridement Size (cm) - Width 0.4 -Post Debridement Size (cm) - Depth 0.1 -Total Square Cm 0.4 -Wound/Ulcer Outcome Not Healed -Ulcer Cleansing Rinsed/ Irrigated with Saline -Foul Odor after Cleansing No -Bioengineered Tissue No -Bleeding Controlled with Pressure -Treatment Response Procedure Tolerated Well #3 R BKA Stump -Time 14:20 -Correct Patient Yes -Correct Side, Site, Position Yes -Correct Procedure Yes -Procedure Performed Yes -Type of Procedure Debridement -Clinical Debridement Subcutaneous -Post Debridement Size (cm) - Length 0.1 -Post Debridement Size (cm) - Width 0.2 -Post Debridement Size (cm) - Depth 0.1 -Total Square Cm 0.02 -Wound/Ulcer Outcome Not Healed -Ulcer Cleansing Rinsed/ Irrigated with Saline -Foul Odor after Cleansing No -Bioengineered Tissue No -Bleeding Controlled with Pressure -Treatment Response Procedure Tolerated Well Pain Scale: 0-10 Numeric Is Patient Pain Free? Yes Wound debrided: sub metatarsal head Laterality: Right Wound Grade/Stage: grade 1 Type of Debridement: Excisional debridement Anesthesia Used: 5% Lidocaine Gel Depth: in the subcutaneous layer Percentage of wound debrided: 100 Instrument Used: #15 blade Tissue Removed: fibrous, devitalized subcutaneous, biofilm, slough Severity: Fat Layer Exposed Amount of bleeding with debridement: Mild Bleeding Controlled with: Pressure Patient tolerated procedure well - Additional Wound Wound debrided: medial below knee amputation stump site Laterality: Left Wound Grade/Stage: grade 1 Type of Debridement: Excisional debridement Anesthesia Used: 5% Lidocaine Gel Depth: in the subcutaneous layer Percentage of wound debrided: 100 Instrument Used: #15 blade Tissue Removed: fibrous, devitalized subcutaneous, biofilm, slough Severity: Fat Layer Exposed Amount of bleeding with debridement: Mild Bleeding Controlled with: Pressure Patient tolerated procedure: Patient tolerated procedure well Assessment/Plan Active Problems Delayed wound healing (Chronic) Hammer toe of left foot (Chronic) Ulcer of right lower extremity with fat layer exposed (Chronic) Chronic ulcer of left foot with fat layer exposed (Chronic) Type 2 diabetes mellitus with diabetic polyneuropathy (Chronic) PAD (peripheral artery disease) (Chronic) Assessment: Left foot ulcer with fat layer, stable. Right leg ulcer fat layer exposed. Right below-knee amputation. Left Hammer digit syndrome. Peripheral vascular disease status post stenting to the popliteal artery on the right lower extremity and recently the left lower extremity. Diabetes with peripheral neuropathy. Malnutrition. Delayed healing. History of drug abuse. Smoker Plan: I reviewed and discussed his plan today. Debridement was performed as noted in the clinical panel to the left lower extremity and new right ulcer site. He was reassured there are no signs of infection . He is completed a full course of advanced wound care product, epi fix. Aquacel Ag was applied to the wounds today and he was advised to change them daily. He tolerated this well. To continue to offload with cam walker and felt liner. Was advised to lines his heel up properly in the back of a cam walker and I suspect that he is not doing this consistently due to the wear pattern identified on the phone liner. His weightbearing status was confirmed and discussed with his physical therapy unit. It is okay to weight-bear to the heel for transfers and I do not recommend exercise walking yet. I recommend decreasing edema to the right lower extremity with standard Tubigrip application. He does not have apparent left lower extremity edema. He has known peripheral vascular disease with right popliteal stenting performed by vascular surgeon, Dr. Cristina. He also had recent left lower extremity popliteal stenting with successful perfusion through the posterior tibial artery into the left foot. To follow-up with Dr. Cristina as advised. To optimize healing by drinking two Fracisco supplements daily at his half-way facility. I recommend holding off for additional couple weeks with shrink wrap application until his right leg ulcer heals. His labs were requested from his half-way facility and reviewed as the following from July 06: White blood cell count 8.2 protein 6.3, creatinine 0.8 uric acid 7.0 sed rate 25 and C-reactive protein 6.6. These lab trends will be monitored. His last hemoglobin A1c was 6.4% on May 29, 2017. I recommend he follows up in 1 week or call sooner if he has any questions or concerns. To D/C smoking to also optimize healing.
[2017-09-13 14:16] VITALS: BP 132/73; PULSE 107; RESP 16; TEMP 37.6; BMI 56.7
--- NOTE | 2017-09-13 15:35 | PCM.WC.PN ---
(1) Chronic ulcer of left foot with fat layer exposed Status: Chronic Current Visit: Yes Code(s): L97.522 - Non-pressure chronic ulcer of other part of left foot with fat layer exposed (2) Delayed wound healing Status: Chronic Current Visit: Yes Code(s): T14.8XXD - Other injury of unspecified body region, subsequent encounter (3) Hammer toe of left foot Status: Chronic Current Visit: Yes Code(s): M20.42 - Other hammer toe(s) (acquired), left foot (4) Ulcer of right lower extremity with fat layer exposed Status: Resolved Current Visit: Yes Code(s): L97.912 - Non-pressure chronic ulcer of unspecified part of right lower leg with fat layer exposed (5) Type 2 diabetes mellitus with diabetic polyneuropathy Status: Chronic Current Visit: Yes Code(s): E11.42 - Type 2 diabetes mellitus with diabetic polyneuropathy (6) PAD (peripheral artery disease) Status: Chronic Current Visit: Yes Code(s): I73.9 - Peripheral vascular disease, unspecified Type of Wound Date of Service: 09/13/17 Chief Complaint: Right leg ulcer healed. left foot ulcer History of Wound: This 52-year-old male with diabetes and peripheral vascular disease presents the wound care center for chronic right leg ulcer and his previous below-knee amputation stump site. He wears a cam walker boot with offloading Plastizote to the left foot. He resides at a correction facility and continues to work with physical therapy for balance, transfers, gait training, and offloading. He no longer walks on the left limb. He denies fever, chill, nausea, vomiting. He did recently see Dr. Cristina with vascular surgery who recently had a successful vascular surgery to restore popliteal flow into the posterior tibial artery and into the left foot. He is kept his dressings to both limbs intact as advised this past week. Progress of Wound: Healed right leg wound. left ulcer foot improving - Physical Exam Vital Signs Temp Pulse Resp BP 99.6 F H 107 H 16 132/73 H 09/13/17 14:16 09/13/17 14:16 09/13/17 14:16 09/13/17 14:16 General: Alert, Oriented x3, Cooperative Extremities: No cyanosis, No edema, Capillary Refill Less than 3 Seconds, No Calf Tenderness, Diminished Peripheral Pulses, - - Contraction left lower extremity. Right below-knee amputation. Skin: Ulcer/ Wound - No purulence, no erythema, streaking, no odor, no infection bilateral lower extremity's. There is full epithelialization to the heel right below-knee amputation stump ulcer site and this is looking stable and healed today. The left plantar foot ulcers also significantly decreased in size with peripheral epithelialization noted. Bilateral limb skin is atrophic and hairless Wound Measurements and Assessment WC - Nurse 1 - General Ulcer Measurement Start: 09/06/17 13:52 Freq: Status: Active Protocol: Activity Type Activity Date Activity User E-Sign Co-Sign Detail Recorded Client Recorded Date Recorded By Document 09/13/17 14:[address] [facility] [id number] 09/13/17 14:[address] [facility] 09/13/17 14:16 Wound Center Nurse 1 [Ulcer Assessment] #2 L Plantar -Combined with other wound No -Current Size (cm) - Length 0.1 -Current Size (cm) - Width 0.1 -Current Size (cm) - Depth 0.3 -Total Square Cm 0.01 -Epithelialization None Present -Tunneling No -Undermining/Tunneling No -Circular Undermining No -Exudate Amt Small (1-33%) -Exudate Type Sanguineous -Wound Margin Distinct, Outline Attached -Granulation Amt None Present (0 %) -Slough/Fibrin Yes -Necrosis Amt Large (67-100%) -Necrotic Tissue Type Adherent Slough -Structure Exposed N/A -Texture (Elena-wound Skin Appearance) Callus Scarring -Moisture (Elena-wound Skin Appearance Dry/Scaly ) -Color (Elena-wound Skin Appearance) Assessed -Temperature (Elena-wound Skin No Abnormality Appearance) (Pt Warm) -Tenderness on Palpation (Elena-wound No Skin Appearance) -Ulcer Cleansing Rinsed/ Irrigated with Saline -Foul Odor after Cleansing No -Anesthetic Used 4% Lidocaine Solution #3 R BKA Stump -Combined with other wound No -Current Size (cm) - Length 0.1 -Current Size (cm) - Width 0.1 -Current Size (cm) - Depth 0.1 -Total Square Cm 0.01 -Photo Taken No -Epithelialization Medium 34-66% -Tunneling No -Undermining/Tunneling No -Circular Undermining No -Exudate Amt None Present (0 %) -Wound Margin Distinct, Outline Attached -Granulation Amt None Present (0 %) -Slough/Fibrin Yes -Necrosis Amt Large (67-100%) -Necrotic Tissue Type Adherent Slough -Structure Exposed N/A -Texture (Elena-wound Skin Appearance) Scarring -Moisture (Elena-wound Skin Appearance Dry/Scaly ) -Color (Elena-wound Skin Appearance) Assessed -Temperature (Elena-wound Skin No Abnormality Appearance) (Pt Warm) -Tenderness on Palpation (Elena-wound No Skin Appearance) -Ulcer Cleansing Rinsed/ Irrigated with Saline -Foul Odor after Cleansing No -Anesthetic Used 4% Lidocaine Solution WC - Nurse 2 - General Ulcer CM Notes Start: 09/06/17 13:52 Freq: Status: Active Protocol: Activity Type Activity Date Activity User E-Sign Co-Sign Detail Recorded Client Recorded Date Recorded By Document 09/13/17 15:14 ALONDRA [id number] 09/13/17 15:15 ALONDRA 09/13/17 15:14 Wound Center Nurse 2 [Procedure/Treatment] #2 L Plantar -Time 15:14 -Correct Patient Yes -Correct Side, Site, Position Yes -Correct Procedure Yes -Procedure Performed Yes -Type of Procedure Debridement -Clinical Debridement Subcutaneous -Post Debridement Size (cm) - Length 0.4 -Post Debridement Size (cm) - Width 0.3 -Post Debridement Size (cm) - Depth 0.3 -Total Square Cm 0.12 -Wound/Ulcer Outcome Not Healed -Ulcer Cleansing Rinsed/ Irrigated with Saline -Foul Odor after Cleansing No -Bioengineered Tissue No -Bleeding Controlled with Pressure -Treatment Response Procedure Tolerated Well #3 R BKA Stump -Correct Patient No -Correct Side, Site, Position No -Correct Procedure No -Procedure Performed No -Post Debridement Size (cm) - Length 0 -Post Debridement Size (cm) - Width 0 -Post Debridement Size (cm) - Depth 0 -Total Square Cm 0 -Wound/Ulcer Outcome Healed- Epithelialized [See Physician Procedure note for Specifics] Pain Scale: 0-10 Numeric [Pain] -Is Patient Pain Free? Yes Musculoskeletal: No Tenderness to Palpation of Joints or Extremities, Muscle Wasting Neurological: - - Lack of epicritic sensation light touch bilateral lower extreme wheeze Psych/Mental Status: Normal Affect, Appropriate Debridement Note Post-Debridement Measurements/Treatment WC - Nurse 2 - General Ulcer CM Notes Start: 09/06/17 13:52 Freq: Status: Active Protocol: Activity Type Activity Date Activity User E-Sign Co-Sign Detail Recorded Client Recorded Date Recorded By Document 09/06/17 14:19 [id number] 09/06/17 14:20 Document 09/13/17 15:14 [id number] 09/13/17 15:15 09/06/17 09/13/17 14:19 15:14 Wound Center Nurse 2 #2 L Plantar -Time 14:19 15:14 -Correct Patient Yes Yes -Correct Side, Site, Position Yes Yes -Correct Procedure Yes Yes -Procedure Performed Yes Yes -Type of Procedure Debridement Debridement -Clinical Debridement Subcutaneous Subcutaneous -Post Debridement Size (cm) - Length 1 0.4 -Post Debridement Size (cm) - Width 0.4 0.3 -Post Debridement Size (cm) - Depth 0.1 0.3 -Total Square Cm 0.4 0.12 -Wound/Ulcer Outcome Not Healed Not Healed -Ulcer Cleansing Rinsed/ Rinsed/ Irrigated with Irrigated with Saline Saline -Foul Odor after Cleansing No No -Bioengineered Tissue No No -Bleeding Controlled with Pressure Pressure -Treatment Response Procedure Procedure Tolerated Well Tolerated Well #3 R BKA Stump -Time 14:20 -Correct Patient Yes No -Correct Side, Site, Position Yes No -Correct Procedure Yes No -Procedure Performed Yes No -Type of Procedure Debridement -Clinical Debridement Subcutaneous -Post Debridement Size (cm) - Length 0.1 0 -Post Debridement Size (cm) - Width 0.2 0 -Post Debridement Size (cm) - Depth 0.1 0 -Total Square Cm 0.02 0 -Wound/Ulcer Outcome Not Healed Healed- Epithelialized -Ulcer Cleansing Rinsed/ Irrigated with Saline -Foul Odor after Cleansing No -Bioengineered Tissue No -Bleeding Controlled with Pressure -Treatment Response Procedure Tolerated Well Pain Scale: 0-10 Numeric Is Patient Pain Free? Yes Yes Wound debrided: sub metatarsal head Laterality: Left Wound Grade/Stage: grade 1 Type of Debridement: Excisional debridement Anesthesia Used: 5% Lidocaine Gel Depth: in the subcutaneous layer Percentage of wound debrided: 100 Instrument Used: #15 blade Tissue Removed: fibrous, devitalized subcutaneous, biofilm, slough Severity: Fat Layer Exposed Amount of bleeding with debridement: Mild Bleeding Controlled with: Pressure Patient tolerated procedure well Assessment/Plan Active Problems Delayed wound healing (Chronic) Hammer toe of left foot (Chronic) Chronic ulcer of left foot with fat layer exposed (Chronic) Type 2 diabetes mellitus with diabetic polyneuropathy (Chronic) PAD (peripheral artery disease) (Chronic) Assessment: Left foot ulcer with fat layer, stable. Right leg ulcer healed. Right below-knee amputation. Left Hammer digit syndrome. Peripheral vascular disease status post stenting to the popliteal artery on the right lower extremity and recently the left lower extremity. Diabetes with peripheral neuropathy. Malnutrition. Delayed healing. History of drug abuse. Smoker Plan: I reviewed and discussed his plan today. Debridement was performed as noted in the clinical panel to the left lower extremity. His right leg ulcer site has healed. He has completed a full course of advanced wound care product, epi fix. Aquacel Ag was applied to the wounds today and he was advised to change them daily. He tolerated this well. To continue to offload with cam walker and felt liner. Was advised to lines his heel up properly in the back of a cam walker and I suspect that he is not doing this consistently due to the wear pattern identified on the phone liner. If this wound starts deteriorating again a total contact cast will be applied. It is okay to weight-bear to the heel for transfers and I do not recommend exercise walking yet. I recommend decreasing edema to the right lower extremity with standard Tubigrip application. This is well controlled today. He has known peripheral vascular disease with right popliteal stenting performed by vascular surgeon, Dr. Cristina. He also had recent left lower extremity popliteal stenting with successful perfusion through the posterior tibial artery into the left foot. To follow-up with Dr. Cristina as advised. To optimize healing by drinking two Fracisco supplements daily at his correction facility. I recommend holding off for an additional week with shrink wrap application until his right leg ulcer heals. His labs were requested from his correction facility and reviewed as the following from July 06: White blood cell count 8.2 protein 6.3, creatinine 0.8 uric acid 7.0 sed rate 25 and C-reactive protein 6.6. These lab trends will be monitored. His last hemoglobin A1c was 6.4% on May 29, 2017. I recommend he follows up in 1 week or call sooner if he has any questions or concerns. To D/C smoking to also optimize healing.
--- NOTE | 2017-09-13 15:40 | PN.PCM_ITS ---
(1) Chronic ulcer of left foot with fat layer exposed Status: Chronic Current Visit: Yes Code(s): L97.522 - Non-pressure chronic ulcer of other part of left foot with fat layer exposed (2) Delayed wound healing Status: Chronic Current Visit: Yes Code(s): T14.8XXD - Other injury of unspecified body region, subsequent encounter (3) Hammer toe of left foot Status: Chronic Current Visit: Yes Code(s): M20.42 - Other hammer toe(s) ( acquired), left foot (4) Ulcer of right lower extremity with fat layer exposed Status: Resolved Current Visit: Yes Code(s): L97.912 - Non-pressure chronic ulcer of unspecified part of right lower leg with fat layer exposed (5) Type 2 diabetes mellitus with diabetic polyneuropathy Status: Chronic Current Visit: Yes Code(s): E11.42 - Type 2 diabetes mellitus with diabetic polyneuropathy (6) PAD (peripheral artery disease) Status: Chronic Current Visit: Yes Code(s): I73.9 - Peripheral vascular disease, unspecified Type of Wound Date of Service: 09/13/17 Chief Complaint: Right leg ulcer healed. left foot ulcer History of Wound: This 52-year-old male with diabetes and peripheral vascular disease presents the wound care center for chronic right leg ulcer and his previous below-knee amputation stump site. He wears a cam walker boot with offloading Plastizote to the left foot. He resides at a [facility]pc facility and continues to work with physical therapy for balance, transfers, gait training, and offloading. He no longer walks on the left limb. He denies fever, chill, nausea, vomiting. He did recently see Dr. Cristina with vascular surgery who recently had a successful vascular surgery to restore popliteal flow into the posterior tibial artery and into the left foot. He is kept his dressings to both limbs intact as advised this past week. Progress of Wound: Healed right leg wound. left ulcer foot improving - Physical Exam Vital Signs Temp Pulse Resp BP 99.6 F H 107 H 16 132/73 H 09/13/17 14:16 09/13/17 14:16 09/13/17 14:16 09/13/17 14:16 General: Alert, Oriented x3, Cooperative Extremities: No cyanosis, No edema, Capillary Refill Less than 3 Seconds, No Calf Tenderness, Diminished Peripheral Pulses, - - Contraction left lower extremity. Right below-knee amputation. Skin: Ulcer/ Wound - No purulence, no erythema, streaking, no odor, no infection bilateral lower extremity's. There is full epithelialization to the heel right below-knee amputation stump ulcer site and this is looking stable and healed today. The left plantar foot ulcers also significantly decreased in size with peripheral epithelialization noted. Bilateral limb skin is atrophic and hairless Wound Measurements and Assessment WC - Nurse 1 - General Ulcer Measurement Start: 09/06/17 13:52 Freq: Status: Active Protocol: Activity Type Activity Date Activity User E-Sign Co-Sign Detail Recorded Client Recorded Date Recorded By Document 09/13/17 14:16 [facility] [id number] 09/13/17 14:25 [facility] 09/13/17 14:16 Wound Center Nurse 1 [Ulcer Assessment] #2 L Plantar -Combined with other wound No -Current Size (cm) - Length 0.1 -Current Size (cm) - Width 0.1 -Current Size (cm) - Depth 0.3 -Total Square Cm 0.01 -Epithelialization None Present -Tunneling No -Undermining/Tunneling No -Circular Undermining No -Exudate Amt Small (1-33%) -Exudate Type Sanguineous -Wound Margin Distinct, Outline Attached -Granulation Amt None Present (0 %) -Slough/Fibrin Yes -Necrosis Amt Large (67-100%) -Necrotic Tissue Type Adherent Slough -Structure Exposed N/A -Texture (Elena-wound Skin Appearance) Callus Scarring -Moisture (Elena-wound Skin Appearance Dry/Scaly ) -Color (Elena-wound Skin Appearance) Assessed -Temperature (Elena-wound Skin No Abnormality Appearance) (Pt Warm) -Tenderness on Palpation (Elena-wound No Skin Appearance) -Ulcer Cleansing Rinsed/ Irrigated with Saline -Foul Odor after Cleansing No -Anesthetic Used 4% Lidocaine Solution #3 R BKA Stump -Combined with other wound No -Current Size (cm) - Length 0.1 -Current Size (cm) - Width 0.1 -Current Size (cm) - Depth 0.1 -Total Square Cm 0.01 -Photo Taken No -Epithelialization Medium 34-66% -Tunneling No -Undermining/Tunneling No -Circular Undermining No -Exudate Amt None Present (0 %) -Wound Margin Distinct, Outline Attached -Granulation Amt None Present (0 %) -Slough/Fibrin Yes -Necrosis Amt Large (67-100%) -Necrotic Tissue Type Adherent Slough -Structure Exposed N/A -Texture (Elena-wound Skin Appearance) Scarring -Moisture (Elena-wound Skin Appearance Dry/Scaly ) -Color (Elena-wound Skin Appearance) Assessed -Temperature (Elena-wound Skin No Abnormality Appearance) (Pt Warm) -Tenderness on Palpation (Elena-wound No Skin Appearance) -Ulcer Cleansing Rinsed/ Irrigated with Saline -Foul Odor after Cleansing No -Anesthetic Used 4% Lidocaine Solution WC - Nurse 2 - General Ulcer CM Notes Start: 09/06/17 13:52 Freq: Status: Active Protocol: Activity Type Activity Date Activity User E-Sign Co-Sign Detail Recorded Client Recorded Date Recorded By Document 09/13/17 15:14 ALONDRA [id number] 09/13/17 15:15 ALONDRA 09/13/17 15:14 Wound Center Nurse 2 [Procedure/Treatment] #2 L Plantar -Time 15:14 -Correct Patient Yes -Correct Side, Site, Position Yes -Correct Procedure Yes -Procedure Performed Yes -Type of Procedure Debridement -Clinical Debridement Subcutaneous -Post Debridement Size (cm) - Length 0.4 -Post Debridement Size (cm) - Width 0.3 -Post Debridement Size (cm) - Depth 0.3 -Total Square Cm 0.12 -Wound/Ulcer Outcome Not Healed -Ulcer Cleansing Rinsed/ Irrigated with Saline -Foul Odor after Cleansing No -Bioengineered Tissue No -Bleeding Controlled with Pressure -Treatment Response Procedure Tolerated Well #3 R BKA Stump -Correct Patient No -Correct Side, Site, Position No -Correct Procedure No -Procedure Performed No -Post Debridement Size (cm) - Length 0 -Post Debridement Size (cm) - Width 0 -Post Debridement Size (cm) - Depth 0 -Total Square Cm 0 -Wound/Ulcer Outcome Healed- Epithelialized [See Physician Procedure note for Specifics] Pain Scale: 0-10 Numeric [Pain] -Is Patient Pain Free? Yes Musculoskeletal: No Tenderness to Palpation of Joints or Extremities, Muscle Wasting Neurological: - - Lack of epicritic sensation light touch bilateral lower extreme wheeze Psych/Mental Status: Normal Affect, Appropriate Debridement Note Post-Debridement Measurements/Treatment WC - Nurse 2 - General Ulcer CM Notes Start: 09/06/17 13:52 Freq: Status: Active Protocol: Activity Type Activity Date Activity User E-Sign Co-Sign Detail Recorded Client Recorded Date Recorded By Document 09/06/17 14:19 [id number] 09/06/17 14:20 Document 09/13/17 15:14 [id number] 09/13/17 15:15 09/06/17 09/13/17 14:19 15:14 Wound Center Nurse 2 #2 L Plantar -Time 14:19 15:14 -Correct Patient Yes Yes -Correct Side, Site, Position Yes Yes -Correct Procedure Yes Yes -Procedure Performed Yes Yes -Type of Procedure Debridement Debridement -Clinical Debridement Subcutaneous Subcutaneous -Post Debridement Size (cm) - Length 1 0.4 -Post Debridement Size (cm) - Width 0.4 0.3 -Post Debridement Size (cm) - Depth 0.1 0.3 -Total Square Cm 0.4 0.12 -Wound/Ulcer Outcome Not Healed Not Healed -Ulcer Cleansing Rinsed/ Rinsed/ Irrigated with Irrigated with Saline Saline -Foul Odor after Cleansing No No -Bioengineered Tissue No No -Bleeding Controlled with Pressure Pressure -Treatment Response Procedure Procedure Tolerated Well Tolerated Well #3 R BKA Stump -Time 14:20 -Correct Patient Yes No -Correct Side, Site, Position Yes No -Correct Procedure Yes No -Procedure Performed Yes No -Type of Procedure Debridement -Clinical Debridement Subcutaneous -Post Debridement Size (cm) - Length 0.1 0 -Post Debridement Size (cm) - Width 0.2 0 -Post Debridement Size (cm) - Depth 0.1 0 -Total Square Cm 0.02 0 -Wound/Ulcer Outcome Not Healed Healed- Epithelialized -Ulcer Cleansing Rinsed/ Irrigated with Saline -Foul Odor after Cleansing No -Bioengineered Tissue No -Bleeding Controlled with Pressure -Treatment Response Procedure Tolerated Well Pain Scale: 0-10 Numeric Is Patient Pain Free? Yes Yes Wound debrided: sub metatarsal head Laterality: Left Wound Grade/Stage: grade 1 Type of Debridement: Excisional debridement Anesthesia Used: 5% Lidocaine Gel Depth: in the subcutaneous layer Percentage of wound debrided: 100 Instrument Used: #15 blade Tissue Removed: fibrous, devitalized subcutaneous, biofilm, slough Severity: Fat Layer Exposed Amount of bleeding with debridement: Mild Bleeding Controlled with: Pressure Patient tolerated procedure well Assessment/Plan Active Problems Delayed wound healing (Chronic) Hammer toe of left foot (Chronic) Chronic ulcer of left foot with fat layer exposed (Chronic) Type 2 diabetes mellitus with diabetic polyneuropathy (Chronic) PAD (peripheral artery disease) (Chronic) Assessment: Left foot ulcer with fat layer, stable. Right leg ulcer healed. Right below-knee amputation. Left Hammer digit syndrome. Peripheral vascular disease status post stenting to the popliteal artery on the right lower extremity and recently the left lower extremity. Diabetes with peripheral neuropathy. Malnutrition. Delayed healing. History of drug abuse. Smoker Plan: I reviewed and discussed his plan today. Debridement was performed as noted in the clinical panel to the left lower extremity. His right leg ulcer site has healed. He has completed a full course of advanced wound care product, epi fix. Aquacel Ag was applied to the wounds today and he was advised to change them daily. He tolerated this well. To continue to offload with cam walker and felt liner. Was advised to lines his heel up properly in the back of a cam walker and I suspect that he is not doing this consistently due to the wear pattern identified on the phone liner. If this wound starts deteriorating again a total contact cast will be applied. It is okay to weight-bear to the heel for transfers and I do not recommend exercise walking yet. I recommend decreasing edema to the right lower extremity with standard Tubigrip application. This is well controlled today. He has known peripheral vascular disease with right popliteal stenting performed by vascular surgeon, Dr. Cristina. He also had recent left lower extremity popliteal stenting with successful perfusion through the posterior tibial artery into the left foot. To follow-up with Dr. Cristina as advised. To optimize healing by drinking two Fracisco supplements daily at his fpc facility. I recommend holding off for an additional week with shrink wrap application until his right leg ulcer heals. His labs were requested from his [facility] facility and reviewed as the following from July 06: White blood cell count 8.2 protein 6.3, creatinine 0.8 uric acid 7.0 sed rate 25 and C-reactive protein 6.6. These lab trends will be monitored. His last hemoglobin A1c was 6.4% on May 29, 2017. I recommend he follows up in 1 week or call sooner if he has any questions or concerns. To D/C smoking to also optimize healing.
[2017-09-20 14:04] VITALS: BP 131/70; PULSE 91; RESP 16; TEMP 37; BMI 56.7
--- NOTE | 2017-09-20 16:09 | PCM.WC.PN ---
(1) Chronic ulcer of left foot with fat layer exposed Status: Chronic Code(s): L97.522 - Non-pressure chronic ulcer of other part of left foot with fat layer exposed (2) Delayed wound healing Status: Chronic Code(s): T14.8XXD - Other injury of unspecified body region, subsequent encounter (3) Hammer toe of left foot Status: Chronic Code(s): M20.42 - Other hammer toe(s) (acquired), left foot (4) Type 2 diabetes mellitus with diabetic polyneuropathy Status: Chronic Code(s): E11.42 - Type 2 diabetes mellitus with diabetic polyneuropathy (5) PAD (peripheral artery disease) Status: Chronic Code(s): I73.9 - Peripheral vascular disease, unspecified Type of Wound Date of Service: 09/24/17 Chief Complaint: Right leg ulcer healed. left foot ulcer History of Wound: This 52-year-old male with diabetes and peripheral vascular disease presents the wound care center for chronic right leg ulcer and his previous below-knee amputation stump site. He wears a cam walker boot with offloading Plastizote to the left foot. He resides at a senior care facility and continues to work with physical therapy for balance, transfers, gait training, and offloading. He no longer walks on the left limb. He denies fever, chill, nausea, vomiting. He did recently see Dr. Cristina with vascular surgery who recently had a successful vascular surgery to restore popliteal flow into the posterior tibial artery and into the left foot. Progress of Wound: Healed right leg wound. left ulcer foot improving - Physical Exam Vital Signs Temp Pulse Resp BP 98.6 F 91 16 131/70 H 09/20/17 14:04 09/20/17 14:04 09/20/17 14:04 09/20/17 14:04 General: Alert, Oriented x3, Cooperative Extremities: No cyanosis, Capillary Refill Less than 3 Seconds, No Calf Tenderness - neg left radha and hassan, Diminished Peripheral Pulses, Edema Skin: Ulcer/ Wound - no purulence, no erythema, no infection, no acute infection. atrophic skin noted Wound Measurements and Assessment WC - Nurse 1 - General Ulcer Measurement Start: 09/06/17 13:52 Freq: Status: Active Protocol: Activity Type Activity Date Activity User E-Sign Co-Sign Detail Recorded Client Recorded Date Recorded By Document 09/20/17 14:04 [facility] [id number] 09/20/17 14:11 [facility] 09/20/17 14:04 Wound Center Nurse 1 [Ulcer Assessment] #2 L Plantar -Combined with other wound No -Current Size (cm) - Length 0.1 -Current Size (cm) - Width 0.1 -Current Size (cm) - Depth 0.1 -Total Square Cm 0.01 -Photo Taken No -Epithelialization Large 67-100% -Tunneling No -Undermining/Tunneling No -Circular Undermining No -Exudate Amt Small (1-33%) -Exudate Type Serosanguineous -Wound Margin Distinct, Outline Attached -Granulation Amt None Present (0 %) -Necrosis Amt Large (67-100%) -Necrotic Tissue Type Adherent Slough -Structure Exposed N/A -Texture (Elena-wound Skin Appearance) Callus Scarring -Moisture (Elena-wound Skin Appearance Dry/Scaly ) -Color (Elena-wound Skin Appearance) Assessed -Temperature (Elena-wound Skin No Abnormality Appearance) (Pt Warm) -Tenderness on Palpation (Elena-wound No Skin Appearance) -Ulcer Cleansing Rinsed/ Irrigated with Saline -Foul Odor after Cleansing No -Anesthetic Used 4% Lidocaine Solution WC - Nurse 2 - General Ulcer CM Notes Start: 09/06/17 13:52 Freq: Status: Active Protocol: Activity Type Activity Date Activity User E-Sign Co-Sign Detail Recorded Client Recorded Date Recorded By Document 09/20/17 14:33 [id number] 09/20/17 14:34 09/20/17 14:33 Wound Center Nurse 2 [Procedure/Treatment] -Time 14:33 -Correct Patient Yes -Correct Side, Site, Position Yes -Correct Procedure Yes -Procedure Performed Yes -Type of Procedure Debridement -Clinical Debridement Subcutaneous -Post Debridement Size (cm) - Length 0.4 -Post Debridement Size (cm) - Width 0.3 -Post Debridement Size (cm) - Depth 0.2 -Total Square Cm 0.12 -Wound/Ulcer Outcome Not Healed -Ulcer Cleansing Not Cleansed -Foul Odor after Cleansing No -Bioengineered Tissue No -Bleeding Controlled with NA -Treatment Response Procedure Tolerated Well [See Physician Procedure note for Specifics] Pain Scale: 0-10 Numeric [Pain] -Is Patient Pain Free? Yes Musculoskeletal: No Tenderness to Palpation of Joints or Extremities, Muscle Wasting, - - right below knee amputation with healed ulcer site. left prominent metatarsal heads and dorsal contraction of lesser toes Neurological: - - Lack of epicritic sensation light touch Psych/Mental Status: Normal Affect, Appropriate Debridement Note Post-Debridement Measurements/Treatment WC - Nurse 2 - General Ulcer CM Notes Start: 09/06/17 13:52 Freq: Status: Active Protocol: Activity Type Activity Date Activity User E-Sign Co-Sign Detail Recorded Client Recorded Date Recorded By Document 09/06/17 14:19 [id number] 09/06/17 14:20 Document 09/13/17 15:14 [email or web address] [id number] 09/13/17 15:15 JF Document 09/20/17 14:33 [id number] 09/20/17 14:34 CS 09/06/17 09/13/17 09/20/17 14:19 15:14 14:33 Wound Center Nurse 2 #2 L Plantar -Time 14:19 15:14 14:33 -Correct Patient Yes Yes Yes -Correct Side, Site, Position Yes Yes Yes -Correct Procedure Yes Yes Yes -Procedure Performed Yes Yes Yes -Type of Procedure Debridement Debridement Debridement -Clinical Debridement Subcutaneous Subcutaneous Subcutaneous -Post Debridement Size (cm) - Length 1 0.4 0.4 -Post Debridement Size (cm) - Width 0.4 0.3 0.3 -Post Debridement Size (cm) - Depth 0.1 0.3 0.2 -Total Square Cm 0.4 0.12 0.12 -Wound/Ulcer Outcome Not Healed Not Healed Not Healed -Ulcer Cleansing Rinsed/ Rinsed/ Not Cleansed Irrigated with Irrigated with Saline Saline -Foul Odor after Cleansing No No No -Bioengineered Tissue No No No -Bleeding Controlled with Pressure Pressure NA -Treatment Response Procedure Procedure Procedure Tolerated Well Tolerated Well Tolerated Well #3 R BKA Stump -Time 14:20 -Correct Patient Yes No -Correct Side, Site, Position Yes No -Correct Procedure Yes No -Procedure Performed Yes No -Type of Procedure Debridement -Clinical Debridement Subcutaneous -Post Debridement Size (cm) - Length 0.1 0 -Post Debridement Size (cm) - Width 0.2 0 -Post Debridement Size (cm) - Depth 0.1 0 -Total Square Cm 0.02 0 -Wound/Ulcer Outcome Not Healed Healed- Epithelialized -Ulcer Cleansing Rinsed/ Irrigated with Saline -Foul Odor after Cleansing No -Bioengineered Tissue No -Bleeding Controlled with Pressure -Treatment Response Procedure Tolerated Well Pain Scale: 0-10 Numeric Is Patient Pain Free? Yes Yes Yes Wound debrided: plantar foot Laterality: Left Wound Grade/Stage: grade 1 Type of Debridement: Excisional debridement Anesthesia Used: 5% Lidocaine Gel Depth: in the subcutaneous layer Percentage of wound debrided: 100 Instrument Used: #15 blade Tissue Removed: fibrous, devitalized subcutaneous, biofilm, slough Severity: Fat Layer Exposed Amount of bleeding with debridement: Mild Bleeding Controlled with: Pressure Patient tolerated procedure well Assessment/Plan Assessment: Left foot ulcer with fat layer, stable. Right leg ulcer healed. Right below-knee amputation. Left Hammer digit syndrome. Peripheral vascular disease status post stenting to the popliteal artery on the right lower extremity and recently the left lower extremity. Diabetes with peripheral neuropathy. Malnutrition. Delayed healing. History of drug abuse. Smoker Plan: I reviewed and discussed his plan today. Debridement was performed as noted in the clinical panel to the left lower extremity. His right leg ulcer site has healed. To proceed with shrink dressing and prosthetic fitting at this time. He has completed a full course of advanced wound care product, epi fix. Aquacel Ag was applied to the wounds today and he was advised to change them daily. He tolerated this well. To continue to offload with cam walker and felt liner. If this wound starts deteriorating again a total contact cast will be applied. It is okay to weight-bear to the heel for transfers and I do not recommend exercise walking yet. I recommend decreasing edema to the right lower extremity with standard Tubigrip application. This is well controlled today. He has known peripheral vascular disease with right popliteal stenting performed by vascular surgeon, Dr. Cristina. He also had recent left lower extremity popliteal stenting with successful perfusion through the posterior tibial artery into the left foot. To follow-up with Dr. Cristina as advised. To optimize healing by drinking two Fracisco supplements daily at his senior care facility. His labs were requested from his senior care facility and reviewed as the following from July 06: White blood cell count 8.2 protein 6.3, creatinine 0.8 uric acid 7.0 sed rate 25 and C-reactive protein 6.6. These lab trends will be monitored. His last hemoglobin A1c was 6.4% on May 29, 2017. I recommend he follows up in 2 week or call sooner if he has any questions or concerns. The Center is closed next week due to the national holiday. To D/C smoking to also optimize healing.
== END 2017-09-23 23:59 ==
LOC: WC 14:30
PROVIDERS: Visit Provider Podiatrist
DX: E11.621 Type 2 diabetes mellitus with foot ulcer (principal); E11.42 Type 2 diabetes mellitus with diabetic polyneuropathy; E11.51 Type 2 diabetes mellitus with diabetic peripheral angiopathy without gangrene; L97.522 Non-pressure chronic ulcer of other part of left foot with fat layer exposed; M20.42 Other hammer toe(s) (acquired), left foot; E11.622 Type 2 diabetes mellitus with other skin ulcer; L97.812 Non-pressure chronic ulcer of other part of right lower leg with fat layer exposed; Z89.511 Acquired absence of right leg below knee
CPT/HCPCS: 11042; 15275; Q4131

== ENCOUNTER 2017-10-04 12:35 | Outpatient (RCR) | payer MEDICAID, SELFPAY ==
[2017-09-24 00:34] VITALS: BP 131/70; PULSE 91; RESP 16; TEMP 37; BMI 56.7
[2017-10-04 14:08] VITALS: BP 122/78; PULSE 84; RESP 16; TEMP 37; BMI 56.7
--- NOTE | 2017-10-04 14:26 | PN.PCM_ITS ---
(1) History of right below knee amputation Status: Chronic Current Visit: Yes Code(s): Z89.511 - Acquired absence of right leg below knee (2) Chronic ulcer of left foot with fat layer exposed Status: Resolved Current Visit: Yes Code(s): L97.522 - Non-pressure chronic ulcer of other part of left foot with fat layer exposed (3) Type 2 diabetes mellitus with diabetic polyneuropathy Status: Chronic Current Visit: Yes Code(s): E11.42 - Type 2 diabetes mellitus with diabetic polyneuropathy (4) PAD (peripheral artery disease) Status: Chronic Current Visit: Yes Code(s): I73.9 - Peripheral vascular disease, unspecified Type of Wound Date of Service: 10/05/17 Chief Complaint: Right leg ulcer healed. left foot ulcer healed History of Wound: This 52-year-old male with diabetes and peripheral vascular disease presents the wound care center for chronic right leg ulcer and his previous below-knee amputation stump site and chronic left foot ulcer. He denies drainage and thinks the left foot ulcers now healed he wears a cam walker boot with offloading Plastizote to the left foot. [facility] and continues to work with physical therapy for balance , transfers, gait training, and offloading. He no longer walks on the left limb. He denies fever, chill, nausea, vomiting. He did recently see Dr. Cristina with vascular surgery who recently had a successful vascular surgery to restore popliteal flow into the posterior tibial artery and into the left foot. Progress of Wound: Healed right leg wound. left ulcer foot healed - Physical Exam Vital Signs Temp Pulse Resp BP 98.6 F 84 16 122/78 H 10/04/17 14:08 10/04/17 14:08 10/04/17 14:08 10/04/17 14:08 General: Alert, Oriented x3, Cooperative Extremities: No cyanosis, No edema, Capillary Refill Less than 3 Seconds - To all digits of the left foot, No Calf Tenderness - Negative Germán and Cobian sign left lower extremity, Diminished Peripheral Pulses, - - Right below-knee amputation healed Skin: Ulcer/ Wound - There is no purulence, erythema, streaking, odor or infection. The skin is hairless and atrophic to lower extremities. There is full epithelialization to the plantar left foot and the site has healed today. Wound Measurements and Assessment WC - Nurse 1 - General Ulcer Measurement Start: 10/04/17 14:08 Freq: Status: Active Protocol: Activity Type Activity Date Activity User E-Sign Co-Sign Detail Recorded Client Recorded Date Recorded By Document 10/04/17 14:08 [id number] 10/04/17 14:11 [email or web address] 10/04/17 14:08 Wound Center Nurse 1 [Ulcer Assessment] #2 L Plantar -Combined with other wound No -Current Size (cm) - Length 0.1 -Current Size (cm) - Width 0.1 -Current Size (cm) - Depth 0.1 -Total Square Cm 0.01 -Photo Taken No -Epithelialization Large 67-100% -Tunneling No -Undermining/Tunneling No -Circular Undermining No -Texture (Elena-wound Skin Appearance) Callus -Moisture (Elena-wound Skin Appearance No Abnormality ) Assessed -Color (Elena-wound Skin Appearance) No Abnormality Assessed -Temperature (Elena-wound Skin No Abnormality Appearance) (Pt Warm) -Tenderness on Palpation (Elena-wound No Skin Appearance) -Ulcer Cleansing Rinsed/ Irrigated with Saline -Foul Odor after Cleansing No -Anesthetic Used 5% Lidocaine Gel [Edema Assessment] -Lower Limb Edema Present NA Musculoskeletal: No Tenderness to Palpation of Joints or Extremities, Muscle Wasting, - - Prominent metatarsal heads left foot Neurological: - - Lack of epicritic sensation noted to light touch bilateral lower extremities Psych/Mental Status: Normal Affect, Appropriate Debridement Note No debridement was completed today - The wound sites have healed Assessment/Plan Active Problems History of right below knee amputation (Chronic) Type 2 diabetes mellitus with diabetic polyneuropathy (Chronic) PAD (peripheral artery disease) (Chronic) Assessment: Left foot ulcer healed. Right leg ulcer healed. Right below-knee amputation. Left Hammer digit syndrome. Peripheral vascular disease status post stenting to the popliteal artery on the right lower extremity and recently the left lower extremity. Diabetes with peripheral neuropathy. Malnutrition. Delayed healing. History of drug abuse. Smoker Plan: I reviewed and discussed his plan today. Ulcer debridement was not performed today because the wound site is healed. There is a callus that is recently healed site with some sub-hemorrhagic changes noted. He was reassured there are no wounds or infection noted today to either extremity. He tolerated this well. To discontinue dressing care to continue to offload with cam walker and felt liner as this new skin remodels. It is okay to fully weight-bear with a cam walker onto the left lower extremity. To avoid excessive activities. Was advised to lines his heel up properly in the back of a cam walker. In order for extra-depth diabetic she will with dual density Plastizote liner was provided and he was advised to obtain this from the antibiotic. This is for the left lower extremity. He has known peripheral vascular disease with right popliteal stenting performed by vascular surgeon, Dr. Cristina. He also had recent left lower extremity popliteal stenting with successful perfusion through the posterior tibial artery into the left foot. To follow-up with Dr. Cristina as advised. It is okay to discontinue the nutritional supplements due to wound healing at this time. To continue to proceed with right lower extremity strength wrap application to the below-knee amputation site and progression into prosthetic under the guidance of his physical therapist, Shirley caballero, and orthopedic surgeon. He is discharged from the wound care center at this time. I advised him to follow-up at the foot and ankle center within 1-2 months for risk assessment and web marketing assistant with palliative care. He is still considered high risk for reopening of the wound site.
== END 2017-10-24 23:59 ==
LOC: WC 12:35
PROVIDERS: Visit Provider Podiatrist
DX: Z09 Encounter for follow-up examination after completed treatment for conditions other than malignant neoplasm (principal); E11.42 Type 2 diabetes mellitus with diabetic polyneuropathy; E11.51 Type 2 diabetes mellitus with diabetic peripheral angiopathy without gangrene; Z89.511 Acquired absence of right leg below knee
CPT/HCPCS: 99213; G0463

== ENCOUNTER → 2017-11-09 12:25 | Outpatient (CLI) | payer MEDICAID, SELFPAY ==
[2017-11-09 14:12] LABS: Absolute Lymphocyte Count 1.49 X10^3/ul (0.83-4.51); Absolute Neutrophil Count 6.2 X10^3/uL (2.0-7.7); Basophil# 0.02 X10^3/uL; Basophil% 0.2 % (0-1); Eosinophil# 0.29 X10^3/uL; Eosinophils% 3.3 % (0-5); Hematocrit 38.2 % (40-54); Hemoglobin 13.1 g/dl (13.0-16.5); Lymphocyte # 1.49 X10^3/ul (4.0); Mean Corp Hgb Conc 34.3 g/gl (32-36); Mean Corpuscular Volume 96.2 fL (80-94); Mean Platelet Vol. 9.3 fl (6.2-12.0); Monocyte# 0.74 X10^3/uL; Monocyte% 8.4 % (0-10); Neutrophil # 6.18 X10^3/uL (2.7-7.7); Neutrophil % 70.6 % (47-70); Platelet Count 257 K/mm3 (150-450); Red Blood Count 3.97 M/mm3 (4.6-6.2); White Blood Count 8.8 K/mm3 (4.4-11.0)
[2017-11-09 14:14] LABS: POSITIVE COUNT NO; POSITIVE DIFFERENTIAL NO; POSITIVE MORPHOLOGY NO
[2017-11-09 14:16] LABS: ALB/GLOB Ratio 0.7 RATIO (0.9-2.4); AST(SGOT) 29 U/L (15-37); Alanine Aminotransfer ALT/SGPT 54 U/L (16-61); Albumin, Serum 3.4 g/dL (3.2-5.0); Alkaline Phosphatase 130 U/L (45-117); Anion Gap 9 (5-15); BUN 26 mg/dL (7-18); BUN/Creat Ratio 21.5 RATIO (10-20); Chloride 104 mmol/L (98-107); Creatinine, Serum 1.21 mg/dL (0.70-1.30); EST Glomerular Filtration Rate 66 mL/min (>60); Est Glom Filt Rate - Afr Amer 80 mL/min (>60); Globulin 4.6 g/dL (2.2-4.2); Glucose 285 mg/dL (74-106); PSA,Total - Annual Screen 0.24 ng/mL (0.00-4.00); Potassium 4.6 mmol/L (3.5-5.1); Sodium Level 139 mmol/L (136-145); Thyroid Stim Hormone (TSH) 2.95 uIU/mL (0.358-3.74)
[2017-11-13 14:07] LABS: Comment 1a (.); HCV Quant. RNA PCR See Final Results IU/mL (.); HCV RNA-PCR, QUANT 20700000 IU/mL (.)
[2017-11-14 10:27] LABS: HCV log 10 7.316 (.)
[2017-11-16 13:31] LABS: Hepatitis C Genotype 1a
== END ==
PROVIDERS: Visit Provider Family Medicine Geriatric Medicine
DX: B19.20 Unspecified viral hepatitis C without hepatic coma (principal); E11.9 Type 2 diabetes mellitus without complications; Z12.5 Encounter for screening for malignant neoplasm of prostate
CPT/HCPCS: 36415; 80053; 84153; 84443; 85025; 87521; 87522; 87902; G0103